=== PATIENT | male | born 1955 | race Caucasian/White ===

== ENCOUNTER → 2024-02-27 | Outpatient (CLI) | payer OTHER, SELFPAY ==
[2024-02-27 10:33] LABS: Basophils % (Auto) 1 % (0-2.5); Eosinophils # (Auto) 0.1 Thou/mm3 (0.0-0.5); Eosinophils % (Auto) 1 % (0-10); Hematocrit 43.2 % (41.0-53.0); Hemoglobin 13.9 g/dL (13.5-16.0); Immature Granulocytes % (Auto) 0 % (0-0); Immature Granulocytes Auto 0.02 Thou/mm3 (0.00-0.00); Lymphocytes # (Auto) 1.2 Thou/mm3 (1.0-4.8); Lymphocytes % (Auto) 22 % (10-50); Mean Corpuscular HGB Conc 32.2 g/dl (31.0-37.0); Mean Corpuscular Hemoglobin 28.5 pg (25.0-35.0); Mean Corpuscular Volume 89 fL (80-100); Monocytes # (Auto) 0.4 Thou/mm3 (0.0-0.8); Monocytes % (Auto) 7 % (0-12); Neutrophils # (Auto) 3.6 Thou/mm3 (1.8-7.7); Neutrophils % (Auto) 68 % (37-80); Nucleated Red Blood Cell % 0 /100 WBC (0); Platelet Count 332 Thou/mm3 (140-440); RDW Standard Deviation 45.8 fL (35.1-43.9); Red Blood Count 4.88 Miln/mm3 (4.50-5.90); White Blood Count 5.3 Thou/mm3 (3.8-10.6)
[2024-02-27 11:00] LABS: Parathyroid Hormone Intact 94.7 pg/ml (18.5-88.0)
[2024-02-27 11:13] LABS: Alanine Aminotransferase 10 U/L (10-49); Albumin, Serum 4.4 gm/dL (3.4-4.8); Alkaline Phosphatase 72 U/L (46-116); Anion Gap 9 (7-16); Aspartate Amino Transferase 14 U/L (0-34); BUN/Creatinine Ratio 15 Ratio (12-20); Bilirubin,Total 0.7 mg/dL (0.3-1.2); Blood Urea Nitrogen 23 mg/dL (9-23); Calcium 9.4 mg/dL (8.3-10.6); Calcium (Corrected) 9.4 mg/dL (8.5-10.1); Cardiac Risk Estimate 4.3 RATIO (4.0-6.7); Chloride 103 mMol/L (98-107); Cholesterol 182 mg/dL (132-200); Creatinine (Component) 1.5 mg/dL (0.6-1.3); Globulin 2.2 gm/dL (2.3-3.5); Glucose 109 mg/dL (74-106); HDL Cholesterol 42 mg/dL (40-60); LDL Cholesterol,Calculated 118 mg/dL (0-130); Osmolality,Calculated 274 (275-295); Sodium 135 mMol/L (136-145); Total Protein 6.6 gm/dL (5.7-8.2); Triglycerides 110 mg/dL (30-150); eGFR 50 See Note
[2024-02-27 11:33] LABS: Glucose Estimated Average 105 mg/dL (80-131); Hemoglobin A1C 5.3 % Hgb (4.8-6.0)
== END | disposition home or self-care (01) ==
LOC: COPL 09:04
PROVIDERS: PCP Internal Medicine; Referring Provider Urology; Visit Provider Internal Medicine
DX: I12.9 Hypertensive chronic kidney disease with stage 1 through stage 4 chronic kidney disease, or unspecified chronic kidney disease (principal); E11.22 Type 2 diabetes mellitus with diabetic chronic kidney disease; N18.30 Chronic kidney disease, stage 3 unspecified; N20.0 Calculus of kidney
CPT/HCPCS: 36415; 80053; 80061; 81001; 82043; 82570; 83036; 83970; 85025

== ENCOUNTER → 2024-05-02 | Outpatient (CLI) | payer OTHER, SELFPAY ==
[2024-05-02 11:30] LABS: Basophils % (Auto) 1 % (0-2.5); Eosinophils % (Auto) 1 % (0-10); Hematocrit 46.1 % (41.0-53.0); Hemoglobin 15.5 g/dL (13.5-16.0); Immature Granulocytes % (Auto) 0 % (0-0); Immature Granulocytes Auto 0.02 Thou/mm3 (0.00-0.00); Lymphocytes # (Auto) 1.3 Thou/mm3 (1.0-4.8); Lymphocytes % (Auto) 28 % (10-50); Mean Corpuscular HGB Conc 33.6 g/dl (31.0-37.0); Mean Corpuscular Hemoglobin 28.8 pg (25.0-35.0); Mean Corpuscular Volume 86 fL (80-100); Monocytes # (Auto) 0.4 Thou/mm3 (0.0-0.8); Monocytes % (Auto) 9 % (0-12); Neutrophils # (Auto) 2.8 Thou/mm3 (1.8-7.7); Neutrophils % (Auto) 61 % (37-80); Nucleated Red Blood Cell % 0 /100 WBC (0); Platelet Count 346 Thou/mm3 (140-440); RDW Standard Deviation 51.8 fL (35.1-43.9); Red Blood Count 5.39 Miln/mm3 (4.50-5.90); White Blood Count 4.5 Thou/mm3 (3.8-10.6)
[2024-05-02 11:41] LABS: Glucose Estimated Average 114 mg/dL (80-131); Hemoglobin A1C 5.6 % Hgb (4.8-6.0)
[2024-05-02 12:05] LABS: Alanine Aminotransferase 10 U/L (10-49); Albumin, Serum 4.5 gm/dL (3.4-4.8); Alkaline Phosphatase 65 U/L (46-116); Anion Gap 11 (7-16); Aspartate Amino Transferase 11 U/L (0-34); BUN/Creatinine Ratio 19 Ratio (12-20); Bilirubin,Total 0.8 mg/dL (0.3-1.2); Blood Urea Nitrogen 27 mg/dL (9-23); Calcium 9.6 mg/dL (8.3-10.6); Calcium (Corrected) 9.6 mg/dL (8.5-10.1); Carbon Dioxide 20.7 mMol/L (20.0-31.0); Cardiac Risk Estimate 3.4 RATIO (4.0-6.7); Chloride 104 mMol/L (98-107); Cholesterol 165 mg/dL (132-200); Creatinine (Component) 1.4 mg/dL (0.6-1.3); Globulin 2.2 gm/dL (2.3-3.5); Glucose 113 mg/dL (74-106); HDL Cholesterol 49 mg/dL (40-60); LDL Cholesterol,Calculated 103 mg/dL (0-130); Osmolality,Calculated 278 (275-295); Potassium 4.7 mMol/L (3.4-5.1); Sodium 136 mMol/L (136-145); Total Protein 6.7 gm/dL (5.7-8.2); Triglycerides 63 mg/dL (30-150); eGFR 55 See Note
== END | disposition home or self-care (01) ==
LOC: COPL 10:29
PROVIDERS: PCP Internal Medicine; Referring Provider Internal Medicine; Visit Provider Internal Medicine
DX: N17.9 Acute kidney failure, unspecified (principal); E11.9 Type 2 diabetes mellitus without complications; I10 Essential (primary) hypertension; E78.5 Hyperlipidemia, unspecified
CPT/HCPCS: 36415; 80053; 80061; 81001; 83036; 85025

== ENCOUNTER 2024-05-10 01:44 | Emergency (ER) | payer OTHER, SELFPAY ==
[2024-05-10 01:45] VITALS: BMI 35.2
--- NOTE | 2024-05-10 01:58 | XR_ITS ---
Examination: CT abdomen and pelvis without contrast. Coronal 3-D reconstructions. Sagittal 2-D reconstructions. Date and time of exam:May 10, 2024 0227 hrs. Comparison February 05, 2024 Indications: Abdominal pain and constipation beginning 4 days ago CTDI: vol (mGy): 17.9 DLP: (mGycm): 1038 Technique: Axial images of the abdomen have been obtained, 3 mm slice thickness Intravenous contrast material has not been administered. Low dose protocols were performed. One or more of the following dose reduction techniques were used; automated exposure control, adjustment of the mA and/or KV according to patient size, use of iterative reconstruction technique. Findings: Moderate enlargement left atrium left ventricle No focal liver lesions No gallstones Splenomegaly AP dimension 14.8 cm No pancreatic or adrenal mass Bilateral significant renal cortical thinning, significant perinephric stranding Right renal calculi, the largest in the lower pole 6 mm 23 mm upper pole right renal mass, consider solid mass complex cystic mass coronal image 79 No hydronephrosis Heavy abdominal aortic calcification Trace ascites No bowel obstruction Significant thickening urinary bladder wall up to 17 mm Prostatomegaly, AP dimension 5 cm Small fat-containing inguinal hernias Impression: Mild splenomegaly Significant bilateral renal cortical thinning Significant bilateral perinephric stranding, consider urinary tract infection, nephritis 23 mm complex mass upper pole right kidney, recommend MRI kidneys follow-up pre and postcontrast No bowel obstruction Significant irregular thickening of the urinary bladder wall, differential would include cystitis, early bladder cancer not excluded
--- NOTE | 2024-05-10 01:59 | PD.EDRME ---
Rapid Medical Screening Exam RME Arrival date/time: 05/10/24 01:44 68-year-old male with no known medical history presents to the emergency room with a chief complaint of abdominal distention and constipation x 4 days. I have greeted and performed a focused initial assessment of this patient. A comprehensive ED assessment and evaluation of the patient, analysis of all test results, and completion of the medical decision making process will be conducted by additional ED providers. Chief Complaint: Abdominal Pain Vital signs reviewed by provider: Yes
[2024-05-10 02:32] VITALS: BP 140/85; PULSE 83; RESP 18; TEMP 36.7; O2SAT 96
[2024-05-10 02:32] LABS: Basophils % (Auto) 1 % (0-2.5); Eosinophils # (Auto) 0.1 Thou/mm3 (0.0-0.5); Eosinophils % (Auto) 1 % (0-10); Hematocrit 47.1 % (41.0-53.0); Hemoglobin 15.5 g/dL (13.5-16.0); Immature Granulocytes % (Auto) 1 % (0-0); Immature Granulocytes Auto 0.03 Thou/mm3 (0.00-0.00); Lymphocytes # (Auto) 1.5 Thou/mm3 (1.0-4.8); Lymphocytes % (Auto) 32 % (10-50); Mean Corpuscular HGB Conc 32.9 g/dl (31.0-37.0); Mean Corpuscular Hemoglobin 28.5 pg (25.0-35.0); Mean Corpuscular Volume 87 fL (80-100); Monocytes # (Auto) 0.4 Thou/mm3 (0.0-0.8); Monocytes % (Auto) 9 % (0-12); Neutrophils # (Auto) 2.6 Thou/mm3 (1.8-7.7); Neutrophils % (Auto) 56 % (37-80); Nucleated Red Blood Cell % 0 /100 WBC (0); Platelet Count 347 Thou/mm3 (140-440); Red Blood Count 5.44 Miln/mm3 (4.50-5.90); White Blood Count 4.7 Thou/mm3 (3.8-10.6)
[2024-05-10] MEDS: MAGNESIUM CITRATE 300 ML BTL PO (02:35)
[2024-05-10 02:47] LABS: Albumin, Serum 4.8 gm/dL (3.4-4.8); Albumin/Globulin Ratio 1.9 (1.2-2.2); Alkaline Phosphatase 67 U/L (46-116); Anion Gap 10 (7-16); Aspartate Amino Transferase 15 U/L (0-34); BUN/Creatinine Ratio 14 Ratio (12-20); Bilirubin,Total 0.5 mg/dL (0.3-1.2); Blood Urea Nitrogen 24 mg/dL (9-23); Calcium 9.6 mg/dL (8.3-10.6); Calcium (Corrected) 9.6 mg/dL (8.5-10.1); Carbon Dioxide 20.4 mMol/L (20.0-31.0); Chloride 105 mMol/L (98-107); Creatinine (Component) 1.7 mg/dL (0.6-1.3); Estimated Creatinine Clearance 51.9 mL/min (>60); Globulin 2.5 gm/dL (2.3-3.5); Glucose 114 mg/dL (74-106); Lipase 93 U/L (12-53); Osmolality,Calculated 275 (275-295); Potassium 4.2 mMol/L (3.4-5.1); Sodium 135 mMol/L (136-145); Total Protein 7.3 gm/dL (5.7-8.2); eGFR 43 See Note
[2024-05-10 02:53] LABS: Alanine Aminotransferase 11 U/L (10-49)
[2024-05-10 02:54] LABS: Collection Type, Urine Clean Catch
--- NOTE | 2024-05-10 03:07 | PRELIM_ITS ---
CT scan of the abdomen and pelvis without intravenous contrast (axial sections with sagittal and merlyn nal reformats) May 10, 2024 at 0227 hours Clinical History: Abdominal pain, constipation 4 days.C omparison: None.Findings:Bibasilar streaky atelectasis is present. There is streaky atelectasis/scarr ing in the right middle lobe. A small hiatal hernia is present.Nonspecific perinephric fat stranding and fluid is noted bilaterally. There is bilateral renal artery atherosclerosis. There are nonobstruc ting right renal calculi, the largest measuring 8 mm in the lower pole calyx. No ureteric calculus or hydroureteronephrosis. There is a 2.4 cm exophytic complex cyst/neoplasm from the upper pole of the right kidney. There is mild splenomegaly measuring 15.7 cm. The liver, gallbladder, pancreas and adre nals are unremarkable on this noncontrast study.A moderate amount of fecal material is present in the colon. No evidence of bowel obstruction. The appendix is within normal limits (images [id number]/[id number]). Th ere is a hernia mesh in the ventral abdominal wall. There is no mesenteric or retroperitoneal adenopa thy. The aorta and its branches demonstrate atheromatous calcification without evidence of aneurysm.T he urinary bladder is partially distended and demonstrates mild wall thickening with perivesical fat stranding. The prostate is moderately enlarged. There is no free fluid or free air.Degenerative pierre es are identified in the spine. 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 There are chronic fractures of the bilateral ribs.Impression:1. No evidence of bowel obstruction, free air or a bscess.2. Findings suspicious for acute cystitis. Recommend clinical and laboratory correlation.3. Pe rinephric fat stranding bilaterally. While nonspecific, the possibility of urinary infection cannot b e excluded. Recommend clinical correlation.4. Small nonobstructing right renal calculi. No ureteric c alculus or ureteral obstruction.5. Exophytic complex right renal cyst/neoplasm. Recommend correlation with sonography/contrast CT abdomen.6. Small hiatal hernia present. Report Electronically Signed By: Todd Payton 05/10/2024 3:07:33 AM [EST]
[2024-05-10 03:46] LABS: Bilirubin,Urine Negative (Negative); Blood,Urine Negative (Negative); Clarity,Urine Clear (Clear/Hazy); Color,Urine Lt-Yellow (Lt Yel-Yel); Glucose, Urine Negative (Negative); Ketones,Urine Negative (Negative); Leukocyte Esterase,Urine Negative (Negative); Nitrite,Urine Negative (Negative); Protein,Urine Trace (Neg - Trace); RBC,Urine < 1 /hpf (0-3); Specific Gravity,Urine 1.016 (1.001-1.035); Squamous Epithelial Cell,Urine < 1 /hpf (0-5); Urobilinogen,Urine Negative mg/dL (0.0-1.0); WBC,Urine 1 /hpf (0-5)
--- NOTE | 2024-05-10 04:15 | EDNOTE_ITS ---
ED Abdominal Pain RME/HPI General Chief Complaint: Abdominal Pain Stated complaint: NO BM X 4 DAYS Time seen by provider: 05/10/24 04:11 Arrival date/time: 05/10/24 01:44 Limitations: no limitations RME / HPI RME / HPI narrative: 05/10/24 01:44 68-year-old male with no known medical history presents to the emergency room with a chief complaint of abdominal distention and constipation x 4 days. I have greeted and performed a focused initial assessment of this patient. A comprehensive ED assessment and evaluation of the patient, analysis of all test results, and completion of the medical decision making process will be conducted by additional ED providers. -------- Dr. Chowdhury's Main ED Evaluation: 68yo male with pmhx HTN presents to the ED for a chief complaint of constipation x 4 days. Patient reports associated abdominal distention. He states he's been taking Miralax without any relief. He denies any N/V, fever, chills or any other associated symptoms. He denies taking any enemas. No known allergies. Related Data Previous Rx's ?Medication ?Instructions ?Recorded dicyclomine 20 mg tablet 20 mg PO BID #20 tabs 02/05/24 docusate sodium 250 mg capsule 250 mg PO QDAY #20 caps 02/05/24 Allergies Allergy/AdvReac Type Severity Reaction Status Date / Time No Known Allergies Allergy Verified 05/10/24 01:46 Review of Systems Review of Systems Systems Reviewed: All systems reviewed, normal except as documented Past Medical History Past Medical History NEUROLOGIC: Negative Neurological Disorders or Seizures CARDIAC: Positive Cardiac Disorders and Hypertension; Negative Congestive Heart Failure RESPIRATORY: Negative Chronic Obstructive Pulmonary Disease (COPD) GASTROINTESTINAL: Negative Gastrointestinal Disorders GENITOURINARY: Negative Genitourinary Disorders or Renal Disease MUSCULOSKELETAL: Negative Musculoskeletal Disorders ENDOCRINE: Negative Endocrine Disorders, Diabetes Mellitus Type 1 or Diabetes Mellitus Type 2 HEMATOLOGIC: Negative Blood Disorders OTHER HISTORY: Positive Measles; Negative Hospitalization, Down Syndrome, Developmental Delay, Falls, Blood Transfusions, Anesthesia Reactions or Cancer Social History SMOKING STATUS: Never smoker ED Exam General Limitations: Present no limitations General appearance: Present alert and in no apparent distress Head Head exam: Present atraumatic Eye Eye exam: Present normal appearance, PERRL and EOMI ENT ENT exam: Present normal exam, normal oropharynx and mucous membranes moist Neck Neck exam: Present normal inspection, full ROM and trachea midline Chest Chest inspection: Present normal inspection and symmetric chest wall rise Respiratory Respiratory exam: Present normal lung sounds bilaterally Cardiovascular Cardiovascular exam: Present regular rate, normal rhythm and normal heart sounds Abdominal Exam Abdominal exam: Present soft, normal bowel sounds and other (large); Absent distention or rebound Extremities Exam Extremities exam: Present normal inspection and full ROM Back Exam Back exam: Present normal inspection and full ROM Neurological Exam Neurological exam: Present alert, oriented X3 and CN II-XII intact Psychiatric Psychiatric exam: Present normal affect and normal mood Skin Skin exam: Present warm, dry, intact and normal color Course Course Course Narrative: 0503: Patient had a large bowel movement and feels significantly better. Patient is stable to be discharged home. Quality Measures none Orders Category Date Time Status Fleet [Enema Administration] ONCE Care 05/10/24 04:[address] abdomen pelvis wo con Stat Exams 05/10/24 01:58 Taken CBC Stat Lab 05/10/24 02:18 Completed CMP [Comprehensive Metabolic Panel] Stat Lab 05/10/24 02:18 Completed Lipase Stat Lab 05/10/24 02:18 Completed UA [Urinalysis] Stat Lab 05/10/24 02:22 Completed Urine Culture Stat Lab 05/10/24 02:22 Received Dicyclomine [Bentyl] Med 05/10/24 04:29 Discontinued 20 mg PO X1 ONE Docusate Sod [Colace] Med 05/10/24 04:34 Discontinued 250 mg PO X1 ONE Docusate Sod [Colace] Med 05/10/24 04:34 Discontinued 250 mg PO X1 ONE Magnesium Citrate Liqd [Citrate of Magnesia Liqd] Med 05/10/24 01:58 Discontinued 300 ml PO X1 ONE Senna/Docusate Sod [Senokot S] Med 05/10/24 04:29 Discontinued 1 tab PO X1 ONE Senna/Docusate Sod [Senokot S] Med 05/10/24 04:29 Discontinued 1 tab PO X1 ONE Vital Signs Vital signs: Vital Signs Temperature 98.0 F 05/10/24 02:32 Pulse Rate 83 05/10/24 02:32 Respiratory Rate 18 05/10/24 02:32 Blood Pressure 140/85 H 05/10/24 02:32 Pulse Oximetry (%) 96 05/10/24 02:32 Oxygen Delivery Method Room Air 05/10/24 02:32 Pulse ox is 96% on room air, which is normal according to my interpretation. Abdominal Pain MDM Patient data External records reviewed:: [facility] previous records (Per chart review, patient was seen here on 02/05/24 for constipation.) Clinical information provided by:: patient Social determinants that could affect healthcare access:: none Patient has the following chronic illnesses:: HTN How is presenting disease/condition affected by chronic disease/condition?: uneffected by Evaluation data The following diagnostics were reviewed and interpreted by me:: lab results and radiology exam(s) Lab and/or radiology exams considered but not ordered:: none Interpretation Summary: CBC is normal, Creatinine is elevated at 1.7 (which is chronic), Lipase is slightly elevated, UA is unremarkable, according to my interpretation. ----- Telerad Preliminary Report Draft Patient: JUNIOR HUBBARD Record#: [id number] Birthdate: 1955 Age/Sex: 68 / M Location: [facility] Attending Dr: Ordering Physician: Date of Service: Procedure(s): Accession Number(s): cc: ~ CT scan of the abdomen and pelvis without intravenous contrast (axial sections with sagittal and coronal reformats) May 10, 2024 at 0227 hours Clinical History: Abdominal pain, constipation 4 days. Comparison: None. Findings: Bibasilar streaky atelectasis is present. There is streaky atelectasis/scarring in the right middle lobe. A small hiatal hernia is present. Nonspecific perinephric fat stranding and fluid is noted bilaterally. There is bilateral renal artery atherosclerosis. There are nonobstructing right renal calculi, the largest measuring 8 mm in the lower pole calyx. No ureteric calculus or hydroureteronephrosis. There is a 2.4 cm exophytic complex cyst/neoplasm from the upper pole of the right kidney. There is mild splenomegaly measuring 15.7 cm. The liver, gallbladder, pancreas and adrenals are unremarkable on this noncontrast study. A moderate amount of fecal material is present in the colon. No evidence of bowel obstruction. The appendix is within normal limits (images [id number]/[id number]). There is a hernia mesh in the ventral abdominal wall. There is no mesenteric or retroperitoneal adenopathy. The aorta and its branches demonstrate atheromatous calcification without evidence of aneurysm. The urinary bladder is partially distended and demonstrates mild wall thickening with perivesical fat stranding. The prostate is moderately enlarged. There is no free fluid or free air. Degenerative changes are identified in the spine. 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 There are chronic fractures of the bilateral ribs. Impression: 1. No evidence of bowel obstruction, free air or abscess. 2. Findings suspicious for acute cystitis. Recommend clinical and laboratory correlation. 3. Perinephric fat stranding bilaterally. While nonspecific, the possibility of urinary infection cannot be excluded. Recommend clinical correlation. 4. Small nonobstructing right renal calculi. No ureteric calculus or ureteral obstruction. 5. Exophytic complex right renal cyst/neoplasm. Recommend correlation with sonography/contrast CT abdomen. 6. Small hiatal hernia present. Report Electronically Signed By: Todd Payton 05/10/2024 3:07:33 AM [EST] Medications / Prescriptions Medications or Prescriptions considered but not ordered:: none Medication administrations:: Medication Administration History Discontinued Medications Dicyclomine HCl (Dicyclomine 10 Mg Capsule) 20 mg PO X1 ONE Stop: 05/10/24 04:30 Last Admin: 05/10/24 05:03 Dose: 20 mg Documented By: ABRIL Docusate Sodium (Docusate Sod 250 Mg Capsule) 250 mg PO X1 ONE; Protocol Stop: 05/10/24 04:35 Last Admin: 05/10/24 04:37 Dose: Not Given Documented By: ABRIL Non-Admin Reason: Discontinued Docusate Sodium (Docusate Sod 250 Mg Capsule) 250 mg PO X1 ONE; Protocol Stop: 05/10/24 04:35 Last Admin: 05/10/24 05:03 Dose: 250 mg Documented By: GB Magnesium Citrate (Magnesium Citrate 300 Ml Btl) 300 ml PO X1 ONE Stop: 05/10/24 01:59 Last Admin: 05/10/24 02:35 Dose: 300 ml Documented By: AWAIS Sennosides (Senna/Docusate Sod 1 Tab Tablet) 1 tab PO X1 ONE; Protocol Stop: 05/10/24 04:30 Last Admin: 05/10/24 04:31 Dose: Not Given Documented By: GB Non-Admin Reason: Discontinued Sennosides (Senna/Docusate Sod 1 Tab Tablet) 1 tab PO X1 ONE; Protocol Stop: 05/10/24 04:30 Last Admin: 05/10/24 04:38 Dose: Not Given Documented By: ABRIL Non-Admin Reason: Discontinued see above Consultations Consultation(s) initiated? (list below): No Diagnosis Differential diagnosis abdominal pain: constipation, small bowel obstruction and other (fecal impaction, dehydration) Most likely diagnosis given after review of the tests above:: see below Admission Indicated Admission indicated?: not indicated Admission Request Was there a request for admission?: No Disposition Plan Disposition Plan: Discharge Discharge Attestation Discharge Attestation: The patient and all family members were given an opportunity to ask questions and understood the discharge instructions. Discharge instructions specifically effects, indications for sooner follow up or return to the emergency department, and the expected course of current diagnosis. Patient condition: Stable Discharge Plan Plan Patient Disposition: HOME (Self Care) Patient condition on transfer: Stable Prescriptions/Referrals Prescriptions/Med Rec: No Action dicyclomine 20 mg tablet 20 mg PO BID Qty: 20 0RF docusate sodium 250 mg capsule 250 mg PO QDAY Qty: 20 0RF Referrals: Leslye Kraus)Clemente MD [Primary Care Provider] - In 1 week Problem List Clinical Impression: Constipation Patient/Caregiver Discharge Instructions Education Materials: ED Constipation (Adult) Additional Instructions: Continue your constipation meds as prescribed. Please return to emergency department for any worsening symptoms, or any other concerns. Print Language: Emirati Stand Alone Forms: Sherrie Award Info., Patient Portal Info Letter
--- NOTE | 2024-05-10 04:28 | PC.NURSE ---
Offered enema to pt. Pt asking for the same meds he got here last time he was here for constipation. Per chart review pt received docusate and dicyclomine. Spoke with MD Chowdhury who gave verbal orders for these meds.
[2024-05-10] MEDS: DOCUSATE SOD 250 MG CAPSULE PO (05:03)
[2024-05-10] MEDS: DICYCLOMINE 10 MG CAPSULE 20 MG PO (05:03)
--- NOTE | 2024-05-10 05:04 | PC.NURSE ---
Pt ambulated to restroom and stated he had one large BM. MD Chowdhury made aware.
[2024-05-10 05:44] VITALS: PULSE 79; RESP 15; O2SAT 98
== END 2024-05-10 05:44 | disposition home or self-care (01) ==
PROVIDERS: Nurse Practitioner Family; Emergency Provider Emergency Medicine; PCP Internal Medicine
DX: K59.00 Constipation, unspecified (principal); N20.0 Calculus of kidney; K44.9 Diaphragmatic hernia without obstruction or gangrene; N28.1 Cyst of kidney, acquired
CPT/HCPCS: 36415; 74176; 80053; 81001; 83690; 85025; 87086; 99284; A9270

== ENCOUNTER 2024-05-17 07:37 | Emergency (ER) | payer OTHER, SELFPAY ==
[2024-05-17 07:44] VITALS: BP 129/79; PULSE 73; RESP 19; TEMP 36.4; O2SAT 97; BMI 34.7
--- NOTE | 2024-05-17 09:28 | EDNOTE_ITS ---
ED General RME/HPI General Chief complaint: Abdominal Pain Stated complaint: NO BOWEL MOVEMENT X TUESDAY EVENING; ER ON TUESDAY Time Seen by Provider: 05/17/24 09:00 Arrival date/time: 05/17/24 07:37 RME / HPI RME / HPI narrative: Chief complaint: abdominal distention HPI: Patient is a 68 year old male with PMH of chronic constipation x 3 years after a traumatic pelvic injury, colonic polyps and obesity, who presented to the ER with severe abdominal distention for the last 4 days. Patient has been unable to have a bowel movement for 4 days, and unable to pass gas over the last 3 days. He was recently seen in the ER on Tuesday and was given MiraLAX with a successful bowel movement a couple hours later. He was discharged on MiraLAX which he took on Tuesday, about 48 hours ago, with minimal relief at home. He has a history of using multiple laxatives including enemas, with minimal relief. At this time he denies any abdominal pain, and endorses only discomfort due to distention. He does feel the urge to have a bowel movement, however when he sits on the commode there is no output. He denies any fevers, nausea / vomiting or other systemic symptoms at this time. Medication list: Linzess q daily Past surgical history: No abdominal surgeries Left foot bunion removal Allergies: NKFDA Social history: Marital?Status:? Tobacco?Use:?Denies ETOH?Use:?Denies Drug?Note:?Denies Social?History?Note:?Lives?alone at home, son visits frequently Family history: Denies any family history of colon cancer, stroke or other bowel issues. Father?, myocardial infarction at age 63. Related Data Previous Rx's ?Medication ?Instructions ?Recorded dicyclomine 20 mg tablet 20 mg PO BID #20 tabs 02/05/24 docusate sodium 250 mg capsule 250 mg PO QDAY #20 caps 02/05/24 glycerin (adult) 1 supp SD QDAY constipation 1 05/17/24 month #25 ea polyethylene glycol 3350 17 4 g PO QDAY 5 days #119 grams 05/17/24 gram/dose oral powder (Miralax) Allergies Allergy/AdvReac Type Severity Reaction Status Date / Time No Known Allergies Allergy Verified 05/17/24 07:39 Review of Systems Review of Systems Narrative Review of Systems: GENERAL: Denies fevers/chills or diaphoresis. HEENT: Denies headache or visual/hearing changes. Denies nasal discharge. NEURO: Denies unusual weakness or difficulty speaking. CARDIO: Denies chest pain or palpitations. PULM: Denies SOB, coughing, or wheezing. GI: Abdominal distention, denies abdominal pain, N/V/D. Reports no BM over the last 4 days, no flatus over the last 3 days URO: Denies burning/itching/pain/urinary changes. MSK/EXT/SKIN: Denies joint/skeletal/muscle pain, issues/changes in upper or lower extremities, itchiness, or superficial pain. PSYCH: Cooperative, pleasant mood & affect. The rest of the review of systems is otherwise negative. ED Exam Narrative Physical exam: Constitutional Alert, oriented x4 and in moderate discomfort HEENT Vision grossly intact. Patent nares. Trachea midline. Respiratory Chest normal on inspection and clear to auscultation bilaterally. Cardiovascular S1 and S2 audible, RRR. No murmurs or carotid bruit. No gross JVD. Abdominal Significantly distended, non tender to palpation in all quadrants. BS + Genitourinary No bladder tenderness, no flank pain. Normal to palpation. Musculoskeletal Extremities tone within normal limits. 2+ LE edema. Neurological CN II - XII grossly intact. Extremity motor and sensation grossly intact. Skin Warm, dry and intact. No apparent lesions. Psychiatric Patient has a good affect, is cooperative. Course Quality Measures none Orders Category Date Time Status Glycerin Supp Adult Med 05/17/24 09:39 Discontinued 1 each SD X1 ONE Polyeth Glycol/Propylene Glyco [Miralax Pkt] Med 05/17/24 09:39 Discontinued 17 gm PO X1 ONE Vital Signs Vital signs: Vital Signs Temperature 97.6 F 05/17/24 07:44 Pulse Rate 73 05/17/24 07:44 Respiratory Rate 19 05/17/24 07:44 Blood Pressure 129/79 05/17/24 07:44 Pulse Oximetry (%) 97 05/17/24 07:44 Oxygen Delivery Method Room Air 05/17/24 07:[address] [facility] Patient data External records reviewed:: [facility] previous records Clinical information provided by:: patient Social determinants that could affect healthcare access:: none Patient has the following chronic illnesses:: chronic constipation x 3 years after a traumatic pelvic injury, colonic polyps and obesity How is presenting disease/condition affected by chronic disease/condition?: exacerbated by Evaluation data The following diagnostics were reviewed and interpreted by me:: radiology exam(s) Lab and/or radiology exams considered but not ordered:: Repeat CT abdo Recent abdomen CT scans x2, last one from 05/10 Interpretation Summary: Abdominal distention secondary to constipation and obstipation Medications Medications considered but not ordered:: Lactulose Medication administrations:: Medication Administration History Discontinued Medications Glycerin (Glycerin, Adult 1 Ea Supp) 1 each SD X1 ONE Stop: 05/17/24 09:40 Last Admin: 05/17/24 10:48 Dose: 1 each Documented By: FOSTER Polyethylene Glycol (Polyethylene Glycol 17 Gm Packet) 17 gm PO X1 ONE Stop: 05/17/24 09:40 Last Admin: 05/17/24 10:48 Dose: 17 gm Documented By: FOSTER p.o. only Consultations Consultation(s) initiated? (list below): No Diagnosis Differential Diagnosis ED Complaint MDM: SBO Most likely diagnosis given after review of the tests above:: Severe constipation Admission Indicated Admission indicated?: not indicated Explain why admission is indicated or not indicated:: will do a 3-5 day trial of DAILY laxative. Admission Request Was there a request for admission?: No Disposition Plan Disposition Plan: Discharge Discharge Attestation Discharge Attestation: The patient and all family members were given an opportunity to ask questions and understood the discharge instructions. Discharge instructions specifically effects, indications for sooner follow up or return to the emergency department, and the expected course of current diagnosis. Patient condition: Stable Medical Decision Making MDM Narrative MDM Narrative: Patient is a 68 year old male in ER for constipation x 4 days. HE was last seen in ER 4 days ago when for similar presentation. at that time he was given miralax x 1 and had a large BM. He was advised daily laxatives however has not been compliant and only used laxatives x1 in this 4 day period. Discharge plan: - Follow up with PCP within 1 week - Take Miralax daily - Take Glycerrin suppository daily - As needed Mineral oil enema if no relief from the above two - Recommend high fiber diet - Return to ED if symptoms worsen or do not resolve in 5 days Differential Diagnosis Differential Diagnosis: SBO Discharge Plan Plan Patient Disposition: HOME (Self Care) Patient condition on transfer: Stable Prescriptions/Referrals Prescriptions/Med Rec: New glycerin (adult) Suppository 1 supp SD QDAY 30 Days Qty: 25 0RF polyethylene glycol 3350 [Miralax] 17 gram/dose powder 4 g PO QDAY 5 Days Qty: 119 0RF No Action dicyclomine 20 mg tablet 20 mg PO BID Qty: 20 0RF docusate sodium 250 mg capsule 250 mg PO QDAY Qty: 20 0RF Referrals: Clemente Gavin MD [Primary Care Provider] - In 1 week Problem List Clinical Impression: Constipation Patient/Caregiver Discharge Instructions Other Activity Instructions:: Discharge plan: - Follow up with PCP within 1 week - Take Miralax daily - Take Glycerrin suppository daily - As needed Mineral oil enema if no relief from the above two - Recommend high fiber diet - Return to ED if symptoms worsen or do not resolve in 5 days Education Materials: Eating a High-Fiber Diet Print Language: [place] Stand Alone Forms: Sherrie Award Info., Patient Portal Info Letter Attestation Attestation The patient was seen by the PGY-2. I, the supervising physician, also encountered and examined the patient and remained throughout present during the entire ER visit. Deliberation with the PGY 2, workup, management, treatment, medical decision making, and documentation was formulated. I agree with the plan and documentation.
[2024-05-17 09:43] VITALS: BP 126/67; PULSE 67; RESP 16; TEMP 36.6; O2SAT 97
[2024-05-17] MEDS: GLYCERIN, ADULT 1 EA SUPP 1 EACH PR (10:48)
[2024-05-17] MEDS: POLYETHYLENE GLYCOL 17 GM PACKET PO (10:48)
== END 2024-05-17 11:06 | disposition home or self-care (01) ==
PROVIDERS: Emergency Provider Emergency Medicine; PCP Internal Medicine
DX: K59.00 Constipation, unspecified (principal)
CPT/HCPCS: 99282; A9270

== ENCOUNTER → 2024-08-13 | Outpatient (BNVA) | payer OTHER, SELFPAY | END | disposition home or self-care (01) | PROVIDERS: PCP Internal Medicine; Referring Provider Internal Medicine; Visit Provider Urology | DX: N40.1 Benign prostatic hyperplasia with lower urinary tract symptoms (principal); N13.8 Other obstructive and reflux uropathy; N32.89 Other specified disorders of bladder; N28.89 Other specified disorders of kidney and ureter; I10 Essential (primary) hypertension | CPT/HCPCS: 76872; 81003 ==

== ENCOUNTER 2024-08-19 00:42 | Emergency (ER) | payer OTHER, SELFPAY ==
[2024-08-19 00:43] VITALS: BMI 33.5
[2024-08-19 00:49] VITALS: BP 135/81; PULSE 78; RESP 20; TEMP 36.4; O2SAT 97
--- NOTE | 2024-08-19 01:12 | PD.EDRME ---
Rapid Medical Screening Exam RME Arrival date/time: 08/19/24 00:42 Chief Complaint: Abdominal Pain Time Seen by Provider: 08/19/24 00:53 Vital signs: Vital Signs Temperature 97.5 F 08/19/24 00:49 Pulse Rate 78 08/19/24 00:49 Respiratory Rate 20 08/19/24 00:49 Blood Pressure 135/81 H 08/19/24 00:49 Pulse Oximetry (%) 97 08/19/24 00:49 Oxygen Delivery Method Room Air 08/19/24 00:49 RME Narrative: sudden onset of left flank pain since 1999 last night. No vomiting or hematuria
--- NOTE | 2024-08-19 01:13 | XR_ITS ---
Examination: CT abdomen and pelvis without contrast. Coronal 3-D reconstructions. Sagittal 2-D reconstructions. Date and time of exam:August 19, 2024 0209 hours INDICATION: Left flank pain beginning 2 days ago CTDI: vol (mGy): 12.5 DLP: (mGycm): 735 Technique: Axial images of the abdomen have been obtained, 3 mm slice thickness Intravenous contrast material has not been administered. Low dose protocols were performed. One or more of the following dose reduction techniques were used; automated exposure control, adjustment of the mA and/or KV according to patient size, use of iterative reconstruction technique. Findings: Moderate enlargement cardiac contour No focal liver lesions Significant splenomegaly, liver is irregular in contour No gallstones No pancreatic or adrenal mass Prominent perinephric stranding with renal cortical thinning Multiple right renal calculi including a 4 mm calculus in the right renal pelvis, no hydronephrosis or ureteral calculi Aortic calcification no aneurysmal dilatation Normal appendix AP prostate dimension 5 cm Minimal urinary bladder wall thickening up to 3 mm Grade 1 anterolisthesis L5 on S1 IMPRESSION: Prominent perinephric stranding, consider urinary tract infection Multiple right renal calculi including a 4 mm calculus in the right renal pelvis No hydronephrosis or ureteral calculi Significant prostatomegaly Cystitis pattern
[2024-08-19] MEDS: ACETAMINOPHEN 500 MG TABLET 1000 MG PO (01:23)
[2024-08-19] MEDS: KETOROLAC INJ 60 MG/2 ML VIAL 30 MG IM (01:24)
[2024-08-19 01:55] VITALS: BP 125/73; PULSE 87; RESP 18; O2SAT 98
--- NOTE | 2024-08-19 02:11 | XR_ITS ---
Examination: AP chest single view TECHNIQUE: AP portable upright chest single view Exam date and time: August 19, 2024 0232 hours Comparison February 05, 2024 INDICATIONS: Sudden onset chest pain beginning 8:00 PM last night FINDINGS: Mild prominence cardiac contour No pneumonia or pulmonary edema Accentuation basilar bronchovascular markings IMPRESSION: Basilar bronchitis pattern Old right-sided rib fractures
[2024-08-19 02:14] LABS: Collection Type, Urine Clean Catch
[2024-08-19 02:16] LABS: Basophils % (Auto) 1 % (0-2.5); Eosinophils # (Auto) 0.1 Thou/mm3 (0.0-0.5); Eosinophils % (Auto) 1 % (0-10); Hematocrit 51.1 % (41.0-53.0); Hemoglobin 17.1 g/dL (13.5-16.0); Immature Granulocytes % (Auto) 0 % (0-0); Immature Granulocytes Auto 0.01 Thou/mm3 (0.00-0.00); Lymphocytes # (Auto) 1.5 Thou/mm3 (1.0-4.8); Lymphocytes % (Auto) 32 % (10-50); Mean Corpuscular HGB Conc 33.5 g/dl (31.0-37.0); Mean Corpuscular Hemoglobin 29.7 pg (25.0-35.0); Mean Corpuscular Volume 89 fL (80-100); Monocytes # (Auto) 0.4 Thou/mm3 (0.0-0.8); Monocytes % (Auto) 10 % (0-12); Neutrophils # (Auto) 2.6 Thou/mm3 (1.8-7.7); Neutrophils % (Auto) 56 % (37-80); Nucleated Red Blood Cell % 0 /100 WBC (0); Platelet Count 295 Thou/mm3 (140-440); RDW Standard Deviation 44.8 fL (35.1-43.9); Red Blood Count 5.75 Miln/mm3 (4.50-5.90); White Blood Count 4.5 Thou/mm3 (3.8-10.6)
[2024-08-19 02:18] LABS: Bilirubin,Urine Negative (Negative); Blood,Urine Negative (Negative); Clarity,Urine Clear (Clear/Hazy); Color,Urine Colorless (Lt Yel-Yel); Glucose, Urine Negative (Negative); Ketones,Urine Negative (Negative); Leukocyte Esterase,Urine Negative (Negative); Nitrite,Urine Negative (Negative); PH,Urine 6.5 (5.0-7.0); Protein,Urine Negative (Neg - Trace); RBC,Urine 1 /hpf (0-3); Specific Gravity,Urine 1.008 (1.001-1.035); Squamous Epithelial Cell,Urine 1 /hpf (0-5); Urobilinogen,Urine Negative mg/dL (0.0-1.0); WBC,Urine 1 /hpf (0-5)
--- NOTE | 2024-08-19 02:20 | PD.EDABDPN ---
ED Abdominal Pain RME/HPI General Chief Complaint: Abdominal Pain Stated complaint: LEFT FLANK PAIN Time seen by provider: 08/19/24 00:53 Arrival date/time: 08/19/24 00:42 Source: patient and family Mode of arrival: ambulatory Limitations: no limitations RME / HPI RME / HPI narrative: Dr. Barclay HPi: complaint: flank pain Onset (ago): day(s) Consistency: intermittent Location: LUQ Severity: mild Severity scale (1-10): 3 Quality: stabbing Radiation: none Migration to: no migration Relieving factors: movement Exacerbating factors: rest Context: other (none) Associated symptoms: other (No nausea vomiting diarrhea fever chills. History of constipation. Show look to the acid just medicine that you are back about her gave you) Related Data Previous Rx's ?Medication ?Instructions ?Recorded dicyclomine 20 mg tablet 20 mg PO BID #20 tabs 02/05/24 docusate sodium 250 mg capsule 250 mg PO QDAY #20 caps 02/05/24 Allergies Allergy/AdvReac Type Severity Reaction Status Date / Time No Known Allergies Allergy Verified 08/13/24 13:12 ED Exam General Limitations: Present no limitations General appearance: Present alert and in no apparent distress Head Head exam: Present atraumatic Eye Eye exam: Present normal appearance, PERRL and EOMI ENT ENT exam: Present normal exam, normal oropharynx and mucous membranes moist Neck Neck exam: Present normal inspection, full ROM and trachea midline Chest Chest inspection: Present normal inspection and symmetric chest wall rise Respiratory Respiratory exam: Present normal lung sounds bilaterally Cardiovascular Cardiovascular exam: Present regular rate, normal rhythm and normal heart sounds Abdominal Exam Abdominal exam: Present soft and normal bowel sounds Extremities Exam Extremities exam: Present normal inspection and full ROM Back Exam Back exam: Present normal inspection and full ROM Neurological Exam Neurological exam: Present alert, oriented X3 and CN II-XII intact Psychiatric Psychiatric exam: Present normal affect and normal mood Skin Skin exam: Present warm, dry, intact and normal color Course Course Course Narrative: CT scan is obtained. The patient is given pain medicine and he resolved. Quality Measures none Orders Category Date Time Status Insert IV NOW Care 08/19/24 02:[address] abdomen pelvis wo con Stat Exams 08/19/24 01:13 Taken CXRP [XR chest 1V portable] Stat Exams 08/19/24 02:11 Taken CBC Stat Lab 08/19/24 01:59 Completed CMP [Comprehensive Metabolic Panel] Stat Lab 08/19/24 01:59 Completed Lipase Stat Lab 08/19/24 01:59 Completed UA [Urinalysis] Stat Lab 08/19/24 02:04 Completed Acetaminophen Tab [Tylenol ES Tab] Med 08/19/24 01:15 Discontinued 1,000 mg PO X1 ONE Ketorolac Inj [Toradol Inj] Med 08/19/24 01:15 Discontinued 30 mg IM X1 ONE Reevaluation(s) Reevaluation #1: Pain-free. Time: 05:41 Vital Signs Vital signs: Vital Signs Temperature 97.5 F 08/19/24 00:49 Pulse Rate 78 08/19/24 00:49 Respiratory Rate 20 08/19/24 00:49 Blood Pressure 135/81 H 08/19/24 00:49 Pulse Oximetry (%) 97 08/19/24 00:49 Oxygen Delivery Method Room Air 08/19/24 00:49 Abdominal Pain MDM MDM Narrative MDM Narrative:: 69-year-old male who gets followed by urology presenting to the emergency department with left flank pain. While emergency department the patient had a workup to include no fever. The white count was normal at 4.[address] scan shows a simple right renal cyst. The patient has acute on chronic renal failure and creatinine is 1.5. The patient is having left flank pain and not right upper quadrant pain. There is no association with food. At this time I do not feel the patient needs a ultrasound to rule out gallbladder disease. He does have a total bili of 1.7 but otherwise his alk phos is normal. At this time I do not suspect that the patient is having acute cholecystitis. CT scan is not showing obvious abdominal mass. There is no evidence of UTI and otherwise the patient feels better after given some pain medicine here in the emergency department. He will continue his MiraLAX as needed for constipation. We discussed the amount but the patient is not very happy and does not appear to want to continue MiraLAX. He is followed by Dr. Gavin, he is taking his medications as prescribed. Return precautions are given and understood. Patient data External records reviewed:: [facility] previous records (Seen by urology) Clinical information provided by:: patient and family Social determinants that could affect healthcare access:: none Patient has the following chronic illnesses:: BPH. How is presenting disease/condition affected by chronic disease/condition?: exacerbated by Evaluation data The following diagnostics were reviewed and interpreted by me:: lab results Lab and/or radiology exams considered but not ordered:: none Interpretation Summary: CBC 4.5 and normal. Hemoglobin is 17 which is slightly elevated. Platelets are 295 which are normal. Sodium is 134. Potassium is 4.4. CO2 is 28. Otherwise BUN/creatinine are slightly elevated at 1.5. Patient has a history of chronic renal sufficiency and his previous creatinine is 1.7. Total bili is 1.7 which is abnormal. His bilirubin was normal at 0.5. Urinalysis is negative for blood, white cells, and has no evidence of UTI. CT scan of the abdomen and pelvis without intravenous contrast (axial sections with sagittal and coronal reformats) August 19, 2024 at 0209 hours Findings: Clear lung bases. Moderate cardiomegaly. Coronary atherosclerosis is noted. Liver, gallbladder , spleen, adrenal glands, pancreas unremarkable. Nonspecific 2.5 cm right renal cyst or nodule measuring 33 Hounsfield units, image 103. No ureteral stone or obstruction. The appendix is normal, best seen on image 105. No urinary tract stone or obstruction is identified. Aortic atherosclerosis without aneurysm. Bowel caliber is normal. The abdominal wall is unremarkable. Chronic L5 spondylolysis. No acute osseous process. No urinary tract stone or obstruction is identified. Impression: A 2.5 cm right renal cyst or nodule. Recommend follow-up. Medications / Prescriptions Medications or Prescriptions considered but not ordered:: respectively noneokay Medication administrations:: Medication Administration History Discontinued Medications Acetaminophen (Acetaminophen 500 Mg Tablet) 1,000 mg PO X1 ONE Stop: 08/19/24 01:16 Last Admin: 08/19/24 01:23 Dose: 1,000 mg Documented By: TAMMY Ketorolac Tromethamine (Ketorolac Inj 60 Mg/2 Ml Vial) 30 mg IM X1 ONE Stop: 08/19/24 01:16 Last Admin: 08/19/24 01:24 Dose: 30 mg Documented By: TAMMY As above Consultations Consultation(s) initiated? (list below): No Diagnosis Differential diagnosis abdominal pain: abdominal pain, calculus of kidney, constipation, diverticulitis, gastroenteritis, pancreatitis and small bowel obstruction Most likely diagnosis given after review of the tests above:: History of constipation, left flank pain Admission Indicated Admission indicated?: not indicated Admission Request Was there a request for admission?: No Disposition Plan Disposition Plan: Discharge Discharge Attestation Discharge Attestation: The patient and all family members were given an opportunity to ask questions and understood the discharge instructions. Discharge instructions specifically effects, indications for sooner follow up or return to the emergency department, and the expected course of current diagnosis. Patient condition: Stable Discharge Plan Plan Patient Disposition: HOME (Self Care) Patient condition on transfer: Stable Prescriptions/Referrals Prescriptions/Med Rec: No Action dicyclomine 20 mg tablet 20 mg PO BID Qty: 20 0RF docusate sodium 250 mg capsule 250 mg PO QDAY Qty: 20 0RF Referrals: Clemente Gavin MD [Primary Care Provider] - In 1 week Problem List Clinical Impression: Low back pain Patient/Caregiver Discharge Instructions Education Materials: ED Back Pain (Acute or Chronic), ED Constipation (Adult) Additional Instructions: General Adult Discharge Instructions DISCHARGE INSTRUCTIONS Even though you have been discharged from the Emergency Department, there are several things that you should do to ensure that you receive proper care: 1. DO READ your discharge instructions as these contain important information concerning your medical care. 2. If medication has been prescribed for your condition, fill the prescription as soon as possible and follow the directions on the medication. 3. RETURN AT ONCE TO THE EMERGENCY DEPARTMENT if you have any problems or concerns. These include but are not limited to fever, worsening pain(belly, chest, head, etc?), worsening shortness of breath, uncontrollable bleeding, inability to tolerate food and water, or any condition that makes you question your well-being. Also, if your symptoms do not improve in the next 12-24 hours, return to the ER or seek medical care immediately. 4. Be sure to follow up with your regular physician or specialist as instructed at discharge as this is the best way to ensure that you receive the very best of care. If you do not have a primary care physician, please contact a physician group and make an appointment. 5. Please visit [email or web address] for coupons regarding your prescriptions. It is a free service for you to use and can help reduce the cost of your medication. We would like to thank you for coming today and our hope is that we served you and your family well during your stay Print Language: Sri Lankan Stand Alone Forms: Sherrie Award Info., Patient Portal Info Letter
--- NOTE | 2024-08-19 02:23 | PD.EDABDPN ---
ED Abdominal Pain RME/HPI General Chief Complaint: Abdominal Pain Stated complaint: LEFT FLANK PAIN Time seen by provider: 08/19/24 00:53 Arrival date/time: 08/19/24 00:42 Source: patient and family (Son reports flank pain and was called to pick patient up) Mode of arrival: ambulatory Limitations: no limitations RME / HPI RME / HPI narrative: sudden onset of left flank pain since 1999 last night. No vomiting or hematuria. DR. COLEMAN MAIN ED EVALUATION: 69 y/o male with Hx of Hypertension, presents to ED BIB son c/o left flank pain x 12:30 AM. Son reports patient called him this morning c/o left kidney pain . Son states patient could vomit, but is unsure if patient is experiencing any constipation. Patient lives alone, still drives, and is coherent during the day. Patient recently saw Dr. Gavin who believes patient may have early onset dementia. She has prescribed patient a water pill due to lower extremity swelling and is referring patient to Dr. Woodrow Carty for CHF evaluation. Patent sees Dr. Scott for benign prostatic hypertrophy with urinary obstruction and urinary infections. Pending Cystoscopy and MRI. Patient is taking LASIX and Tamsulosin. -P MHx: Hypertension, benign prostatic hypertrophy with urinary obstruction and urinary infections -P Social Hx: Patient reports left flank pain. Son unsure if experiencing constipation or any other associated symptoms or aggravating factors. No modifying factors, no radiation, no migration. PMHx: Hypertension, benign prostatic hypertrophy with urinary obstruction and urinary infections Medications: Tamsulosin, LASIX Social history: PCP: Dr. Miller Related Data Previous Rx's ?Medication ?Instructions ?Recorded dicyclomine 20 mg tablet 20 mg PO BID #20 tabs 02/05/24 docusate sodium 250 mg capsule 250 mg PO QDAY #20 caps 02/05/24 Allergies Allergy/AdvReac Type Severity Reaction Status Date / Time No Known Allergies Allergy Verified 08/13/24 13:12 Review of Systems Review of Systems Systems Reviewed: All systems reviewed, normal except as documented Narrative Review of Systems: Gen: No fever, no chills, no weight loss PULM: No shortness of breath, no cough, no congestion CV: No chest pain, no dyspnea on exertion, no palpitations GI: Nausea : No frequency, no urgency, no dysuria Neuro: No weakness, no headache Past Medical History Past Medical History CARDIAC: Positive Cardiac Disorders and Hypertension OTHER HISTORY: Positive Measles ED Exam Narrative Physical exam: GENERAL: In general the patient is awake, interactive, in an emergency department gurney. HEAD/EYES/EARS/NOSE/THROAT: normo-cephalic, atraumatic, mucus membranes are moist. No cervical tenderness palpation midline. Supple neck. CARDIOVASCULAR: regular rate and regular rhythm, no murmurs, heart sounds are not distant, strong pulses in all four extremities that are equal and symmetric bilateral upper and lower extremities, normal capillary refill. CHEST/PULMONARY: normal chest rise and fall, good air movement, clear to auscultation bilaterally, normal inspiratory to expiratory ratios without evidence of respiratory distress. ABDOMEN: soft, not tender, no masses appreciated BACK: normal range of motion without pain. NEUROLOGICAL: cranio-facial features are symmetric, moves all four extremities equally without obvious limitations or weakness. EXTREMITY: no tenderness to palpation over the long bones or large joints of the bilateral upper and lower extremities, no joint swelling, no joint erythema, no signs of trauma, no unilateral leg swelling and no peripheral edema. SKIN: warm, dry, well-perfused, no jaundice, no rash, no telangiectasias or petechia. PSYCH: calm, cooperative, no evidence of psychosis or agitation General Limitations: Present no limitations Course Quality Measures none Orders Category Date Time Status Insert IV NOW Care 08/19/24 02:[address] abdomen pelvis wo con Stat Exams 08/19/24 01:13 Taken CXRP [XR chest 1V portable] Stat Exams 08/19/24 02:11 Taken CBC Stat Lab 08/19/24 01:59 Completed CMP [Comprehensive Metabolic Panel] Stat Lab 08/19/24 01:59 Completed Lipase Stat Lab 08/19/24 01:59 Completed UA [Urinalysis] Stat Lab 08/19/24 02:04 Completed Acetaminophen Tab [Tylenol ES Tab] Med 08/19/24 01:15 Discontinued 1,000 mg PO X1 ONE Ibuprofen Tab [Motrin Tab] Med 08/19/24 06:00 Discontinued 600 mg PO X1 ONE Ketorolac Inj [Toradol Inj] Med 08/19/24 01:15 Discontinued 30 mg IM X1 ONE Vital Signs Vital signs: Vital Signs Temperature 97.5 F 08/19/24 00:49 Pulse Rate 78 08/19/24 00:49 Respiratory Rate 20 08/19/24 00:49 Blood Pressure 135/81 H 08/19/24 00:49 Pulse Oximetry (%) 97 08/19/24 00:49 Oxygen Delivery Method Room Air 08/19/24 00:49 Abdominal Pain MDM MDM Narrative MDM Narrative:: Scribe Attestation: Katherine Esparza, am scribing for and in the presence of Dr. Douglas. Provider Notation: Although this document has been carefully reviewed, there may still be some phonetic and other typographical errors. These errors are purely grammatical due to imperfections in the software program and should not be construed in any way to compromise the substance of the patient's medical care during this visit. 55 y/o male with Hx of Hypertension, benign prostatic hypertrophy with urinary obstruction and urinary infections presents to ED c/o sudden, intermittent tight chest pain s/p methamphetamine use. EDC: DDX: See below Patient data External records reviewed:: [facility] previous records (Prior ED records reviewed from 05/10/24. Patient was seen for Constipation.) Clinical information provided by:: patient and family (Son: patient called him this morning c/o left kidney pain . Son states patient could vomit, but is unsure if patient is experiencing any constipation.) Social determinants that could affect healthcare access:: none Patient has the following chronic illnesses:: Hypertension, benign prostatic hypertrophy with urinary obstruction and urinary infections How is presenting disease/condition affected by chronic disease/condition?: exacerbated by Evaluation data The following diagnostics were reviewed and interpreted by me:: lab results and radiology exam(s) Lab and/or radiology exams considered but not ordered:: None Interpretation Summary: Chest X-Ray: Abdomino/Pelvic CT: Medications / Prescriptions Medications or Prescriptions considered but not ordered:: None Medication administrations:: Medication Administration History Discontinued Medications Acetaminophen (Acetaminophen 500 Mg Tablet) 1,000 mg PO X1 ONE Stop: 08/19/24 01:16 Last Admin: 08/19/24 01:23 Dose: 1,000 mg Documented By: TAMMY Ibuprofen (Ibuprofen Tab 600 Mg Tablet) 600 mg PO X1 ONE Stop: 08/19/24 06:01 Ketorolac Tromethamine (Ketorolac Inj 60 Mg/2 Ml Vial) 30 mg IM X1 ONE Stop: 08/19/24 01:16 Last Admin: 08/19/24 01:24 Dose: 30 mg Documented By: TAMMY See above Consultations Consultation(s) initiated? (list below): No Diagnosis Differential diagnosis abdominal pain: abdominal pain, calculus of kidney, constipation and small bowel obstruction Most likely diagnosis given after review of the tests above:: Low back pain Admission Indicated Admission indicated?: not indicated Explain why admission is indicated or not indicated:: No significant findings indicative of admission at this time. Admission Request Was there a request for admission?: No Disposition Plan Disposition Plan: Discharge Discharge Attestation Discharge Attestation: The patient and all family members were given an opportunity to ask questions and understood the discharge instructions. Discharge instructions specifically effects, indications for sooner follow up or return to the emergency department, and the expected course of current diagnosis. Patient condition: Stable Discharge Plan Plan Patient Disposition: HOME (Self Care) Patient condition on transfer: Stable Prescriptions/Referrals Prescriptions/Med Rec: No Action dicyclomine 20 mg tablet 20 mg PO BID Qty: 20 0RF docusate sodium 250 mg capsule 250 mg PO QDAY Qty: 20 0RF Referrals: Clemente Gavin MD [Primary Care Provider] - In 1 week Problem List Clinical Impression: Low back pain Patient/Caregiver Discharge Instructions Education Materials: ED Back Pain (Acute or Chronic), ED Constipation (Adult) Additional Instructions: General Adult Discharge Instructions DISCHARGE INSTRUCTIONS Even though you have been discharged from the Emergency Department, there are several things that you should do to ensure that you receive proper care: 1. DO READ your discharge instructions as these contain important information concerning your medical care. 2. If medication has been prescribed for your condition, fill the prescription as soon as possible and follow the directions on the medication. 3. RETURN AT ONCE TO THE EMERGENCY DEPARTMENT if you have any problems or concerns. These include but are not limited to fever, worsening pain(belly, chest, head, etc?), worsening shortness of breath, uncontrollable bleeding, inability to tolerate food and water, or any condition that makes you question your well-being. Also, if your symptoms do not improve in the next 12-24 hours, return to the ER or seek medical care immediately. 4. Be sure to follow up with your regular physician or specialist as instructed at discharge as this is the best way to ensure that you receive the very best of care. If you do not have a primary care physician, please contact a physician group and make an appointment. 5. Please visit [employer] for coupons regarding your prescriptions. It is a free service for you to use and can help reduce the cost of your medication. We would like to thank you for coming today and our hope is that we served you and your family well during your stay Print Language: Azerbaijani Stand Alone Forms: Sherrie Award Info., Patient Portal Info Letter
[2024-08-19 02:33] LABS: Alanine Aminotransferase 13 U/L (10-49); Albumin, Serum 4.7 gm/dL (3.4-4.8); Albumin/Globulin Ratio 1.8 (1.2-2.2); Alkaline Phosphatase 60 U/L (46-116); Anion Gap 7 (7-16); Aspartate Amino Transferase 16 U/L (0-34); BUN/Creatinine Ratio 15 Ratio (12-20); Bilirubin,Total 1.7 mg/dL (0.3-1.2); Blood Urea Nitrogen 23 mg/dL (9-23); Calcium 9.5 mg/dL (8.3-10.6); Calcium (Corrected) 9.5 mg/dL (8.5-10.1); Carbon Dioxide 28.1 mMol/L (20.0-31.0); Chloride 99 mMol/L (98-107); Creatinine (Component) 1.5 mg/dL (0.6-1.3); Estimated Creatinine Clearance 53.3 mL/min (>60); Globulin 2.6 gm/dL (2.3-3.5); Glucose 101 mg/dL (74-106); Lipase 87 U/L (12-53); Osmolality,Calculated 271 (275-295); Potassium 4.4 mMol/L (3.4-5.1); Sodium 134 mMol/L (136-145); Total Protein 7.3 gm/dL (5.7-8.2); eGFR 50 See Note
--- NOTE | 2024-08-19 02:44 | PRELIM_ITS ---
CT scan of the abdomen and pelvis without intravenous contrast (axial sections with sagittal and coronal reformats) August 19, 2024 at 0209 hours Clinical History: Left flank pain. Technique: Axial images with coronal and sagittal reconstructions. Comparison: None. Findings: Clear lung bases. Moderate cardiomegaly. Coronary atherosclerosis is noted. Liver, gallbladder , spleen, adrenal glands, pancreas unremarkable. Nonspecific 2.5 cm right renal cyst or nodule measuring 33 Hounsfield units, image 103. No ureteral stone or obstruction. The appendix is normal, best seen on image 105. No urinary tract stone or obstruction is identified. Aortic atherosclerosis without aneurysm. Bowel caliber is normal. The abdominal wall is unremarkable. Chronic L5 spondylolysis. No acute osseous process. No urinary tract stone or obstruction is identified. Impression: A 2.5 cm right renal cyst or nodule. Recommend follow-up. Report Electronically Signed By: Raymundo Liang 08/19/2024 2:44:00 AM [EST]
[2024-08-19 04:20] VITALS: BP 118/76; PULSE 64; RESP 16; TEMP 36.9; O2SAT 97
== END 2024-08-19 06:13 | disposition home or self-care (01) ==
PROVIDERS: Physician Assistant; Emergency Provider Emergency Medicine; PCP Internal Medicine
DX: M54.50 Low back pain, unspecified (principal); R10.12 Left upper quadrant pain; I10 Essential (primary) hypertension; R07.9 Chest pain, unspecified
CPT/HCPCS: 36415; 71045; 74176; 80053; 81001; 83690; 85025; 96372; 99284; J1885; A9270

== ENCOUNTER → 2024-09-06 | Outpatient (BNVA) | payer OTHER, SELFPAY | END | disposition home or self-care (01) | PROVIDERS: PCP Internal Medicine; Referring Provider Internal Medicine; Visit Provider Urology | DX: N40.1 Benign prostatic hyperplasia with lower urinary tract symptoms (principal); R39.12 Poor urinary stream; I10 Essential (primary) hypertension | CPT/HCPCS: 51741; 51798 ==

== ENCOUNTER → 2024-09-21 | Outpatient (BNVA) | payer OTHER, SELFPAY | END | disposition home or self-care (01) | PROVIDERS: PCP Internal Medicine; Referring Provider Internal Medicine; Visit Provider Urology | DX: N32.89 Other specified disorders of bladder (principal); N28.89 Other specified disorders of kidney and ureter; N40.1 Benign prostatic hyperplasia with lower urinary tract symptoms; N13.8 Other obstructive and reflux uropathy; I12.9 Hypertensive chronic kidney disease with stage 1 through stage 4 chronic kidney disease, or unspecified chronic kidney disease; N18.9 Chronic kidney disease, unspecified | CPT/HCPCS: 52000; 81003; 96372; A4217; A4649; C1894; J1580; A9270 ==

== ENCOUNTER → 2024-09-28 | Outpatient (CLI) | payer OTHER, SELFPAY ==
[2024-09-28 08:13] LABS: Collection Type, Urine Clean Catch
[2024-09-28 08:40] LABS: Basophils % (Auto) 1 % (0-2.5); Eosinophils % (Auto) 1 % (0-10); Hematocrit 46.5 % (41.0-53.0); Hemoglobin 15.7 g/dL (13.5-16.0); Immature Granulocytes % (Auto) 1 % (0-0); Immature Granulocytes Auto 0.02 Thou/mm3 (0.00-0.00); Lymphocytes # (Auto) 1.1 Thou/mm3 (1.0-4.8); Lymphocytes % (Auto) 24 % (10-50); Mean Corpuscular HGB Conc 33.8 g/dl (31.0-37.0); Mean Corpuscular Hemoglobin 30.3 pg (25.0-35.0); Mean Corpuscular Volume 90 fL (80-100); Monocytes # (Auto) 0.4 Thou/mm3 (0.0-0.8); Monocytes % (Auto) 10 % (0-12); Neutrophils # (Auto) 2.8 Thou/mm3 (1.8-7.7); Neutrophils % (Auto) 64 % (37-80); Nucleated Red Blood Cell % 0 /100 WBC (0); Platelet Count 340 Thou/mm3 (140-440); RDW Standard Deviation 48.2 fL (35.1-43.9); Red Blood Count 5.18 Miln/mm3 (4.50-5.90); White Blood Count 4.4 Thou/mm3 (3.8-10.6)
[2024-09-28 08:40] LABS: Bilirubin,Urine Negative (Negative); Blood,Urine Negative (Negative); Clarity,Urine Clear (Clear/Hazy); Color,Urine Lt-Yellow (Lt Yel-Yel); Glucose, Urine Negative (Negative); Hyaline Casts,Urine < 1 /hpf (0-1); Ketones,Urine Negative (Negative); Leukocyte Esterase,Urine Negative (Negative); Nitrite,Urine Negative (Negative); PH,Urine 5.5 (5.0-7.0); Protein,Urine Negative (Neg - Trace); RBC,Urine 1 /hpf (0-3); Specific Gravity,Urine 1.019 (1.001-1.035); Squamous Epithelial Cell,Urine 1 /hpf (0-5); Urobilinogen,Urine Negative mg/dL (0.0-1.0); WBC,Urine 1 /hpf (0-5)
[2024-09-28 08:47] LABS: Glucose Estimated Average 114 mg/dL (80-131); Hemoglobin A1C 5.6 % Hgb (4.8-6.0); Parathyroid Hormone Intact 102.4 pg/ml (18.5-88.0)
[2024-09-28 08:48] LABS: Creatinine MALB Rnd Ur 103 mg/dL (30-125); Microalbumin Creat Ratio 35 mg/gCrea (<30); Microalbumin, Random Urine 36 mg/L (0-300)
[2024-09-28 08:49] LABS: Prostate Specific Antigen 0.76 ng/mL (0-4.00)
[2024-09-28 08:55] LABS: Alanine Aminotransferase 18 U/L (10-49); Albumin, Serum 4.2 gm/dL (3.4-4.8); Alkaline Phosphatase 49 U/L (46-116); Anion Gap 11 (7-16); Aspartate Amino Transferase 19 U/L (0-34); BUN/Creatinine Ratio 20 Ratio (12-20); Bilirubin,Total 0.8 mg/dL (0.3-1.2); Blood Urea Nitrogen 30 mg/dL (9-23); Calcium 8.9 mg/dL (8.3-10.6); Calcium (Corrected) 8.9 mg/dL (8.5-10.1); Carbon Dioxide 25.9 mMol/L (20.0-31.0); Cardiac Risk Estimate 3.4 RATIO (4.0-6.7); Chloride 101 mMol/L (98-107); Cholesterol 174 mg/dL (132-200); Creatinine (Component) 1.5 mg/dL (0.6-1.3); Globulin 2.1 gm/dL (2.3-3.5); Glucose 111 mg/dL (74-106); HDL Cholesterol 51 mg/dL (40-60); LDL Cholesterol,Calculated 91 mg/dL (0-130); Osmolality,Calculated 282 (275-295); Potassium 4.5 mMol/L (3.4-5.1); Sodium 138 mMol/L (136-145); Total Protein 6.3 gm/dL (5.7-8.2); Triglycerides 160 mg/dL (30-150); Uric Acid 8.6 mg/dL (3.7-9.2); eGFR 50 See Note
[2024-09-28 08:57] LABS: Vitamin B12 694 pg/mL (211-911); Vitamin D 25 Hydroxy Total 23.3 ng/mL (7.3-40.2)
== END | disposition home or self-care (01) ==
PROVIDERS: PCP Internal Medicine; Referring Provider Internal Medicine; Visit Provider Internal Medicine
DX: D51.9 Vitamin B12 deficiency anemia, unspecified (principal); E55.9 Vitamin D deficiency, unspecified; E78.5 Hyperlipidemia, unspecified; N18.31 Chronic kidney disease, stage 3a; Z00.00 Encounter for general adult medical examination without abnormal findings; E11.22 Type 2 diabetes mellitus with diabetic chronic kidney disease; I12.9 Hypertensive chronic kidney disease with stage 1 through stage 4 chronic kidney disease, or unspecified chronic kidney disease
CPT/HCPCS: 36415; 80053; 80061; 81001; 82043; 82306; 82570; 82607; 83036; 83970; 84153; 84550; 85025

== ENCOUNTER 2024-10-07 15:25 | Observation (INO) | payer OTHER, SELFPAY ==
--- NOTE | 2024-10-07 15:27 | EKG_ITS ---
[facility] Test Date: 2024-10-07 Pat Name: JUNIOR HUBBARD Department: Room: - Gender: Male Trauma Surgeon: : 1955 Requested By: ED Temporary Provider Order Number: [id number] Reading MD: ED Temporary Provider Measurements Intervals [place] Rate: 86 P: DE: QRS: -24 QRSD: 117 T: 140 QT: 380 QTc: 456 Interpretive Statements ATRIAL FIBRILLATION BORDERLINE LEFT AXIS DEVIATION [QRS AXIS < -20] MODERATE INTRAVENTRICULAR CONDUCTION DELAY [110+ ms QRS DURATION] ST DEVIATION AND MODERATE T-WAVE ABNORMALITY, CONSIDER LATERAL ISCHEMIA [-0.1+ mV T-WAVE IN I/aVL/V5/V6] No previous ECG available for comparison /store/S0/[id number]/ecg/[id number].pdf
[2024-10-07 15:30] VITALS: BP 138/81; PULSE 89; RESP 20; TEMP 36.4; O2SAT 96; BMI 32.0
--- NOTE | 2024-10-07 15:35 | XR_ITS ---
Examination: PA lateral chest 2 views TECHNIQUE: Upright PA and lateral chest 2 views Date and time: October 07, 2024 at 1542 hours Comparison August 19, 2024 INDICATIONS: Onset chest pain today. FINDINGS: Mild prominence left ventricle Moderate vascular congestion. No caren pulmonary edema. No lobar pneumonia Old right-sided rib fractures IMPRESSION: Moderate vascular congestion
--- NOTE | 2024-10-07 15:59 | PD.EDCHEST ---
ED Chest Pain RME/HPI General Chief Complaint: Chest Pain Stated Complaint: CHEST PAIN Time Seen by Provider: 10/07/24 15:29 Arrival date/time: 10/07/24 15:25 RME / HPI RME / HPI narrative: Patient brought in today by his son. He has had some left arm pain this morning. He developed left-sided anterior chest pain 50 minutes prior to his arrival. He describes it as a burning sensation. Denies any shortness of breath or cough. He has no new lower leg edema although he states he has a history of CHF and a remote history of DVT. He states he was recently seen by his assistant producer and duplex scans of his bilateral legs were performed within the last 1 or 2 weeks and there is no evidence of thrombus. Related Data Previous Rx's ?Medication ?Instructions ?Recorded dicyclomine 20 mg tablet 20 mg PO BID #20 tabs 02/05/24 docusate sodium 250 mg capsule 250 mg PO QDAY #20 caps 02/05/24 Allergies Allergy/AdvReac Type Severity Reaction Status Date / Time No Known Allergies Allergy Verified 09/21/24 10:18 Course Quality Measures none Orders Category Date Time Status Bedside COVID-19 Antigen Test NOW Care 10/07/24 18:06 Active COVID-19 Screening Questionnaire NOW Care 10/07/24 18:[address] Screening NOW Care 10/07/24 16:[address] Screening X1 Care 10/07/24 16:02 Completed Ammonia Nitrate Operator NOW Care 10/07/24 15:35 Active Decision to Admit X1 Care 10/07/24 18:02 Completed EKG (ED ONLY) *Do not use* NOW Care 10/07/24 15:27 Completed Consult to Cardiology Stat Cons 10/07/24 17:[address] angio chest Stat Exams 10/07/24 16:02 Completed EKG (ED Only) Stat Exams 10/07/24 15:27 Draft XR chest 2V Stat Exams 10/07/24 15:35 Completed B-Type Natriuretic Peptide Stat Lab 10/07/24 15:58 Completed CBC Stat Lab 10/07/24 15:58 Completed Comprehensive Metabolic Panel Stat Lab 10/07/24 15:58 Completed Drug Screen,Urine Stat Lab 10/07/24 16:17 Completed LDH (Lactate Dehydrogenase) Stat Lab 10/07/24 15:58 Completed Lipase Stat Lab 10/07/24 15:58 Completed Mag [Magnesium] Stat Lab 10/07/24 18:37 Ordered Magnesium Stat Lab 10/07/24 15:58 Completed Partial Thromboplastin Time Stat Lab 10/07/24 15:58 Completed Phosphorous Stat Lab 10/07/24 18:37 Ordered Prothrombin Time with INR Stat Lab 10/07/24 15:58 Completed TSH [Thyroid Stimulating Hormone] Stat Lab 10/07/24 18:37 Ordered Troponin I Routine Lab 10/07/24 18:04 Completed Troponin I Routine Lab 10/07/24 20:00 Ordered Troponin I Stat Lab 10/07/24 15:58 Completed Troponin I Stat Lab 10/07/24 17:07 Completed Urinalysis Stat Lab 10/07/24 16:17 Completed Aspirin Med 10/07/24 16:54 Discontinued 325 mg PO X1 ONE Vital Signs Vital signs: Vital Signs Temperature 97.5 F 10/07/24 15:30 Pulse Rate 89 10/07/24 15:30 Respiratory Rate 20 10/07/24 15:30 Blood Pressure 138/81 H 10/07/24 15:30 Pulse Oximetry (%) 96 10/07/24 15:30 Oxygen Delivery Method Room Air 10/07/24 15:30 Chest Pain MDM Narrative MDM Narrative:: Patient reassessed at 1650 4 PM. He has no active chest pain. His CTA is pending. At approximately 1730 5 PM, reviewed his CT report, there is no evidence of pulmonary emboli. There is a 4 cm, descending aneurysm. Cardiology was paged and case discussed with Dr. Troy. Dr. Troy has performed outpatient duplex studies of the lower legs which were negative for DVT. Dr. Troy also reports he performed an echo within the last 2 weeks the patient had mitral valve regurgitation with a EF of 45%. Patient was in sinus rhythm at that time. Patient has new onset A-fib, will admit to Dr. Miller.. Cardiology to follow. Dr. Hinkle is paged. Discussed with Dr. Vee. Took call from Dr. Miller at 18:30, case discussed and she will admit. Patient data External records reviewed:: [facility] previous records Clinical information provided by:: patient and family Social determinants that could affect healthcare access:: none Patient has the following chronic illnesses:: CHF How is presenting disease/condition affected by chronic disease/condition?: uneffected by Evaluation data The following diagnostics were reviewed and interpreted by me:: lab results, radiology exam(s) and EKG tracing(s) (EKG obtained today at 1530 4 PM reveals atrial fibrillation at 86 bpm. There are no dynamic T waves.) Lab and/or radiology exams considered but not ordered:: n/a Interpretation Summary: Patient has no leukocytosis, metabolic panel is essentially unremarkable. He has hyperglycemia at 142. He does have elevated creatinine at 1.7, however his baseline is 1.5. Lactic is marginally elevated to 86 troponin is negative. BNP is 764. CT reveals no pulmonary emboli. Radiologist mentions a 4 similar dilation of the descending aorta consistent with aneurysm. Medications / Prescriptions Medications or Prescriptions considered but not ordered:: Matias Arauz Medication administrations:: Medication Administration History Discontinued Medications Aspirin (Aspirin 325 Mg Tablet) 325 mg PO X1 ONE Stop: 10/07/24 16:55 Last Admin: 10/07/24 17:10 Dose: 325 mg Documented By: FC see above Consultations Consultation(s) initiated? (list below): Yes Diagnosis Chest Pain Differential Diagnosis: pneumothorax, unstable angina pectoris, atypical chest pain and st elevation myocardial infarction Most likely diagnosis given after review of the tests above:: new onset a-fib Admission Indicated Admission indicated?: indicated Admission Request Was there a request for admission?: Yes Admission Attestation Admission request attestation: Discussed case with [] from Hospitalist service regarding admission. Discussed patients ED course, exam findings, labs, and radiology results. The Hospitalist [agrees,declines] to accept the patient for admission. Disposition Plan Disposition Plan: Admit Discharge Plan Plan Patient Disposition: Admit Acute Care w/in Hospital Patient condition on transfer: Stable Prescriptions/Referrals Prescriptions/Med Rec: No Action dicyclomine 20 mg tablet 20 mg PO BID Qty: 20 0RF docusate sodium 250 mg capsule 250 mg PO QDAY Qty: 20 0RF Referrals: Clemente Gavin MD [Primary Care Provider] - In 1 week Problem List Clinical Impression: Chest pain, Atrial fibrillation, Aneurysm of thoracic aorta Patient/Caregiver Discharge Instructions Print Language: Salvadorean Stand Alone Forms: Sherrie Award Info., Patient Portal Info Letter
[2024-10-07 16:01] VITALS: PULSE 98
--- NOTE | 2024-10-07 16:02 | XR_ITS ---
Examination: CTA chest with intravenous contrast 2-D reconstructions 3-D reconstructions, vascular Date and time of exam: October 07, 2024 at 1646 hours INDICATIONS: New onset atrial fibrillation chest pain today, history DVT CTDI: vol (mGy) 38 DLP: (mGycm) 548 Technique: Multiple axial sections of the thorax have been obtained. 3 mm slice thickness, from below the hemidiaphragms to above the apices of the lungs. Mediastinal and lung density settings have been obtained. 2-D sagittal and coronal reconstructions. 3-D angiographic renderings, 3-D volume renderings, 3D post processing, vascular maximum intensity projections obtained. Contrast administered is 80 cc Isovue 300. Low dose protocols were performed. One or more of the following dose reduction techniques were used; automated exposure control, adjustment of the mA and/or KV according to patient size, use of iterative reconstruction technique. Findings: Mild aneurysmal dilatation ascending thoracic aorta AP dimension 4.0 cm No pulmonary artery filling defects Moderate vascular congestion No caren pulmonary edema No lobar pneumonia Multiple posterior old right-sided rib fractures The liver is irregular in contour and no focal liver lesions Splenomegaly AP dimension 15 cm Suspicious for splenic lesion, axial image 132, measuring 4.9 cm Contracted gallbladder Perinephric stranding Prominent thoracic spondylosis IMPRESSION: Mild aneurysmal dilatation ascending thoracic aorta Negative for pulmonary artery emboli Moderate vascular congestion Primary hepatocellular disease Moderate splenomegaly, suspicious for portal 0.9 cm solid splenic lesion, recommend hepatobiliary sonography follow-up
[2024-10-07 16:10] LABS: Basophils % (Auto) 1 % (0-2.5); Eosinophils # (Auto) 0.1 Thou/mm3 (0.0-0.5); Eosinophils % (Auto) 1 % (0-10); Hematocrit 44.5 % (41.0-53.0); Hemoglobin 15.1 g/dL (13.5-16.0); Immature Granulocytes % (Auto) 1 % (0-0); Immature Granulocytes Auto 0.03 Thou/mm3 (0.00-0.00); Lymphocytes # (Auto) 1.3 Thou/mm3 (1.0-4.8); Lymphocytes % (Auto) 20 % (10-50); Mean Corpuscular HGB Conc 33.9 g/dl (31.0-37.0); Mean Corpuscular Hemoglobin 29.6 pg (25.0-35.0); Mean Corpuscular Volume 87 fL (80-100); Monocytes # (Auto) 0.6 Thou/mm3 (0.0-0.8); Monocytes % (Auto) 10 % (0-12); Neutrophils # (Auto) 4.3 Thou/mm3 (1.8-7.7); Neutrophils % (Auto) 68 % (37-80); Nucleated Red Blood Cell % 0 /100 WBC (0); Platelet Count 337 Thou/mm3 (140-440); RDW Standard Deviation 45.1 fL (35.1-43.9); White Blood Count 6.4 Thou/mm3 (3.8-10.6)
[2024-10-07 16:23] LABS: Collection Type, Urine Clean Catch; Squamous Epithelial Cell,Urine 0 /hpf (0-5); WBC,Urine 0 /hpf (0-5)
[2024-10-07 16:25] LABS: INR 1.1 (0.9-1.3); Partial Thromboplastin Time 33.3 Seconds (22.0-36.0)
[2024-10-07 16:30] LABS: Alanine Aminotransferase 16 U/L (10-49); Albumin, Serum 4.3 gm/dL (3.4-4.8); Albumin/Globulin Ratio 1.7 (1.2-2.2); Alkaline Phosphatase 65 U/L (46-116); Anion Gap 10 (7-16); Aspartate Amino Transferase 18 U/L (0-34); BUN/Creatinine Ratio 17 Ratio (12-20); Bilirubin,Total 0.8 mg/dL (0.3-1.2); Blood Urea Nitrogen 29 mg/dL (9-23); Calcium 9.2 mg/dL (8.3-10.6); Calcium (Corrected) 9.2 mg/dL (8.5-10.1); Carbon Dioxide 28.1 mMol/L (20.0-31.0); Chloride 100 mMol/L (98-107); Creatinine (Component) 1.7 mg/dL (0.6-1.3); Estimated Creatinine Clearance 48.9 mL/min (>60); Globulin 2.5 gm/dL (2.3-3.5); Glucose 142 mg/dL (74-106); LDH (Lactate Dehydrogenase) 286 U/L (120-246); Lipase 63 U/L (12-53); Magnesium 2.4 mg/dL (1.6-2.6); Osmolality,Calculated 283 (275-295); Potassium 4.1 mMol/L (3.4-5.1); Sodium 138 mMol/L (136-145); Total Protein 6.8 gm/dL (5.7-8.2); Troponin I 0.031 ng/mL (0.0-0.045); eGFR 43 See Note
[2024-10-07 17:10] LABS: Amorphous Crystals,Urine Present (Absent); Bilirubin,Urine Negative (Negative); Blood,Urine Negative (Negative); Clarity,Urine Turbid (Clear/Hazy); Color,Urine Yellow (Lt Yel-Yel); Glucose, Urine Trace (Negative); Ketones,Urine Negative (Negative); Leukocyte Esterase,Urine Negative (Negative); Nitrite,Urine Negative (Negative); PH,Urine 7.5 (5.0-7.0); Protein,Urine 1+ (Neg - Trace); RBC,Urine 2 /hpf (0-3); Specific Gravity,Urine 1.022 (1.001-1.035); Urobilinogen,Urine Negative mg/dL (0.0-1.0)
[2024-10-07] MEDS: Aspirin 325 MG TABLET PO (17:10)
[2024-10-07 17:13] LABS: B-Type Natriuretic Peptide 764 pg/mL (0-100)
[2024-10-07 17:33] LABS: Troponin I 0.028 ng/mL (0.0-0.045)
[2024-10-07 18:11] VITALS: BP 145/91; PULSE 99; RESP 18; O2SAT 96
[2024-10-07 18:15] LABS: Amphetamine/Methamp Scrn,U Negative (Negative); Barbiturate Screen,Urine Negative (Negative); Benzodiazepines Screen,Urine Negative (Negative); Benzoylecgonine Screen, Ur Negative (Negative); Fentanyl Screen,Urine Negative (Negative); Opiate Screen,Urine Negative (Negative); THC Screen,Urine Negative (Negative)
[2024-10-07 18:21] VITALS: BP 107/77; PULSE 83; RESP 17; TEMP 36.6; O2SAT 95
[2024-10-07 18:26] LABS: Troponin I 0.029 ng/mL (0.0-0.045)
[2024-10-07] MEDS: SODIUM CHLORIDE 0.9% 1000 ML 1,000 ML 80 ML IV (18:55)
[2024-10-07 19:01] LABS: Magnesium 2.5 mg/dL (1.6-2.6); Phosphorous 3.3 mg/dL (2.4-5.1); Thyroid Stimulating Hormone 2.06 uIU/mL (0.55-4.78)
[2024-10-07 19:59] VITALS: BP 113/77; PULSE 85; RESP 17; TEMP 36.6; O2SAT 94
--- NOTE | 2024-10-07 20:14 | PD.NEPHHP ---
Documentation for date of: 10/07/24 History of Present Illness History of Present Illness Chief complaint: chest pain History of present illness: patient is a 69-year-old male past medical history of hypertension, chronic DVT right lower extremity, on Eliquis, ascending thoracic aortic aneurysm, CKD stage III, diabetes (off medications), constipation who was admitted due to chest discomfort and left arm pain. Found to have A-fib with a rapid ventricular rate on EKG, new onset. Patient was established with injection molding technician Dr. Perez who evaluated him for shortness of breath on exertion at a previous appointment, also followed him during this hospitalization, cardiac echo showed EF 45%, moderate to severe mitral regurgitation 3+. In the emergency department-CT angiogram of the chest was negative for pulmonary embolism. Patient admitted to telemetry overnight for observation and fluids as he did receive contrast in the setting of elevated creatinine. Dr. Perez saw patient-recommended to discharge tomorrow on Eliquis. No need for amiodarone. Labs, medications reviewed. Review of Systems Review of Systems Narrative Review of Systems: CONSTITUTIONAL: Patient denies any fever, chills. HEENT: Denies any visual disturbances or hearing problems. CARDIOVASCULAR: Patient denies any chest pain, shortness of breath, swelling in the lower extremities- now PULMONARY: Patient denies any shortness of breath, cough. GASTROINTESTINAL: Patient denies any abdominal pain, nausea, vomiting, diarrhea. Complaining of constipation GENITOURINARY: Patient denies any urinary symptoms of burning or frequency or hematuria, denies any form in the urine. SKIN: Denies any rash. MUSCULOSKELETAL: Denies any muscular skeletal problems of joint pains. NEUROLOGICAL: Denies any neurological problems of strokes, seizures or confusion. Denies any memory problems. PSYCHIATRIC: Denies any depression or anxiety. LYMPHATICS : No lymphadenopathy Past Medical History Past Medical History NEUROLOGIC: Negative Neurological Disorders or Seizures CARDIAC: Positive Congestive Heart Failure, Deep Vein Thrombosis and Hypertension; Negative Cardiac Disorders RESPIRATORY: Negative Chronic Obstructive Pulmonary Disease (COPD) or Asthma GASTROINTESTINAL: Positive Gastrointestinal Disorders and Obesity GENITOURINARY: Positive Renal Disease and Benign Prostatic Hyperplasia; Negative Genitourinary Disorders MUSCULOSKELETAL: Negative Musculoskeletal Disorders ENDOCRINE: Positive Diabetes Mellitus Type 2; Negative Endocrine Disorders or Diabetes Mellitus Type 1 HEMATOLOGIC: Negative Blood Disorders or Sickle Cell Disease OTHER HISTORY: Positive Measles; Negative Hospitalization, Down Syndrome, Developmental Delay, Falls, Blood Transfusions, Anesthesia Reactions or Cancer Social History SMOKING STATUS: Never smoker Meds Home Medications and Allergies Home Medications ?Medication ?Instructions ?Recorded ?Confirmed ?Type furosemide 40 mg tablet 40 mg PO DAILY 10/07/24 10/07/24 History linaclotide 290 mcg capsule 290 mcg PO DAILY 10/07/24 10/07/24 History (Linzess) tamsulosin 0.4 mg capsule 0.8 mg PO DAILY 10/07/24 10/07/24 History Allergies Allergy/AdvReac Type Severity Reaction Status Date / Time No Known Allergies Allergy Verified 09/21/24 10:18 Exam Vital Signs Temp Pulse Resp BP Pulse Ox O2 Del Method 36.6 C 85 17 113/77 94 L Room Air 10/07/24 19:59 10/07/24 19:59 10/07/24 19:59 10/07/24 19:59 10/07/24 19:59 10/07/24 19:59 Narrative Exam GENERAL APPEARANCE: Patient seems to be comfortable, adequately hydrated and nourished. HEENT: EOMI, PERRLA NECK: Neck supple, no JVD or bruit CARDIOVASCULAR: Heart regular, no murmurs LUNGS/CHEST: Chest clear to auscultation. No rales, rhonchi, wheezing ABDOMEN: Soft, nontender, nondistended. No masses. Normal bowel sounds. EXTREMITIES: No edema, clubbing or cyanosis. SKIN: Skin exam normal without any rashes MUSCULOSKELETAL: Musculoskeletal exam normal PSYCHIATRIC: Normal mood, affect LYMPHATICS: No lymphadenopathy noted NEUROLOGICAL : No neurological deficits Results: Labs 10/08/24 04:55 10/08/24 04:55 Labs: Short CBC 10/07/24 Range/Units 15:58 WBC 6.4 (3.8-10.6) Thou/mm3 Hgb 15.1 (13.5-16.0) g/dL Hct 44.5 (41.0-53.0) % Plt Count 337 (140-440) Thou/mm3 BMP 10/07/24 15:58 Sodium 138 Potassium 4.1 Chloride 100 Carbon Dioxide 28.1 BUN 29 H Creatinine 1.7 H Glucose 142 H Calcium 9.2 Cardiac Enzymes 10/07/24 10/07/24 10/07/24 Range/Units 15:58 17:07 18:04 Troponin I 0.031 0.028 0.029 (0.0-0.045) ng/mL Liver Function 10/07/24 Range/Units 15:58 Total Bilirubin 0.8 (0.3-1.2) mg/dL AST 18 (0-34) U/L ALT 16 (10-49) U/L Alkaline Phosphatase 65 (46-116) U/L Albumin 4.3 (3.4-4.8) gm/dL Urine 10/07/24 Range/Units 16:17 Urine Color Yellow (Lt Yel-Yel) Urine Clarity Turbid A (Clear/Hazy) Urine pH 7.5 H (5.0-7.0) Ur Specific [place] 1.022 (1.001-1.035) Urine Protein 1+ A (Neg - Trace) Urine Glucose (UA) Trace (Negative) Assessment & Plan Additional Assessment & Plan Additional Plan: #Atrial fibrillation with rate control-will be discharging him tomorrow on Eliquis. No need for amiodarone per Dr. Perez. 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 Will give fluids as patient received a CTA with contrast #Ascending thoracic aortic aneurysm Asymptomatic #History of chronic DVT On Eliquis #History of hypertension Patient on Lasix as needed #History of mitral regurgitation Per Dr. Perez-no need for any intervention at this point. # Diet-controlled diabetes. Patient admitted for observation. DVT prophylaxis-ambulatory GI prophylaxis-not needed Disposition Home Quality Measures Quality Measures none Advance care planning discussed with:: patient
[2024-10-07 21:00] VITALS: BP 129/85; PULSE 100; RESP 17; TEMP 36.6; O2SAT 100
[2024-10-08] VITALS: BP 122/84; PULSE 72; PULSE 74; RESP 17; TEMP 36.4; O2SAT 96
[2024-10-08 04:00] VITALS: BP 139/86; PULSE 78; PULSE 91; RESP 18; TEMP 36.4; O2SAT 97
[2024-10-08 05:50] LABS: Basophils % (Auto) 1 % (0-2.5); Eosinophils # (Auto) 0.1 Thou/mm3 (0.0-0.5); Eosinophils % (Auto) 1 % (0-10); Hematocrit 42.4 % (41.0-53.0); Hemoglobin 14.4 g/dL (13.5-16.0); Immature Granulocytes % (Auto) 1 % (0-0); Immature Granulocytes Auto 0.04 Thou/mm3 (0.00-0.00); Lymphocytes # (Auto) 1.2 Thou/mm3 (1.0-4.8); Lymphocytes % (Auto) 21 % (10-50); Mean Corpuscular Hemoglobin 29.8 pg (25.0-35.0); Mean Corpuscular Volume 88 fL (80-100); Monocytes # (Auto) 0.5 Thou/mm3 (0.0-0.8); Monocytes % (Auto) 9 % (0-12); Neutrophils % (Auto) 68 % (37-80); Nucleated Red Blood Cell % 0 /100 WBC (0); Platelet Count 316 Thou/mm3 (140-440); RDW Standard Deviation 45.6 fL (35.1-43.9); Red Blood Count 4.83 Miln/mm3 (4.50-5.90); White Blood Count 5.8 Thou/mm3 (3.8-10.6)
[2024-10-08 06:00] VITALS: BMI 32.0
[2024-10-08 06:30] LABS: Alanine Aminotransferase 14 U/L (10-49); Albumin, Serum 3.9 gm/dL (3.4-4.8); Albumin/Globulin Ratio 1.7 (1.2-2.2); Alkaline Phosphatase 57 U/L (46-116); Anion Gap 12 (7-16); Aspartate Amino Transferase 17 U/L (0-34); BUN/Creatinine Ratio 19 Ratio (12-20); Bilirubin,Total 0.8 mg/dL (0.3-1.2); Blood Urea Nitrogen 30 mg/dL (9-23); Calcium 8.7 mg/dL (8.3-10.6); Calcium (Corrected) 8.8 mg/dL (8.5-10.1); Carbon Dioxide 22.4 mMol/L (20.0-31.0); Chloride 103 mMol/L (98-107); Creatinine (Component) 1.6 mg/dL (0.6-1.3); Estimated Creatinine Clearance 51.9 mL/min (>60); Globulin 2.3 gm/dL (2.3-3.5); Glucose 170 mg/dL (74-106); Osmolality,Calculated 284 (275-295); Sodium 137 mMol/L (136-145); Total Protein 6.2 gm/dL (5.7-8.2); Troponin I 0.026 ng/mL (0.0-0.045); eGFR 46 See Note
[2024-10-08 08:00] VITALS: BP 119/86; PULSE 79; PULSE 90; RESP 17; TEMP 36.1; O2SAT 94
--- NOTE | 2024-10-08 08:47 | ESDS_ITS ---
Planned Discharge Date 10/08/24 DS: Providers Provider Date of admission: 10/07/24 18:42 Primary care physician: Clemente Gavin MD Admitting Provider: Clemente Gavin MD Attending Provider on Admission: Clemente Gavin MD Consults: 10/07/24 17:30 Consult to Cardiology Stat Comment: New onset A-fib, chest pain, Consulting Provider: Machelle Troy 10/07/24 18:43 Consult to Cardiology Stat Comment: new onset afib Consulting Provider: Machelle Troy Attending Provider on DC: Shreyas Moody MD Discharging Provider: Shreyas Moody MD DS: Diagnosis Problem List Completed Was Problem List Reviewed/Reconciled?: Yes Hospital Course Hospital Course Hospital course: The patient is a 69-year-old male past medical history of hypertension, chronic DVT right lower extremity, on Eliquis, ascending thoracic aortic aneurysm, CKD stage III, who was admitted due to chest discomfort and left arm pain. Found to have A-fib with a rapid ventricular rate on EKG, new onset. Patient was established with rehabilitation consultant Dr. Bill Troy who evaluated him for shortness of breath on exertion at a previous appointment, also followed him during this hospitalization, cardiac echo showed EF 45%, moderate to severe mitral regurgitation 3+. CT angiogram of the chest was negative for pulmonary embolism. During hospital stay, patient rate remained controlled with u nderlying rhythm atrial fibrillation/flutter. Currently rate controlled without any rate limiting medications, per cardiology recommendations continue Eliquis only, follow-up with cardiology outpatient within 1 week. Patient reported symptomatic improvement in dyspnea and chest pain. The patient is stable, ambulatory, afebrile and tolerating Per oral medications at the time of discharge. The patient understood and agreed to the treatment plan. Follow up with Primary care physician with labs within 3-5 days of discharge. Follow-up with rehabilitation consultant Dr. Bill Troy within 1 week. If symptoms persist or worsen, return to the Emergency Department. #Problems #Chest pain #Atrial fibrillation with RVR #History of CKD stage III #Ascending thoracic aortic aneurysm #History of chronic DVT #History of hypertension #History of mitral regurgitation Plan of care discussed with attending Dr. Leslye Moody PGY2 Status at Discharge Overall status at discharge: patient is progressing back to baseline Time Spent with Patient Time attestation: Total time spent providing and/or coordinating discharge services: Time spent: Greater than 30 minutes Exam Vital Signs Temp Pulse Resp BP Pulse Ox O2 Del Method 97.0 F 79 17 119/86 H 94 L Room Air 10/08/24 08:00 10/08/24 08:00 10/08/24 08:00 10/08/24 08:00 10/08/24 08:00 10/08/24 08:00 Narrative Exam General: AOx3, cooperative Skin: Intact, no cyanosis noted. 2+ pedal edema more on right lower extremity HEENT: Atraumatic/normocephalic, TOMASZ, neck supple Heart: RRR, S1 and S2 without clicks or murmurs Lungs: Clear on auscultation bilaterally, no difficulty breathing Abdomen: Soft, nontender. Bowel sounds present . Vascular: Peripheral pulses palpable Neuro: No focal neurological deficits noted. Discharge Plan Plan Patient Disposition: HOME (Self Care) Patient condition on transfer: Stable Care Plan Goals: Added new medication Eliquis 5mg twice daily, continue rest of home medications. Follow up with Primary care physician with labs within 3-5 days of discharge. Follow up with rehabilitation consultant Dr Wu within 1 week of discharge from hospital, If symptoms persist or worsen, return to the Emergency Department. Prescriptions/Referrals Prescriptions/Med Rec: New Eliquis 5 mg tablet 5 mg PO BID Qty: 60 0RF Continued tamsulosin 0.4 mg capsule 0.8 mg PO DAILY Patient Comments: TAKE 2 CAPSULES BY MOUTH EVERY DAY furosemide 40 mg tablet 40 mg PO DAILY Patient Comments: TAKE 1 TABLET BY MOUTH EVERY DAY Linzess 290 mcg capsule 290 mcg PO DAILY Referrals: Machelle Troy MD [Physician] - Clemente Gavin MD [Primary Care Provider] - Patient/Caregiver Discharge Instructions Discharge Activity: activity as tolerated Education Materials: AFL/Afib, ED Atrial Fibrillation, ED About Arrhythmias Print Language: Telugu Activity Restrictions/Additional Instructions: follow up with Dr. Troy, in 1-2 weeks Stand Alone Forms: Sherrie Award Info., Patient Portal Info Letter Discharge Order Discharge Orders: Discharge (Routine); Ordered 10/08/24 Ordered By: Clemente Gavin Quality Discharge Quality Measures VTE prophylaxis MD Attestestation MD Attestation Patient seen and examined with resident physician Dr. Moody. Note reviewed, agree with findings and recommendations. Patient will be [id number] with Dr. Perez in 1 to 2 weeks
[2024-10-08] MEDS: SODIUM CHLORIDE 0.9% 1000 ML 1,000 ML 80 ML IV (09:01)
[2024-10-08] MEDS: ENOXAPARIN SOD INJ 40 MG/0.4 ML SYRINGE SC (09:01)
[2024-10-08] MEDS: TAMSULOSIN HCL 0.4 MG CAPSULE 0.8 MG PO (09:01)
[2024-10-08 09:52] LABS: Magnesium 2.4 mg/dL (1.6-2.6)
--- NOTE | 2024-10-08 11:16 | ESCONSULT_ITS ---
RE: JUNIOR HUBBARD : 1955 DATE OF CONSULTATION: 10/07/2024 CONSULTING PHYSICIANS: Clemente Gavin MD REASON FOR CONSULTATION: Evaluation of atrial fibrillation and sharp atypical chest pain. HISTORY OF PRESENT ILLNESS: The patient is a 69-year-old pleasant male who has history of hypertension, otherwise in good health. He is doing fairly well recently. I did see him for workup in my office for a history of mild shortness of breath on exertion. Cardiac echo showed ejection fraction of 45%, and there is [id number]-ixkuua 3+ mitral regurgitation and was scheduled for a stress test this week. He was doing fairly well until today. The patient had an episode of sharp chest pain that lasted only several seconds, maybe 10 seconds, and left arm forearm discomfort that also lasted 10 seconds, went away. He was scared and came to the emergency room. The patient had a CT scan of the chest, possibly inappropriately. For now, clinical indication showed negative anyway. He does have chronic kidney disease stage III with baseline creatinine #2 and creatinine clearance of 45 to 50. The patient is hydrated now following the procedure, doing fairly well. Does not have any further chest pain or shortness of breath. The patient is found to have atrial fibrillation with rate control with 70 and 80 surprisingly with no tachycardia despite not having beta blockers. The patient is asymptomatic. No palpitations from atrial fibrillation. No chest pain anymore. ALLERGIES: NONE. MEDICATIONS: At home, please see the list, 1. Tamsulosin. 2. Linzess. 3. Furosemide 40 mg daily. PAST MEDICAL HISTORY: Hypertension, shortness of breath, was getting workup for CAD. SOCIAL HISTORY: The patient is a nonsmoker, does not drink any alcoholic beverages. FAMILY HISTORY: Noncontributory. PHYSICAL EXAMINATION: GENERAL: A well-nourished pleasant male, alert, awake, and in no acute distress. VITAL SIGNS: Stable. Blood pressure 130/80, pulse 89, respirations 20, temperature 97.5, saturation is 96% on room air. HEENT: Head is atraumatic and normocephalic. Eyes normal. ENT: Normal. NECK: Supple. No JVD. Carotid pulse felt with no bruits. CHEST: Symmetric. LUNGS: Clear. HEART: S1 and S2 regular, 2/6 systolic murmur heard at the apex. ABDOMEN: Slight distended and soft. No organomegaly. EXTREMITIES: No edema. /RECTAL: Not performed. NEUROLOGIC: Normal. DIAGNOSTIC DATA: Electrocardiogram showed atrial fibrillation, nonspecific ST changes. Cardiac enzymes, three enzymes are negative. LABORATORY DATA: Lab data shows elevated BUN and creatinine, 29 and 1.7. The rest of the labs normal. BNP was slightly elevated as well around 764. Thyroid panel, TSH is normal. IMPRESSION/ASSESSMENT: 1. New-onset atrial fibrillation. 2. Atypical chest pain, possibly noncardiac. 3. Mitral regurgitation by cardiac echo, possibly causing BNP elevation. 4. Chronic kidney disease, stage III. RECOMMENDATIONS: The patient should be observed overnight and IV fluids to begin. The patient can be discharged to home in the morning. He is scheduled for a nuclear stress test as an outpatient on Tuesday. No need for a coronary angiogram. I would like to thank for referring this patient for cardiovascular evaluation. We will be glad to follow the patient and do outpatient workup. DT: 10:00:20 TT: 11:12:00 Ref: [id number] - TID: [id number]
[2024-10-08 12:00] VITALS: BP 125/82; PULSE 80; PULSE 87; RESP 18; TEMP 36.1; O2SAT 93
[2024-10-08 12:51] LABS: Troponin I 0.026 ng/mL (0.0-0.045)
[2024-10-08 15:00] VITALS: BP 127/75; PULSE 88; RESP 19; TEMP 36.1; O2SAT 100
== END 2024-10-08 15:12 | disposition home or self-care (01) ==
LOC: SERX 17:39 → SERHOLD 19:19 → S2NX 10-08 06:33 → SERHOLD 10-08 09:17 → S2NX 10-08 09:18
PROVIDERS: Nurse Practitioner Primary Care; Physician Assistant Medical; Admitting Provider Internal Medicine; Emergency Provider Family Medicine; PCP Internal Medicine; Visit Provider Internal Medicine
DX: I48.91 Unspecified atrial fibrillation (principal); E11.22 Type 2 diabetes mellitus with diabetic chronic kidney disease; E11.65 Type 2 diabetes mellitus with hyperglycemia; Z79.01 Long term (current) use of anticoagulants; N18.30 Chronic kidney disease, stage 3 unspecified; I82.501 Chronic embolism and thrombosis of unspecified deep veins of right lower extremity; I71.21 Aneurysm of the ascending aorta, without rupture; I50.9 Heart failure, unspecified; I34.0 Nonrheumatic mitral (valve) insufficiency; I13.0 Hypertensive heart and chronic kidney disease with heart failure and stage 1 through stage 4 chronic kidney disease, or unspecified chronic kidney disease; Z01.810 Encounter for preprocedural cardiovascular examination
CPT/HCPCS: 36415; 71046; 71275; 80053; 80307; 81001; 83615; 83690; 83735; 83880; 84100; 84443; 84484; 85025; 85379; 85610; 85730; 87811; 93005; 96360; 96361; 96372; 99285; A4649; G0378; J1650; J7030; Q9967; A9270

== ENCOUNTER 2024-10-15 04:09 | Emergency (ER) | payer OTHER, SELFPAY ==
[2024-10-15 04:10] VITALS: BMI 32.3
[2024-10-15 04:19] VITALS: BP 115/76; PULSE 96; RESP 20; TEMP 36.3; O2SAT 98
--- NOTE | 2024-10-15 04:21 | EKG_ITS ---
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
[2024-10-15 05:19] LABS: Base Excess 2 (-3-3); HCO3 25 mEq/L (20-26); Inspired Oxygen, FIO2 21 %; O2 Saturation 99 % (91-98); PCO2 31 mmHg (32.0-48.0); PO2 103 mmHg (83-108); pH, Arterial 7.51 (7.35-7.45)
[2024-10-15 05:20] LABS: Allen Test Performed/OK; Puncture Site Right Radial
--- NOTE | 2024-10-15 05:46 | PD.EDRME ---
Rapid Medical Screening Exam RME Arrival date/time: 10/15/24 04:09 Chief Complaint: Shortness of Breath/Dyspnea Time Seen by Provider: 10/15/24 04:28 Vital signs: Vital Signs Temperature 97.4 F 10/15/24 04:19 Pulse Rate 96 10/15/24 04:19 Respiratory Rate 20 10/15/24 04:19 Blood Pressure 115/76 10/15/24 04:19 Pulse Oximetry (%) 98 10/15/24 04:19 Oxygen Delivery Method Room Air 10/15/24 04:19 Vital signs reviewed by provider: Yes RME Narrative: 69-year-old male presents to the ED with a complaint of dyspnea on exertion, shortness of breath and orthopnea. Discharge instructions include a prescription for Eliquis 5 mg twice daily however he was seen by the exterior designer last and told to disregard the prescription for Eliquis. He denies any palpitations or chest pain. He denies any nausea or vomiting. He is complaining of bilateral lower extremity edema. Patient is currently in atrial fibrillation at a rate of 96. Lungs are diminished at the bases. No respiratory distress is noted. 3+ pitting edema noted to bilateral lower extremities. EKG, labs, ABG, chest CT ordered and pending. I have greeted and performed a focused initial assessment of this patient. A comprehensive ED assessment and evaluation of the patient, analysis of all test results, and completion of the medical decision making process will be conducted by additional ED providers.
[2024-10-15 05:49] LABS: Collection Type, Urine Clean Catch
[2024-10-15 05:51] LABS: Lactate (Lactic Acid) 1.2 mMol/L (0.4-2.0)
[2024-10-15 05:57] LABS: COVID-19 Antigen (In-House) Negative (Negative)
[2024-10-15 06:01] LABS: Bilirubin,Urine Negative (Negative); Blood,Urine Negative (Negative); Clarity,Urine Clear (Clear/Hazy); Color,Urine Lt-Yellow (Lt Yel-Yel); Glucose, Urine Trace (Negative); Ketones,Urine Negative (Negative); Leukocyte Esterase,Urine Negative (Negative); Nitrite,Urine Negative (Negative); Protein,Urine Trace (Neg - Trace); RBC,Urine 1 /hpf (0-3); Specific Gravity,Urine 1.022 (1.001-1.035); Squamous Epithelial Cell,Urine < 1 /hpf (0-5); Urobilinogen,Urine Negative mg/dL (0.0-1.0); WBC,Urine 2 /hpf (0-5)
[2024-10-15 06:11] VITALS: BP 114/73; PULSE 78; RESP 18; O2SAT 95
[2024-10-15 06:13] LABS: INR 1.1 (0.9-1.3); Partial Thromboplastin Time 25.3 Seconds (22.0-36.0); Prothrombin Time 12.4 Seconds (9.0-12.2)
--- NOTE | 2024-10-15 06:25 | EDNOTE_ITS ---
ED General RME/HPI General Chief complaint: Shortness of Breath/Dyspnea Stated complaint: SOB Time Seen by Provider: 10/15/24 04:28 Arrival date/time: 10/15/24 04:09 Limitations: no limitations RME / HPI RME / HPI narrative: 69-year-old male presents to the ED with a complaint of dyspnea on exertion, shortness of breath and orthopnea. Discharge instructions include a prescription for Eliquis 5 mg twice daily however he was seen by the sausage machine operator last and told to disregard the prescription for Eliquis. He denies any palpitations or chest pain. He denies any nausea or vomiting. He is complaining of bilateral lower extremity edema. Patient is currently in atrial fibrillation at a rate of 96. Lungs are diminished at the bases. No respiratory distress is noted. 3+ pitting edema noted to bilateral lower extremities. EKG, labs, ABG, chest CT ordered and pending. I have greeted and performed a focused initial assessment of this patient. A comprehensive ED assessment and evaluation of the patient, analysis of all test results, and completion of the medical decision making process will be conducted by additional ED providers. DR. MENDIETA MAIN ED EVALUATION: 69 year old male with past medical history significant for hypertension, chronic DVT right lower extremity but not on blood thinners, ascending thoracic aortic aneurysm, CKD stage III, diabetes (off medications), and dementia? presents to the Emergency Department with complaints of shortness of breath and anxiety . Per son, patient was seen here for the same on Father's Day, and they told him he had atrial fibrillation. No fever or chills. No vomiting, diarrhea, constipation, or abdominal pain. No other symptoms reported at this time. Per son, his sausage machine operator knows about his atrial fibrillation; patient had a stress test last week and has an angiogram scheduled next month. Per son, he was a heavy alcohol drinker but quit 2 months ago. 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 Family history is significant for IN, heart disease (father at age 50). PCP: Dr. Gavin Manufacturing Test Technician: Dr. Troy Related Data Home Medications ?Medication ?Instructions ?Recorded ?Confirmed furosemide 40 mg tablet 40 mg PO DAILY 10/07/2409/23 linaclotide 290 mcg capsule 290 mcg PO DAILY 10/07/24 10/07/24 (Linzess) tamsulosin 0.4 mg capsule 0.8 mg PO DAILY 10/07/24 Previous Rx's ?Medication ?Instructions ?Recorded apixaban 5 mg tablet (Eliquis) 5 mg PO BID #60 tabs lorazepam 0.5 mg tablet (Ativan) 0.5 mg PO BID PRN anx iety #14 tabs 10/15/24 Allergies Allergy/AdvReac Type Severity Reaction Status Date / Time No Known Allergies Allergy Verified 10/15/24 04:18 Review of Systems Review of Systems Systems Reviewed: All systems reviewed, normal except as documented Past Medical History Past Medical History CARDIAC: Positive Atrial Fibrillation, Deep Vein Thrombosis and Hypertension GASTROINTESTINAL: Positive Gastrointestinal Disorders and Obesity GENITOURINARY: Positive Renal Disease and Benign Prostatic Hyperplasia Social History SMOKING STATUS: Never smoker SUBSTANCE USE: does not use ALCOHOL: Never ED Exam General Limitations: Present no limitations General appearance: Present alert and in no apparent distress Head Head exam: Present atraumatic, normocephalic and normal inspection Eye Eye exam: Present normal appearance, PERRL and EOMI ENT ENT exam: Present normal exam, normal oropharynx and mucous membranes moist Neck Neck exam: Present normal inspection, full ROM and trachea midline Chest Chest inspection: Present normal inspection and symmetric chest wall rise Respiratory Respiratory exam: Present normal lung sounds bilaterally Cardiovascular Cardiovascular exam: Present irregular rhythm (irregularly irregular), normal heart sounds and other (RUSB) Abdominal Exam Abdominal exam: Present soft and normal bowel sounds Extremities Exam Extremities exam: Present full ROM and pedal edema (2-3+ bilateral) Back Exam Back exam: Present normal inspection and full ROM Neurological Exam Neurological exam: Present alert, oriented X3 and CN II-XII intact Psychiatric Psychiatric exam: Present normal affect and normal mood Skin Skin exam: Present warm, dry, intact and normal color Course Quality Measures none Orders Category Date Time Status Bedside Influenza A&B Antigen Test NOW Care 10/15/24 04:[address] Screening NOW Care 10/15/24 04:47 Completed Client Resource Specialist Q4H START 00 Care 10/15/24 04:50 Active EKG (ED ONLY) *Do not use* NOW Care 10/15/24 04:21 Completed Insert IV NOW Care 10/15/24 04:48 Active EKG (ED Only) Stat Exams 10/15/24 04:21 Draft ABG [Arterial Blood Gas] Stat Lab 10/15/24 05:13 Completed B-Type Natriuretic Peptide Stat Lab 10/15/24 07:15 Completed Blood Culture (Lab) Stat Lab 10/15/24 05:44 Stop Req CBC Stat Lab 10/15/24 07:15 Completed CMP [Comprehensive Metabolic Panel] Stat Lab 10/15/24 05:44 Completed COVID-19 Antigen (In-House) Stat Lab 10/15/24 05:01 Completed Free T4 (Free Thyroxine) Stat Lab 10/15/24 05:44 Completed LDH (Lactate Dehydrogenase) Stat Lab 10/15/24 05:44 Completed Lactic Acid [Lactate (Lactic Acid)] Stat Lab 10/15/24 05:44 Completed Magnesium Stat Lab 10/15/24 05:44 Completed Partial Thromboplastin Time Stat Lab 10/15/24 05:44 Completed Procalcitonin Stat Lab 10/15/24 05:44 Completed Prothrombin Time with INR Stat Lab 10/15/24 05:44 Completed TSH [Thyroid Stimulating Hormone] Stat Lab 10/15/24 05:44 Completed Troponin I Stat Lab 10/15/24 05:44 Completed Urinalysis Stat Lab 10/15/24 05:24 Completed Enoxaparin [Lovenox] Med 10/15/24 06:31 Discontinued 100 mg SC X1 ONE Metoprolol Tartrate Inj [Lopressor Inj] Med 10/15/24 06:32 Discontinued 5 mg IVP X1 ONE Oseltamivir [Tamiflu] Med 10/15/24 06:31 Discontinued 75 mg PO X1 ONE Vital Signs Vital signs: Vital Signs Temperature 97.4 F 10/15/24 04:19 Pulse Rate 96 10/15/24 04:19 Respiratory Rate 20 10/15/24 04:19 Blood Pressure 115/76 10/15/24 04:19 Pulse Oximetry (%) 98 10/15/24 04:19 Oxygen Delivery Method Room Air 10/15/24 04:19 Discharge Plan Plan Patient Disposition: HOME (Self Care) Patient condition on transfer: Stable Prescriptions/Referrals Prescriptions/Med Rec: New lorazepam [Ativan] 0.5 mg tablet 0.5 mg PO BID MDD 2 PRN (Reason: anxiety) Qty: 14 0RF No Action Eliquis 5 mg tablet 5 mg PO BID Qty: 60 0RF tamsulosin 0.4 mg capsule 0.8 mg PO DAILY Patient Comments: TAKE 2 CAPSULES BY MOUTH EVERY DAY furosemide 40 mg tablet 40 mg PO DAILY Patient Comments: TAKE 1 TABLET BY MOUTH EVERY DAY Linzess 290 mcg capsule 290 mcg PO DAILY Referrals: Clemente Gavin MD [Primary Care Provider] - In 1 week Problem List Clinical Impression: Atrial fibrillation, rapid, Anxiety, Dyspnea Patient/Caregiver Discharge Instructions Education Materials: ED Atrial Fibrillation, ED Anxiety Reaction, ED Shortness of Breath (Dyspnea) Additional Instructions: Please follow-up with your primary care physician within 2-3 days. Restart your brilinta and follow up with your sausage machine operator Dr. Troy. Return to the Emergency Department as needed. Print Language: Dutch Stand Alone Forms: Sherrie Award Info., Patient Portal Info Letter MDM Narrative [facility] hospital course: I, Paula Whitney, am scribing for and in the presence of Dr. Mendieta. Clinical Information Provided by patient and family (son) Medical Records Reviewed [facility] Meds/Rx Considered, not Ordered None Labs/Rad/Tests considered, not Ordered None Chronic Illness/Social Conditions Add or document further as needed: hypertension, chronic DVT right lower extremity but not on blood thinners, ascending thoracic aortic aneurysm, CKD stage III, diabetes (off medications), and dementia? EKG EKG Interpretation narrative: My interpretation: EKG performed at 0425 hours, atrial fibrillation, rate 84, left bundle branch block, MS interval * ms, QRS duration 121 ms, QT/QTc 405/446, P-R-T axis *, -24, 97 Medication Administration(s) Medication Administration History Discontinued Medications Enoxaparin Sodium (Enoxaparin Sod Inj 100 Mg/Ml Syringe) 100 mg SC X1 ONE Stop: 10/15/24 06:32 Last Admin: 10/15/24 07:31 Dose: 100 mg Documented By: BRISA Metoprolol Tartrate (Metoprolol Tartrate Inj 1 Mg/Ml Amp 5 Ml) 5 mg IVP X1 ONE Stop: 10/15/24 06:33 Last Admin: 10/15/24 07:31 Dose: 5 mg Documented By: BRISA Oseltamivir Phosphate (Oseltamivir 75 Mg Capsule) 75 mg PO X1 ONE Stop: 10/15/24 06:32 Last Admin: 10/15/24 06:39 Dose: Not Given Documented By: GINETTE Non-Admin Reason: Cancelled by Provider Diagnosis Differential diagnosis: IN, PE, pneumonia, COVID, Influenza Most likely dx, and/or detailed dx discussion: Atrial fibrillation, rapid Anxiety Dyspnea Dispositon Disposition: Discharge Home
[2024-10-15 06:27] LABS: Alanine Aminotransferase 16 U/L (10-49); Albumin, Serum 4.1 gm/dL (3.4-4.8); Albumin/Globulin Ratio 1.8 (1.2-2.2); Alkaline Phosphatase 63 U/L (46-116); Anion Gap 11 (7-16); Aspartate Amino Transferase 15 U/L (0-34); BUN/Creatinine Ratio 19 Ratio (12-20); Blood Urea Nitrogen 33 mg/dL (9-23); Calcium 9.3 mg/dL (8.3-10.6); Calcium (Corrected) 9.3 mg/dL (8.5-10.1); Carbon Dioxide 26.4 mMol/L (20.0-31.0); Chloride 101 mMol/L (98-107); Creatinine (Component) 1.7 mg/dL (0.6-1.3); Estimated Creatinine Clearance 49.1 mL/min (>60); Free T4 (Free Thyroxine) 1.21 ng/dL (0.89-1.76); Globulin 2.3 gm/dL (2.3-3.5); Glucose 133 mg/dL (74-106); LDH (Lactate Dehydrogenase) 295 U/L (120-246); Magnesium 2.4 mg/dL (1.6-2.6); Osmolality,Calculated 284 (275-295); Potassium 4.1 mMol/L (3.4-5.1); Procalcitonin 0.11 ng/ml (0.0-0.49); Sodium 138 mMol/L (136-145); Thyroid Stimulating Hormone 2.46 uIU/mL (0.55-4.78); Total Protein 6.4 gm/dL (5.7-8.2); Troponin I 0.038 ng/mL (0.0-0.045); eGFR 43 See Note
[2024-10-15 07:26] LABS: Basophils # (Auto) 0.1 Thou/mm3 (0.0-0.2); Basophils % (Auto) 1 % (0-2.5); Eosinophils # (Auto) 0.1 Thou/mm3 (0.0-0.5); Eosinophils % (Auto) 1 % (0-10); Hematocrit 43.6 % (41.0-53.0); Hemoglobin 14.7 g/dL (13.5-16.0); Immature Granulocytes % (Auto) 1 % (0-0); Immature Granulocytes Auto 0.05 Thou/mm3 (0.00-0.00); Lymphocytes # (Auto) 1.2 Thou/mm3 (1.0-4.8); Lymphocytes % (Auto) 18 % (10-50); Mean Corpuscular HGB Conc 33.7 g/dl (31.0-37.0); Mean Corpuscular Hemoglobin 29.4 pg (25.0-35.0); Mean Corpuscular Volume 87 fL (80-100); Monocytes # (Auto) 0.5 Thou/mm3 (0.0-0.8); Monocytes % (Auto) 7 % (0-12); Neutrophils # (Auto) 4.7 Thou/mm3 (1.8-7.7); Neutrophils % (Auto) 72 % (37-80); Nucleated Red Blood Cell % 0 /100 WBC (0); Platelet Count 452 Thou/mm3 (140-440); RDW Standard Deviation 46.1 fL (35.1-43.9); White Blood Count 6.6 Thou/mm3 (3.8-10.6)
[2024-10-15 07:31] VITALS: BP 100/73; PULSE 88
[2024-10-15] MEDS: METOPROLOL TARTRATE INJ 1 MG/ML AMP 5 ML 5 MG IVP (07:31)
[2024-10-15] MEDS: ENOXAPARIN SOD INJ 100 MG/ML SYRINGE SC (07:31)
[2024-10-15 07:52] LABS: B-Type Natriuretic Peptide 698 pg/mL (0-100)
[2024-10-15 08:10] VITALS: BP 100/63; PULSE 85; RESP 23; TEMP 36.4; O2SAT 95
[2024-10-15 10:08] VITALS: BP 107/72; PULSE 78; RESP 18; TEMP 36.6; O2SAT 96
== END 2024-10-15 11:09 | disposition home or self-care (01) ==
PROVIDERS: Physician Assistant; Emergency Provider Family Medicine; PCP Internal Medicine
DX: I48.91 Unspecified atrial fibrillation (principal); F41.9 Anxiety disorder, unspecified; I44.7 Left bundle-branch block, unspecified; R06.00 Dyspnea, unspecified
CPT/HCPCS: 36415; 36600; 80053; 81001; 82803; 83605; 83615; 83735; 83880; 84145; 84439; 84443; 84484; 85025; 85610; 85730; 87040; 87400; 87811; 93005; 96372; 96374; 99285; J1650; J3490

== ENCOUNTER → 2024-10-22 | Outpatient (CLI) | payer OTHER, SELFPAY ==
[2024-10-22 09:08] LABS: Anion Gap 9 (7-16); BUN/Creatinine Ratio 21 Ratio (12-20); Blood Urea Nitrogen 48 mg/dL (9-23); Calcium 10.1 mg/dL (8.3-10.6); Carbon Dioxide 25.3 mMol/L (20.0-31.0); Chloride 100 mMol/L (98-107); Creatinine (Component) 2.3 mg/dL (0.6-1.3); Glucose 130 mg/dL (74-106); Osmolality,Calculated 282 (275-295); Potassium 4.2 mMol/L (3.4-5.1); Sodium 134 mMol/L (136-145); eGFR 30 See Note
== END | disposition home or self-care (01) ==
LOC: COPL 07:40
PROVIDERS: PCP Internal Medicine; Referring Provider Internal Medicine Cardiovascular Disease; Visit Provider Internal Medicine Cardiovascular Disease
DX: I48.0 Paroxysmal atrial fibrillation (principal)
CPT/HCPCS: 36415; 80048; 83735

== ENCOUNTER 2024-10-31 06:40 | Day surgery (SDC) | payer OTHER, SELFPAY ==
[2024-10-29 15:48] VITALS: BMI 33.7
--- NOTE | 2024-10-30 07:00 | EKG_ITS ---
[facility] Test Date: 2024-10-30 Pat Name: JUNIOR HUBBARD Department: Room: - Gender: Male Field Laboratory Operator: BILLY : 1955 Requested By: Machelle Jacobo Order Number: [id number] Reading MD: Machelle Jacobo Measurements Intervals [place] Rate: 88 P: [place]: QRS: 43 QRSD: 121 T: 198 QT: 374 QTc: 453 Interpretive Statements ATRIAL FLUTTER/TACHYCARDIA MODERATE INTRAVENTRICULAR CONDUCTION DELAY [105+ ms QRS DURATION, 80+ ms Q/S IN V1/V2, NO Q AND 60+ ms R IN I/aVL/V5/V6] ST ELEVATION, PROBABLY EARLY REPOLARIZATION [ST ELEVATION WITH NORMALLY INFLECTED T WAVE] MODERATE T-WAVE ABNORMALITY, CONSIDER INFERIOR ISCHEMIA [-0.1+ mV T WAVE IN II/aVF] Compared to ECG 10/15/2024 04:25:37 Intraventricular conduction delay now present ST (T wave) deviation now present Early repolarization now present T-wave abnormality now present Possible ischemia now present Atrial fibrillation no longer present Left bundle-branch block no longer present /store/S0/[id number].pdf
[2024-10-30 10:27] LABS: Basophils # (Auto) 0.0 Thou/mm3 (0.0-0.2); Basophils % (Auto) 1 % (0-2.5); Eosinophils # (Auto) 0.0 Thou/mm3 (0.0-0.5); Eosinophils % (Auto) 1 % (0-10); Hematocrit 45.1 % (41.0-53.0); Hemoglobin 15.2 g/dL (13.5-16.0); Immature Granulocytes Auto 0.02 Thou/mm3 (0.00-0.00); Lymphocytes # (Auto) 1.1 Thou/mm3 (1.0-4.8); Lymphocytes % (Auto) 18 % (10-50); Mean Corpuscular HGB Conc 33.7 g/dl (31.0-37.0); Mean Corpuscular Hemoglobin 29.0 pg (25.0-35.0); Mean Corpuscular Volume 86 fL (80-100); Monocytes # (Auto) 0.6 Thou/mm3 (0.0-0.8); Monocytes % (Auto) 11 % (0-12); Neutrophils # (Auto) 4.2 Thou/mm3 (1.8-7.7); Neutrophils % (Auto) 70 % (37-80); Nucleated Red Blood Cell # 0.00 Thou/mm3 (0.00-0.00); Nucleated Red Blood Cell % 0 /100 WBC (0); Platelet Count 397 Thou/mm3 (140-440); RDW Standard Deviation 46.7 fL (35.1-43.9); Red Blood Count 5.25 Miln/mm3 (4.50-5.90); White Blood Count 6.0 Thou/mm3 (3.8-10.6)
[2024-10-30 10:43] LABS: Anion Gap 9 (7-16); BUN/Creatinine Ratio 17 Ratio (12-20); Blood Urea Nitrogen 34 mg/dL (9-23); Calcium 9.4 mg/dL (8.3-10.6); Carbon Dioxide 27.7 mMol/L (20.0-31.0); Chloride 102 mMol/L (98-107); Creatinine (Component) 2.0 mg/dL (0.6-1.3); Estimated Creatinine Clearance 42.6 mL/min (>60); Glucose 131 mg/dL (74-106); Osmolality,Calculated 287 (275-295); Potassium 4.2 mMol/L (3.4-5.1); Sodium 139 mMol/L (136-145); eGFR 35 See Note
[2024-10-30 10:55] LABS: INR 1.2 (0.9-1.3); Partial Thromboplastin Time 35.9 Seconds (22.0-36.0); Prothrombin Time 12.8 Seconds (9.0-12.2)
[2024-10-31] VITALS (11 sets, daily range): BP systolic 89–118; BP diastolic 57–78; PULSE 58–96; RESP 12–20; TEMP 36.2; O2SAT 96–100
[2024-10-31] MEDS: DIAZEPAM 5 MG TABLET PO (07:31)
--- NOTE | 2024-10-31 09:37 | ESOP_ITS ---
RE: JUNIOR HUBBARD : 1955 DATE OF OPERATION: 10/31/2024 PROCEDURES PERFORMED: 1. Diagnostic right and left heart cardiac catheterization, selective coronary angiogram, and left ventricular angiogram, CPT 48778. 2. Conscious sedation, 30-minute duration. 3. Ultrasound-guided access of the right radial artery and right femoral vein. DIAGNOSES: Congestive heart failure, ischemic cardiomyopathy, abnormal nuclear stress test, and mitral regurgitation. HISTORY AND INDICATIONS: The patient is a 69-year-old male with a past medical history of diabetes mellitus, hypertension, and family history of CAD. His son already had a myocardial infarction and stent placed. He has been having severe shortness of breath, progressive shortness of breath, weakness, orthopnea, and paroxysmal nocturnal dyspnea. He has congestive heart failure symptoms, well-treated with medical management. Also, echocardiogram showed evidence of severe 3+ mitral regurgitation and an ejection fraction of 40%. Nuclear scan showed multiple perfusion defects in the septal, lateral, and anterolateral segments. Hence right and left cardiac catheterization and coronary angiogram was recommended to assess the patient is a candidate for revascularization. DESCRIPTION OF PROCEDURE: The patient was brought to cardiac catheterization laboratory where he was given 2 mg of Versed and 50 mcg of fentanyl for sedation. The right radial artery was cannulated by micropuncture technique after 1% Xylocaine for local anesthesia, 6-Afghan Glidesheath was introduced. Right femoral vein was cannulated by ultrasound guidance, and a 7-Afghan sheath was introduced. Right heart catheterization was performed by a Philo-Diane catheter. Right heart pressures were measured. Left heart catheterization was performed by 5-Afghan pigtail catheter. Left ventricular angiogram was performed with 20 mL of contrast. Subsequently, selective right coronary angiogram was performed by 5-Afghan TIG-4 diagnostic catheter. Left coronary angiogram was performed by a 5-Afghan TIG-4 diagnostic catheter. The patient tolerated the procedure well with no complications. Radial cocktail was given and Juan Carlos-Synephrine 100 mcg was given because of low blood pressure. The patient remained in atrial flutter/fibrillation during the procedure. The patient tolerated the procedure well with no complications. Cardiac catheterization showed following findings. The patient has well treated heart failure. Right atrial pressure was found to be 10 mmHg. Right ventricular pressure was 41/8 mmHg. Pulmonary artery pressure was 38/23 mmHg with mean PA pressure of 29 mmHg. Pulmonary wedge pressure was found to be a mean of 12 mmHg. Left ventricular pressure was measured to be 86/13 mmHg with an EDP of 19 mmHg, and aortic pressure was 94/58 mmHg. There was no gradient across the aortic valve. Left ventricular angiogram showed evidence of dilated left ventricle with evidence of severe global hypokinesis with an ejection fraction of 25%. Coronary angiogram showed following findings: Right coronary artery was large and dominant. After giving off a right ventricular branch and one PL branch, totally occluded, distal RCA was completely occulted filling via excellent collaterals from left coronary system. Left main coronary artery was normal. The left anterior descending artery was totally occluded in the proximal and mid segment, reconstituted excellently via [id number] collaterals from the diagonal branches. Large diagonal branch and LAD were visualized with free of disease distally. Circumflex artery was totally occluded after the AV groove branch, which supplied collaterals. The distal circumflex artery was occluded and PL branches were visualized via collaterals. SUMMARY OF FINDINGS: Severe multivessel coronary artery disease with evidence of distal RCA total occlusion, mid and distal circumflex artery total occlusion, and proximal-mid LAD total occlusion, good distal targets with severe LV dysfunction. RECOMMENDATIONS: The patient is recommended to have medical management and coronary artery bypass surgery x4. ____Ector_ will be consulted to perform surgery as an outpatient. DT: 08:52:31 TT: 09:36:00 Ref: [id number] - TID: [id number] [facility] SERVICES[facility]
== END 2024-10-31 12:00 | disposition home or self-care (01) ==
PROVIDERS: PCP Internal Medicine; Referring Provider Internal Medicine Cardiovascular Disease; Visit Provider Internal Medicine Cardiovascular Disease
PROC: (CPT 93460; principal; 2024-10-31 07:30)
DX: I25.118 Atherosclerotic heart disease of native coronary artery with other forms of angina pectoris (principal); I50.32 Chronic diastolic (congestive) heart failure; I34.0 Nonrheumatic mitral (valve) insufficiency; I25.5 Ischemic cardiomyopathy; N40.0 Benign prostatic hyperplasia without lower urinary tract symptoms; E11.22 Type 2 diabetes mellitus with diabetic chronic kidney disease; N18.9 Chronic kidney disease, unspecified; Z01.810 Encounter for preprocedural cardiovascular examination; Z82.49 Family history of ischemic heart disease and other diseases of the circulatory system; Z79.899 Other long term (current) drug therapy
CPT/HCPCS: 93460; 36415; 80048; 85025; 85610; 85730; 93005; 99152; A4649; C1769; C1887; C1894; J0153; J0171; J0282; J0461; J1643; J2250; J2310; J2371; J3010; J3490; Q9967; A9270; J2305

== ENCOUNTER → 2024-11-02 | Outpatient (BNVA) | payer OTHER, SELFPAY | END | disposition home or self-care (01) | PROVIDERS: PCP Internal Medicine; Referring Provider Internal Medicine; Visit Provider Urology | DX: N40.0 Benign prostatic hyperplasia without lower urinary tract symptoms (principal); N18.30 Chronic kidney disease, stage 3 unspecified; I48.91 Unspecified atrial fibrillation; Z86.718 Personal history of other venous thrombosis and embolism | CPT/HCPCS: 99212; G0463 ==

== ENCOUNTER 2024-11-09 09:00 | Emergency (ER) | payer OTHER, MEDICAID, SELFPAY ==
[2024-11-09 09:13] VITALS: BP 97/61; PULSE 82; RESP 18; TEMP 36.1; O2SAT 96; BMI 32.6
--- NOTE | 2024-11-09 09:24 | EKG_ITS ---
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: : 1955 Requested By: Vinh Davis Order Number: [id number] Reading MD: Vinh Davis Measurements Intervals [place] Rate: 73 P: SD: QRS: -28 QRSD: 128 T: 67 QT: 414 QTc: 458 Interpretive Statements ATRIAL FIBRILLATION MODERATE INTRAVENTRICULAR CONDUCTION DELAY [105+ ms QRS DURATION, 80+ ms Q/S IN V1/V2, NO Q AND 60+ ms R IN I/aVL/V5/V6] NONSPECIFIC T-WAVE ABNORMALITY Compared to ECG 10/30/2024 10:35:14 Atrial flutter no longer present ST (T wave) deviation no longer present Early repolarization no longer present Possible ischemia no longer present T-wave abnormality still present /store/S0/[id number]/[id number].pdf
--- NOTE | 2024-11-09 09:24 | XR_ITS ---
Examination: PA lateral chest 2 views TECHNIQUE: Upright PA lateral chest 2 views Date and time: November 09, 2024 0948 hours Comparison October 07, 2024 INDICATIONS: Chest pain one week. FINDINGS: Early pneumonia right base. Mild enlargement cardiac contour No pulmonary edema. Mild osteopenia, old right-sided rib fractures IMPRESSION: Early pneumonia right base
--- NOTE | 2024-11-09 09:35 | PD.EDRME ---
Rapid Medical Screening Exam RME Arrival date/time: 11/09/24 09:00 69-year-old male with a history of BPH, atrial fibrillation presents to the emergency room with a chief complaint of numbness to the bilateral upper extremities x 1 day I have greeted and performed a focused initial assessment of this patient. A comprehensive ED assessment and evaluation of the patient, analysis of all test results, and completion of the medical decision making process will be conducted by additional ED providers. Chief Complaint: Hand/Wrist Problems Time Seen by Provider: 11/09/24 09:28 Vital signs: Vital Signs Temperature 96.9 F 11/09/24 09:13 Pulse Rate 82 11/09/24 09:13 Respiratory Rate 18 11/09/24 09:13 Blood Pressure 97/61 11/09/24 09:13 Pulse Oximetry (%) 96 11/09/24 09:13 Oxygen Delivery Method Room Air 11/09/24 09:13 Vital signs reviewed by provider: Yes
[2024-11-09 10:25] LABS: Basophils # (Auto) 0.0 Thou/mm3 (0.0-0.2); Basophils % (Auto) 1 % (0-2.5); Eosinophils # (Auto) 0.1 Thou/mm3 (0.0-0.5); Eosinophils % (Auto) 1 % (0-10); Hematocrit 46.3 % (41.0-53.0); Hemoglobin 15.6 g/dL (13.5-16.0); Immature Granulocytes Auto 0.02 Thou/mm3 (0.00-0.00); Lymphocytes # (Auto) 1.3 Thou/mm3 (1.0-4.8); Lymphocytes % (Auto) 24 % (10-50); Mean Corpuscular HGB Conc 33.7 g/dl (31.0-37.0); Mean Corpuscular Hemoglobin 28.7 pg (25.0-35.0); Mean Corpuscular Volume 85 fL (80-100); Monocytes # (Auto) 0.4 Thou/mm3 (0.0-0.8); Monocytes % (Auto) 8 % (0-12); Neutrophils # (Auto) 3.7 Thou/mm3 (1.8-7.7); Neutrophils % (Auto) 66 % (37-80); Nucleated Red Blood Cell # 0.00 Thou/mm3 (0.00-0.00); Nucleated Red Blood Cell % 0 /100 WBC (0); Platelet Count 240 Thou/mm3 (140-440); RDW Standard Deviation 45.5 fL (35.1-43.9); Red Blood Count 5.43 Miln/mm3 (4.50-5.90); White Blood Count 5.5 Thou/mm3 (3.8-10.6)
[2024-11-09 10:44] LABS: INR 1.1 (0.9-1.3); Partial Thromboplastin Time 31.3 Seconds (22.0-36.0); Prothrombin Time 12.0 Seconds (9.0-12.2)
[2024-11-09 10:47] LABS: Alanine Aminotransferase 30 U/L (10-49); Albumin, Serum 4.5 gm/dL (3.4-4.8); Albumin/Globulin Ratio 2.1 (1.2-2.2); Alkaline Phosphatase 54 U/L (46-116); Anion Gap 10 (7-16); Aspartate Amino Transferase 22 U/L (0-34); BUN/Creatinine Ratio 17 Ratio (12-20); Bilirubin,Total 1.1 mg/dL (0.3-1.2); Blood Urea Nitrogen 27 mg/dL (9-23); Calcium 10.3 mg/dL (8.3-10.6); Calcium (Corrected) 10.3 mg/dL (8.5-10.1); Carbon Dioxide 22.9 mMol/L (20.0-31.0); Chloride 104 mMol/L (98-107); Creatinine (Component) 1.6 mg/dL (0.6-1.3); Estimated Creatinine Clearance 50.9 mL/min (>60); Globulin 2.1 gm/dL (2.3-3.5); Glucose 124 mg/dL (74-106); Magnesium 1.9 mg/dL (1.6-2.6); Osmolality,Calculated 279 (275-295); Potassium 4.2 mMol/L (3.4-5.1); Sodium 137 mMol/L (136-145); Total Protein 6.6 gm/dL (5.7-8.2); Troponin I 0.028 ng/mL (0.0-0.045); eGFR 46 See Note
[2024-11-09 10:54] LABS: Collection Type, Urine Clean Catch
[2024-11-09 10:59] LABS: B-Type Natriuretic Peptide 615 pg/mL (0-100)
[2024-11-09 11:00] LABS: Bilirubin,Urine Negative (Negative); Blood,Urine Negative (Negative); Clarity,Urine Clear (Clear/Hazy); Color,Urine Lt-Yellow (Lt Yel-Yel); Glucose, Urine Negative (Negative); Hyaline Casts,Urine < 1 /hpf (0-1); Ketones,Urine Negative (Negative); Leukocyte Esterase,Urine Negative (Negative); Nitrite,Urine Negative (Negative); PH,Urine 6.0 (5.0-7.0); Protein,Urine Negative (Neg - Trace); RBC,Urine 4 /hpf (0-3); Specific Gravity,Urine 1.015 (1.001-1.035); Squamous Epithelial Cell,Urine < 1 /hpf (0-5); Urobilinogen,Urine Negative mg/dL (0.0-1.0); WBC,Urine 1 /hpf (0-5)
[2024-11-09 11:29] VITALS: BP 104/73; PULSE 87; RESP 20; TEMP 36.4; O2SAT 98
--- NOTE | 2024-11-09 11:51 | EDNOTE_ITS ---
Upper Extremity Injury RME/HPI General Chief Complaint: Hand/Wrist Problems Stated Complaint: Triple bypass on 11/14/24, fingers are numb Time Seen by Provider: 11/09/24 09:28 Arrival date/time: 11/09/24 09:00 RME / HPI RME / HPI narrative: 69-year-old male patient with significant history of BPH, A-fib, CAD, came in for evaluation regarding tingling sensation to the tip of the finger bilateral since early this morning. Lasted for several minutes. Patient denies any neck pain denies any shortness of breath denies any cough denies any fever denies any other complaints. Patient seen by fiberline supervisor and had an angiogram done few d ays ago and was referred to cardiothoracic surgeon for possible open heart surgery in [place] next week. Denies any other complaints. Related Data Home Medications ?Medication ?Instructions ?Recorded ?Confirmed furosemide 40 mg tablet 40 mg PO DAILY 10/07/2410/23 linaclotide 290 mcg capsule 290 mcg PO DAILY 10/07/24 11/02/24 (Linzess) magnesium 250 mg tablet 250 mg PO QDAY 10/31/2410/23 mecobalamin (vitamin B12) 1,000 1,000 mcg PO QDAY 01/1711/02/24 mcg chewable tablet (B12 Active) spironolactone 25 mg tablet 25 mg PO QDAY 10/31/2403/19 tamsulosin 0.4 mg capsule 0.4 mg PO DAILY 11/02/2403/19 Previous Rx's ?Medication ?Instructions ?Recorded apixaban 5 mg tablet (Eliquis) 5 mg PO BID #60 tabs Held on 10/31/24. Instructions: until seen by Dr Troy Allergies Allergy/AdvReac Type Severity Reaction Status Date / Time No Known Allergies Allergy Verified 11/09/24 09:05 Review of Systems Review of Systems Narrative Review of Systems: Review of system reviewed and within normal limits except mentioned in HPI ED Exam Narrative Physical exam: VITAL SIGNS: Reviewed. GENERAL APPEARANCE: Alert and interactive, follows commands, no acute distress, HEAD AND FACE: Non-traumatic. ENT: PERRL, pink conjunctivitis, eyelid no trauma, Mucous membrane moist. NECK: Supple, nontender, no nuchal rigidity. CHEST: No tenderness, no crepitus, no paradoxical movement, no retractions. LUNGS: Clear, well ventilated, symmetric, no rales, no wheezing, no ronchi, no stridor, good breath sounds bilaterally. HEART: Regular rate, regular rhythm, no murmur, no gallops. ABDOMEN: Soft, positive bowel sounds, nondistended, no guarding, nontender, no rebound, no masses, RECTAL: Deferred. GENITAL: Deferred. NEUROLOGICAL: Gross motor function intact sensory function intact, Appropriate for age. MUSCULOSKELETAL: low back nontender, full range of motion. EXTREMITIES: Nontender, full range of motion. SKIN: Color pink, dry, no rash, no lacerations, no abrasions, no contusions. LYMPHATICS: Deferred. Course Quality Measures none Orders Category Date Time Status EKG (ED ONLY) *Do not use* NOW Care 11/09/24 09:24 Completed EKG (ED Only) Stat Exams 11/09/24 09:24 Draft XR chest 2V Stat Exams 11/09/24 09:24 Completed B-Type Natriuretic Peptide Stat Lab 11/09/24 10:00 Completed CBC Stat Lab 11/09/24 10:00 Completed Comprehensive Metabolic Panel Stat Lab 11/09/24 10:00 Completed Magnesium Stat Lab 11/09/24 10:00 Completed Partial Thromboplastin Time Stat Lab 11/09/24 10:00 Completed Prothrombin Time with INR Stat Lab 11/09/24 10:00 Completed Troponin I Stat Lab 11/09/24 10:00 Completed Urinalysis Stat Lab 11/09/24 10:28 Completed Vital Signs Vital signs: Vital Signs Temperature 96.9 F 11/09/24 09:13 Pulse Rate 82 11/09/24 09:13 Respiratory Rate 18 11/09/24 09:13 Blood Pressure 97/61 11/09/24 09:13 Pulse Oximetry (%) 96 11/09/24 09:13 Oxygen Delivery Method Room Air 11/09/24 09:13 Extremity Injury MDM Narrative MDM Narrative:: 69-year-old male patient with significant history of BPH, A-fib, CAD, came in for evaluation regarding tingling sensation to the tip of the finger bilateral since early this morning. Lasted for several minutes. Patient denies any neck pain denies any shortness of breath denies any cough denies any fever denies any other complaints. Patient seen by fiberline supervisor and had an angiogram done few days ago and was referred to cardiothoracic surgeon for possible open heart surg reji in [place] next week. Denies any other complaints. EKG as interpreted by me showed A-fib, ventricular rate of 73 bpm, no ST segment elevation or depression noted. CBC showed no abnormality noted, CMP came back unremarkable except for creatinine 1.6 BUN of 27, last creatinine was noted to be 2.0 it is better than previous creatinine. Troponin was noted to be normal. BNP is slightly bit over 615. Chest x-ray showed possible early pneumonia however patient is not having any cough no fever no shortness of breath. Prior to discharge patient is not having any recurrence of tingling sensation to the fingers. Patient stable for discharge home Patient data External records reviewed:: None Clinical information provided by:: patient and family Social determinants that could affect healthcare access:: none (CAD, BPH, A-fib) Patient has the following chronic illnesses:: CAD BPH A-fib How is presenting disease/condition affected by chronic disease/condition?: exacerbated by Evaluation data The following diagnostics were reviewed and interpreted by me:: lab results, radiology exam(s) and EKG tracing(s) Lab and/or radiology exams considered but not ordered:: None Interpretation Summary: See results MDM Medications / Prescriptions Medications or Prescriptions considered but not ordered:: None Medication administrations:: None Consultations Consultation(s) initiated? (list below): No Diagnosis Upper Extremity Injury Differential Diagnosis: other (Neuropathy, paresthesia, PAD) Most likely diagnosis given after review of the tests above:: Finger paresthesia Admission Indicated Admission indicated?: not indicated Admission Request Was there a request for admission?: No Disposition Plan Disposition Plan: Discharge Discharge Attestation Discharge Attestation: The patient and all family members were given an opportunity to ask questions and understood the discharge instructions. Discharge instructions specifically effects, indications for sooner follow up or return to the emergency department, and the expected course of current diagnosis. Patient condition: Stable Discharge Plan Plan Patient Disposition: HOME (Self Care) Discharge Disposition comment: Stable Prescriptions/Referrals Prescriptions/Med Rec: No Action Eliquis 5 mg tablet 5 mg PO BID Qty: 60 0RF furosemide 40 mg tablet 40 mg PO DAILY Patient Comments: TAKE 1 TABLET BY MOUTH EVERY DAY Linzess 290 mcg capsule 290 mcg PO DAILY tamsulosin 0.4 mg capsule 0.4 mg PO DAILY Patient Comments: TAKE 2 CAPSULES BY MOUTH EVERY DAY magnesium 250 mg tablet 250 mg PO QDAY spironolactone 25 mg tablet 25 mg PO QDAY mecobalamin (vitamin B12) [B12 Active] 1,000 mcg tablet,chewable 1,000 mcg PO QDAY Referrals: Clemente Gavin MD [Primary Care Provider] - In 1 week Problem List Clinical Impression: Paresthesia of finger Patient/Caregiver Discharge Instructions Discharge Activity: activity as tolerated Education Materials: ED Paraesthesias Additional Instructions: Thank you for the opportunity for serving you today. You are stable for discharged . You are advised to: Follow-up with your PCP in 1 to 2 days Return to ED for worsening of symptoms Print Language: Algerian Stand Alone Forms: Sherrie Award Info., Patient Portal Info Letter PA/AMBULATORY NURSE Supervising Physician EMMA/AMBULATORY NURSE Supervising Physician: MD Mariusz
[2024-11-09 12:01] VITALS: BP 114/73; PULSE 80; RESP 16; TEMP 36.7; O2SAT 99
== END 2024-11-09 12:02 | disposition home or self-care (01) ==
PROVIDERS: Nurse Practitioner Family; Emergency Provider Family Medicine; PCP Internal Medicine
DX: R20.2 Paresthesia of skin (principal); I48.91 Unspecified atrial fibrillation; R94.31 Abnormal electrocardiogram [ECG] [EKG]; J18.9 Pneumonia, unspecified organism
CPT/HCPCS: 36415; 71046; 80053; 81001; 83735; 83880; 84484; 85025; 85610; 85730; 93005; 99284

== ENCOUNTER 2024-12-19 05:14 | Inpatient (IN) | payer OTHER, MEDICAID, MEDICARE, SELFPAY ==
[2024-12-19] VITALS (12 sets, daily range): BP systolic 103–118; BP diastolic 48–86; PULSE 62–113; RESP 16–95; TEMP 36.2–36.9; O2SAT 95–99; BMI 29.4
--- NOTE | 2024-12-19 | XR_ITS ---
Examinations: MRI Brain without intravenous contrast. MRA brain without intravenous contrast. MRA carotids without intravenous contrast 3-D vascular reconstructions Date and time of exam: December 19, 2024 1556 hrs. Indications: Stroke alert today, onset facial droop and confusion right-sided sensory loss Technique: Multiple axial and sagittal images of the brain have been obtained MRA brain carotid images without contrast obtained, including 3-D postprocessing, vascular maximum intensity projection images Findings: Sellaturc[place] is not enlarged. The optic chiasm and infundibular stalk are not remarkable. Prepontine and interpeduncular cisterns are not enlarged. No localized enlargement of the medulla or eitan. Fourth ventricle and cerebellar tonsils normal in position. Subacute hemorrhage is not seen. Fourth ventricle is midline. Mass in the cerebellopontine angle region is not evident. 7th and 8th nerve complexes exhibits symmetry. Globes are symmetrical with no retro-orbital mass. Increased white matter signal prominent Diffusion-weighted images demonstrate 18 mm focus restricted diffusion in the right parietal lobe with matching signal deficit on the ADC map Mass-effect upon the ventricular system is not identified. MRA brain images no large vessel occlusions. Impression: 18 mm acute infarct right parietal lobe
--- NOTE | 2024-12-19 05:18 | EKG_ITS ---
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
--- NOTE | 2024-12-19 05:18 | XR_ITS ---
Examination: AP chest single view Technique one AP portable upright chest single view Date and time: December 19, 2024, 0555 hours INDICATIONS: Stroke alert FINDINGS: Mild enlargement cardiac contour. No aspiration pneumonia. 8mm pulmonary nodule right upper lobe No pulmonary edema Moderate osteopenia IMPRESSION: Recommend AP lordotic chest follow-up to confirm pulmonary nodule right upper lobe
--- NOTE | 2024-12-19 05:18 | XR_ITS ---
Examination: CTA carotids with intravenous contrast CTA brain, head with intravenous contrast. 2-D sagittal, coronal reconstructions. 3-D reconstructions. Exam date and time: December 19, 2024, 0532 hours INDICATIONS: Stroke alert, onset focal neurologic deficit this morning CTDI: vol (mGy) 11.7 DLP: (mGycm) 462 Technique: Multiple CTA axial brain, head carotid images post intravenous contrast injection 75 cc, [id number]. 2-D sagittal, coronal reconstructions. 3-D reconstructions, 3-D post processing including vascular maximum intensity projection images. Low dose protocols were performed. One or more of the following dose reduction techniques were used; automated exposure control, adjustment of the mA and/or KV according to patient size, use of iterative reconstruction technique. Findings: Heavy calcification right carotid bifurcation, 40-60% stenosis right carotid bifurcation and origin right internal carotid artery No significant left common carotid carotid bifurcation or internal carotid artery stenoses No significant vertebral artery stenoses, moderate calcification at the origin of the right vertebral artery 30% stenosis Significant calcification juxtasellar portions internal carotid arteries No cerebral large vessel arterial occlusions or thrombus IMPRESSION: 40-60% stenosis right carotid bifurcation origin right internal carotid artery No cerebral large vessel arterial occlusions or thrombus
--- NOTE | 2024-12-19 05:18 | XR_ITS ---
Examination: CT brain head without contrast. 2-D sagittal coronal reconstructions Date and time of exam:December 19, 2024, 0531 hours INDICATIONS: Onset focal neurologic deficit today, stroke alert CTDI: vol (mGy):55.9 DLP: (mGycm):1156 Technique: Multiple CT axial sections of the brain have been obtained, 5 mm slice thickness. Contrast has not been administered. 2-D sagittal, coronal reconstructions have been obtained Low dose protocols were performed. One or more of the following dose reduction techniques were used; automated exposure control, adjustment of the mA and/or KV according to patient size, use of iterative reconstruction technique. Findings: No significant ventricular enlargement. Encephalomalacia in the right occipital lobe Intra-axial or extra-axial hemorrhage density is not seen. No mass effect or midline shift Basal cisterns are not remarkable. Fourth ventricle is midline. Cranial vault intact. Impression: Negative for acute hemorrhage, mass effect or midline shift As clinically warranted, brain MRI follow-up would best assess for acute ischemic change
--- NOTE | 2024-12-19 05:19 | PD.EDRME ---
Rapid Medical Screening Exam RME Arrival date/time: 12/19/24 05:14 69M with history of afib, CAD, BPH, and thoracic aortic anuerysm presents to ED with son for 1 hour of slurred speech and R facial droop. Son said patient was last seen around 2029 yesterday before patient went to bed and was acting normally. Chief Complaint: General Adult/Misc Complain
--- NOTE | 2024-12-19 05:24 | PD.EDADULT ---
ED General RME/HPI General Chief complaint: General Adult/Misc Complain Stated complaint: STROKE R/O Time Seen by Provider: 12/19/24 06:00 Arrival date/time: 12/19/24 05:14 RME / HPI RME / HPI narrative: 12/19/24 05:14 69M with history of afib, CAD, BPH, and thoracic aortic anuerysm presents to ED with son for 1 hour of slurred speech and R facial droop. Son said patient was last seen around 2029 yesterday before patient went to bed and was acting normally. -------- Dr. Burnette?s Main ED Evaluation: 69yo male who is pending cardiac surgery, recently off Eliquis presents after LKWT 2029, found this morning at 0430 with noted left-sided facial weakness and dysarthria. Patient presents to the ED with suspected CVA. No reported fever, vomiting, or headache. PMH includes CAD, HTN, aFib. PSH noncontributory. Social history unknown. Related Data Home Medications ?Medication ?Instructions ?Recorded ?Confirmed furosemide 40 mg tablet 40 mg PO DAILY 10/07/24 11/02/24 linaclotide 290 mcg capsule 290 mcg PO DAILY 10/07/24 11/02/24 (Linzess) magnesium 250 mg tablet 250 mg PO QDAY 10/31/24 11/02/24 mecobalamin (vitamin B12) 1,000 1,000 mcg PO QDAY 10/31/24 11/02/24 mcg chewable tablet (B12 Active) spironolactone 25 mg tablet 25 mg PO QDAY 10/31/24 11/02/24 tamsulosin 0.4 mg capsule 0.4 mg PO DAILY 11/02/24 11/02/24 Previous Rx's ?Medication ?Instructions ?Recorded apixaban 5 mg tablet (Eliquis) 5 mg PO BID #60 tabs 10/07/24 Held on 10/31/24. Instructions: until seen by Dr Troy Allergies Allergy/AdvReac Type Severity Reaction Status Date / Time No Known Allergies Allergy Verified 11/09/24 09:05 Review of Systems Review of Systems Systems Reviewed: All systems reviewed, normal except as documented Past Medical History Past Medical History NEUROLOGIC: Negative Neurological Disorders, Cerebrovascular Accident or Seizures CARDIAC: Positive Atrial Fibrillation, Deep Vein Thrombosis and Hypertension; Negative Cardiac Disorders, Hypercholesterolemia or Congestive Heart Failure RESPIRATORY: Negative Chronic Obstructive Pulmonary Disease (COPD), Asthma or Sleep Apnea GASTROINTESTINAL: Positive Gastrointestinal Disorders and Obesity GENITOURINARY: Positive Renal Disease and Benign Prostatic Hyperplasia; Negative Genitourinary Disorders or Kidney Stones MUSCULOSKELETAL: Positive Fractures (pelvis, tail bone); Negative Musculoskeletal Disorders or Arthritis ENDOCRINE: Negative Endocrine Disorders, Diabetes Mellitus Type 1, Diabetes Mellitus Type 2 or Hyperthyroidism HEMATOLOGIC: Negative Blood Disorders, Anemia or Sickle Cell Disease PSYCHO/SOCIAL: Positive Anxiety OTHER HISTORY: Positive Measles; Negative Hospitalization, Down Syndrome, Developmental Delay, Falls, Blood Transfusions, Anesthesia Reactions or Cancer Surgical History SURGICAL: Positive Angiogram (10/31/2024); Negative Ear Surgery Social History SMOKING STATUS: Never smoker SUBSTANCE USE: does not use ED Exam Narrative Physical exam: GENERAL APPEARANCE: alert and oriented x 4, well-developed, well-nourished, no acute distress VITALS: All vitals were reviewed and the pulse ox is 95% on room air, which is normal according to my interpretation. HEENT: Normocephalic, atraumatic; pupils equal, round, reactive to light; EOMI; mucous membranes pink, moist; oropharynx clear NECK: Supple LUNGS: CTABL; no wheezes, no rales, no rhonchi HEART: Regular rate, regular rhythm; normal S1, S2; no murmurs ABDOMEN: non distended; normal BS; soft, no tenderness, no guarding, no rebound; no masses, no organomegaly, no hernia BACK: no CVA tenderness EXTREMITIES: atraumatic; no edema NEUROLOGIC: awake; alert and oriented x4; cranial nerves II-XII grossly intact excluding central left 7th nerve palsy; no focal sensory or motor deficits; senations grossly intact; NIHSS 3 PSYCHIATRIC: appropriate mood and affect SKIN: warm, dry, normal color; no rashes Course Course Course Narrative: 0518: Stroke alert initiated. Quality Measures Suspected type of Stroke: Unknown at this time Tenecteplase given: Reason(s) TPA not given: Outside the time window not given stroke Orders Category Date Time Status Bedside Blood Glucose NOW Care 12/19/24 05:17 Active Varnisher Apprentice NOW Care 12/19/24 05:18 Active Continuous Pulse Oximetry NOW Care 12/19/24 05:18 Completed EKG (ED ONLY) *Do not use* NOW Care 12/19/24 05:18 Completed In and Out Catheter NEEDED Care 12/19/24 05:18 Active Insert IV NOW Care 12/19/24 05:18 Active NIH Stroke Scale now Care 12/19/24 05:18 Active NPO NOW Care 12/19/24 05:18 Active Nurse Swallow Screen x1 Care 12/19/24 05:18 Active Consult to Neurology / Tele-Neurology Routine Cons 12/19/24 05:[address] angio stroke protocol Stat Exams 12/19/24 05:[address] stroke protocol Stat Exams 12/19/24 05:18 Completed EKG (ED Only) Stat Exams 12/19/24 05:18 Draft XR chest 1V portable Stat Exams 12/19/24 05:18 Taken CBC Stat Lab 12/19/24 05:35 Completed Comprehensive Metabolic Panel Stat Lab 12/19/24 06:15 Received Drug Screen,Urine Stat Lab 12/19/24 05:18 Ordered Magnesium Stat Lab 12/19/24 06:15 Received Partial Thromboplastin Time Stat Lab 12/19/24 06:15 Received Prothrombin Time with INR Stat Lab 12/19/24 06:15 Received Troponin I Stat Lab 12/19/24 06:15 Received Urinalysis, C/S if Indicated Stat Lab 12/19/24 05:18 Ordered Aspirin Med 12/19/24 06:23 Discontinued 325 mg PO X1 ONE Labetalol IV [Trandate IV] Med 12/19/24 05:18 Active 10 mg IVP Q15M PRN Ondansetron Inj [Zofran Inj] Med 12/19/24 05:18 Active 4 mg IVP Q4HR PRN Oxygen Delivery NOW RT 12/19/24 05:18 Active Vital Signs Vital signs: Vital Signs Temperature 97.7 F 12/19/24 05:19 Pulse Rate 99 12/19/24 05:19 Respiratory Rate 18 12/19/24 05:19 Blood Pressure 118/79 12/19/24 05:19 Pulse Oximetry (%) 95 12/19/24 05:19 Oxygen Delivery Method Room Air 12/19/24 05:19 Critical Care Time Critical Care Time Critical Care Time: Yes Total Critical Care Time (min.): 45 Attestation: The high probability of sudden, clinically significant deterioration in the patient?s condition required the highest level of my preparedness to intervene urgently. The services I provided to this patient were to treat and/or prevent clinically significant deterioration. Services included the following: chart data review, reviewing nursing notes and/or old charts, documentation time, dairy consultant collaboration regarding findings and treatment options, medication orders and management, direct patient care, vital sign assessments and ordering, interpreting and reviewing diagnostic studies and lab tests. Aggregate critical care time includes only time during which I was engaged in work directly related to the patient?s care, as described above, whether at bedside or elsewhere in the Emergency Department. It did not include time spent performing other reported procedures or the services of residents, students, nurses or physician assistants. Discharge Plan Plan Patient Disposition: Admit Acute Care w/in Hospital Prescriptions/Referrals Prescriptions/Med Rec: No Action Eliquis 5 mg tablet 5 mg PO BID Qty: 60 0RF furosemide 40 mg tablet 40 mg PO DAILY Patient Comments: TAKE 1 TABLET BY MOUTH EVERY DAY Linzess 290 mcg capsule 290 mcg PO DAILY tamsulosin 0.4 mg capsule 0.4 mg PO DAILY Patient Comments: TAKE 2 CAPSULES BY MOUTH EVERY DAY magnesium 250 mg tablet 250 mg PO QDAY spironolactone 25 mg tablet 25 mg PO QDAY mecobalamin (vitamin B12) [B12 Active] 1,000 mcg tablet,chewable 1,000 mcg PO QDAY Referrals: Temporary Provider,ED [Primary Care Provider] - In 1 week Problem List Clinical Impression: Acute CVA (cerebrovascular accident) Impression comment: Ac CVA Patient/Caregiver Discharge Instructions Additional Instructions: Patient will require admission to telemetry [facility] for further evaluation monitoring treatment. Print Language: [place] Stand Alone Forms: Sherrie Award Info., Patient Portal Info Letter MDM Narrative [facility] hospital course: Scribe Attestation: 12/19/24 Klaudia Sanchez am scribing for and in the presence of Dr. Burnette. 69yo male who is pending cardiac surgery, recently off Eliquis presents after LKWT 2029, found this morning at 0430 with noted left-sided facial weakness and dysarthria. Patient presents to the ED with suspected CVA. Patient enrolled in stroke protocol upon arrival to ED. Currently pending routine CT head and CTA head/neck scans. Will formulate disposition based upon radiographic findings and clinical status. Case discussed with the teleneurologist, who does not recommend tPA due to being outside of the time window nor restarting Eliquis until MRI is performed. Patient with NIH score of 3 in controlled aFib. Will institute aspirin therapy by providing full dose at this time and baby dose thereafter. Hospitalist consulted and will admit the patient. Clinical Information Provided by patient Medical Records Reviewed [facility] (Per chart review, patient was seen here on 11/09/24 for paresthesia of finger.) Meds/Rx Considered, not Ordered None Labs/Rad/Tests considered, not Ordered None Chronic Illness/Social Conditions Add or document further as needed: Hx aFib, HTN EKG EKG Interpretation narrative: EKG done at 0602, aFib, rate of 86, no acute pathological ST segment changes, no ectopy, normal intervals, left axis deviation, according to my interpretation. Lab Interpretation Labs: interpreted by me Imaging Imaging interpretation: interpreted by me Radiology reports / interpretation(s): Telerad Preliminary Report Draft Patient: JUNIOR HUBBARD. Record#: [id number] Birthdate: 1955 Age/Sex: 69 / M Location: [facility] Attending Dr: Ordering Physician: Date of Service: Procedure(s): Accession Number(s): cc: ~ CT scan of the head without intravenous contrast (axial sections with sagittal and coronal reformats) December 19, 2024 05:31 hours Clinical history: Focal neuro deficit, stroke suspected. Comparison: No prior study is available for comparison. Findings: There is no evidence of intracranial hemorrhage, mass effect, or midline shift. There is focal encephalomalacia in the right occipital lobe, consistent with chronic infarct. There are patchy periventricular white matter hypodensities, compatible with chronic small vessel ischemia. There is mild to moderate volume loss. There is atheromatous calcification of the intracranial arteries. The calvarium is unremarkable. The mastoid air cells and the visualized paranasal sinuses are clear. Impression: 1. No evidence of intracranial hemorrhage, mass effect, or midline shift. 2. Periventricular chronic small vessel ischemia and volume loss. 3. Other findings as described above. Discussion Details: Results verbally communicated to : Dr. Manley at 05:43 AM 12/19/2024 Report Electronically Signed By: Todd Payton 12/19/2024 5:57:04 AM [EST] Medication Administration(s) Medication Administration History Labetalol HCl (Labetalol Inj 5 Mg/Ml Vial 20 Ml) 10 mg IVP Q15M PRN PRN Reason: HYPER Ondansetron HCl (Ondansetron Inj 2 Mg/Ml Inj 2 Ml) 4 mg IVP Q4HR PRN PRN Reason: NAUSEA OR VOMITING Stop: 01/18/25 05:17 Discontinued Medications Aspirin (Aspirin 325 Mg Tablet) 325 mg PO X1 ONE Stop: 12/19/24 06:24 Last Admin: 12/19/24 06:28 Dose: 325 mg Documented By: GINETTE see above Consultations/Discussions re: Management Consult #1: Date/time: 12/19/24 6:15 am Physician, specialty, service, details: Discussed case with Dr. harrison from [] regarding []. Discussed patients ED course, exam findings, labs, and radiology results. Does not recommend restarting Eliquis until MRI is performed. Recommends admitting the patient for stroke work-up, administering full dose aspirin, and then baby dose thereafter. Consult #2: Date/time: 12/19/24 6:20 am Physician, specialty, service, details: Discussed case with Dr. Mckeon, the resident physician, attending Dr. Huang from Hospitalist service regarding admission. Discussed patients ED course, exam findings, labs, and radiology results. The Hospitalist agrees to accept the patient for admission. Diagnosis Differential diagnosis: CVA, TIA, ICH Most likely dx, and/or detailed dx discussion: see clinical impression above Dispositon Disposition: Admit
[2024-12-19 05:48] LABS: Basophils # (Auto) 0.0 Thou/mm3 (0.0-0.2); Basophils % (Auto) 1 % (0-2.5); Eosinophils # (Auto) 0.1 Thou/mm3 (0.0-0.5); Eosinophils % (Auto) 1 % (0-10); Hematocrit 45.5 % (41.0-53.0); Hemoglobin 15.0 g/dL (13.5-16.0); Immature Granulocytes Auto 0.06 Thou/mm3 (0.00-0.00); Lymphocytes # (Auto) 1.2 Thou/mm3 (1.0-4.8); Lymphocytes % (Auto) 14 % (10-50); Mean Corpuscular HGB Conc 33.0 g/dl (31.0-37.0); Mean Corpuscular Hemoglobin 28.2 pg (25.0-35.0); Mean Corpuscular Volume 86 fL (80-100); Monocytes # (Auto) 0.8 Thou/mm3 (0.0-0.8); Monocytes % (Auto) 9 % (0-12); Neutrophils # (Auto) 6.3 Thou/mm3 (1.8-7.7); Neutrophils % (Auto) 75 % (37-80); Nucleated Red Blood Cell # 0.00 Thou/mm3 (0.00-0.00); Nucleated Red Blood Cell % 0 /100 WBC (0); Platelet Count 417 Thou/mm3 (140-440); RDW Standard Deviation 45.4 fL (35.1-43.9); Red Blood Count 5.32 Miln/mm3 (4.50-5.90); White Blood Count 8.4 Thou/mm3 (3.8-10.6)
--- NOTE | 2024-12-19 05:57 | PRELIM_ITS ---
CT scan of the head without intravenous contrast (axial sections with sagittal and coronal reformats) December 19, 2024 05:31 hours Clinical history: Focal neuro deficit, stroke suspected. Comparison: No prior study is available for comparison. Findings: There is no evidence of intracranial hemorrhage, mass effect, or midline shift. There is focal encephalomalacia in the right occipital lobe, consistent with chronic infarct. There are patchy periventricular white matter hypodensities, compatible with chronic small vessel ischemia. There is mild to moderate volume loss. There is atheromatous calcification of the intracranial arteries. The calvarium is unremarkable. The mastoid air cells and the visualized paranasal sinuses are clear. Impression: 1. No evidence of intracranial hemorrhage, mass effect, or midline shift. 2. Periventricular chronic small vessel ischemia and volume loss. 3. Other findings as described above. Discussion Details: Results verbally communicated to : Dr. Manley at 05:43 AM 12/19/2024 Report Electronically Signed By: Todd Payton 12/19/2024 5:57:04 AM [EST]
--- NOTE | 2024-12-19 06:03 | PC.NURSE ---
tele neuro dr. laura whitlock assessed pt. pt was brought in by son for left side drop, weakness, and slur speech. LKWT was 2030 12/18/2024. pts blood sugar 138. pts son states that pt was fine when he went to bed. pt woke up around 0400 12/19/2024 and woke up son about taking pills. son noticed slur speech and went to ed. dr. whitlock tele neuro and this rn performed an nihss. this rn got an 8 on stroke scale. pts son states the pt had a previous stroke in the past. pt had a minor left side drop. pt had some right and left side deficits including sensation and drift. pt has a history of a fib and is supposed to have a 3x bypass on the 27 of december. per pts son pt had stop taking blood thinners around 1weak ago
--- NOTE | 2024-12-19 06:21 | ESCONSULT_ITS ---
Tele Neuro Consultation Consultation Date 12/19/24 Most Recent Vital Signs Last Vital Signs Temp 97.7 F 12/19/24 05:19 Pulse 98 12/19/24 05:54 Resp 18 12/19/24 05:54 BP 118/79 12/19/24 05:19 Pulse Ox 95 12/19/24 05:19 O2 Del Method Room Air 12/19/24 05:19 Consultation Narrative [facility] Tele[facility]urology Consult Services Patient Name:???Tawanda Mireles Date of :???1955 Identification Number:??? Date of Service:???12/19/2024 05:19:44 Diagnosis:?I63.89 - Cerebrovascular accident (CVA) due to other mechanism (HCCC) Impression: ?69 yo RH M with PMH of afib (not on anticoagulation with eliquis for scheduled CABG), DVT, HTN, CKD, presents to ED with slurred speech and left sided facial droop. ?NIHSS of 5 due to confusion, left sided facial droop, right sided sensation deficit, RUE drift, and mild aphasia. ?CTH without hemorrhage, notable for left occipital encephalomalacia. ?CTA head and neck pending. ?Outside thrombolytic window. ?Syndrome is most concerning for acute ischemic stroke. ?Recommend holding anti coagulation, initiating aspirin 325mg now/MD, and admission for stroke workup. Our recommendations are outlined below. Recommendations: ? Stroke/Telemetry Floor ? Neuro Checks (Q4) ? Bedside Swallow Eval ? DVT Prophylaxis ? IV Fluids, Normal Saline ? Euglycemia and Avoid Hyperthermia (PRN Acetaminophen) ? Hold Anticoagulation for Now ? Initiate or continue Aspirin 325 MG daily ? Antihypertensives PRN if Blood pressure is greater than 220/120 or there is a concern for End organ damage/contraindications for permissive HTN. If blood pressure is greater than 220/120 give labetalol PO or IV or Vasotec IV with a goal of 15% reduction in BP during the first 24 hours. Sign Out: ? Discussed with Emergency Department Provider Advanced Imaging:CTA Head and Neck Completed. LVO:No Patient is not a candidate for ANN Metrics: Last Known Well: 12/18/2024 20:30:15 Dispatch Time: 12/19/2024 05:19:44 Arrival Time: 12/19/2024 05:14:15 Initial Response Time: 12/19/2024 05:23:32Symptoms: left side droop. Initial patient interaction: 12/19/2024 05:41:48 NIHSS Assessment Completed: 12/19/2024 06:02:09Patient is not a candidate for Thrombolytic. Thrombolytic Medical Decision: 12/19/2024 06:02:09Patient was not deemed candidate for Thrombolytic because of following reasons: LKW outside 4.[address] Head: I personally reviewed all the CT images that were available to me and it showed: no hemorrhage Primary Provider Notified of Diagnostic Impression and Management Plan on: 12/19/2024 06:20:33 History of Present Illness:Patient is a 69 year old Male. Patient was brought by private transportation with symptoms of left side droop. 69 yo RH M with PMH of afib (not on anticoagulation for scheduled CABG), DVT, HTN, CKD, presents to ED with slurred speech and left sided facial droop. Patient denies recent illness, fever, MCDEROMTT, trauma. He ambulates independently at baseline. He has been holding his blood thinner due to a CABG next week. Son noticed patient was up this morning acting confused, and he noticed a left side facial droop. He has been told he had a stroke before based on a CT scan in preparation for the CABG, but has never had stroke symptoms before. ? Past Medical History: ?Hypertension ?Atrial Fibrillation ?Coronary Artery Disease ?Stroke Medications: No Anticoagulant use? No Antiplatelet use Reviewed EMR for current medications Allergies:? NKDA Social History: Smoking: No Alcohol Use: No Family History: There is no family history of premature cerebrovascular disease pertinent to this consultation ROS : 14 Points Review of Systems was performed and was negative except mentioned in HPI. Past Surgical History: There Is No Surgical History Contributory To Today?s Visit ? Examination: BP(105/82),?Pulse(99),?Blood Glucose(108) 1A: Level of Consciousness - Alert; keenly responsive?+ 0 1B: Ask Month and Age - 1 Question Right?+ 1 1C: Blink Eyes & Squeeze Hands - Performs Both Tasks?+ 0 2: Test Horizontal Extraocular Movements - Normal?+ 0 3: Test Visual Tang - No Visual Loss?+ 0 4: Test Facial Palsy (Use Grimace if Obtunded) - Partial paralysis (lower face)? + 2 5A: Test Left Arm Motor Drift - No Drift for 10 Seconds?+ 0 5B: Test Right Arm Motor Drift - Drift, but doesn't hit bed?+ 1 6A: Test Left Leg Motor Drift - No Drift for 5 Seconds?+ 0 6B: Test Right Leg Motor Drift - Drift, but doesn't hit bed?+ 1 7: Test Limb Ataxia (FNF/Heel-Scott) - No Ataxia?+ 0 8: Test Sensation - Mild-Moderate Loss: Less Sharp/More Dull?+ 1 9: Test Language/Aphasia - Normal; No aphasia?+ 0 10: Test Dysarthria - Normal?+ 0 11: Test Extinction/Inattention - No abnormality?+ 0 NIHSS Score:?6 NIHSS Free Text :?right side of the face sensation deficit Pre-Morbid Modified Renville Scale:1 Points = No significant disability despite symptoms; able to carry out all usual duties and activities Spoke with :?Dr. Valadez This consult was conducted in real time using interactive audio and video technology. Patient was informed of the technology being used for this visit and agreed to proceed. Patient located in hospital and provider located at home/office setting. Patient is being evaluated for possible acute neurologic impairment and high probability of imminent or life-threatening deterioration. I spent total of 51 minutes providing care to this patient, including time for face to face visit via telemedicine, review of medical records, imaging studies and discussion of findings with providers, the patient and/or family. Dr Maile Ling [facility] For Inpatient follow-up with [facility] physician please call [facility] at . As we are not an outpatient service for any post hospital discharge needs please contact the hospital for assistance. If you have any questions for the [facility] physicians or need to reconsult for clinical or diagnostic changes please contact us via [facility] at . Signature :Federico Ling
--- NOTE | 2024-12-19 06:29 | PRELIM_ITS ---
CT angiogram of the head and neck with intravenous contrast (axial sections with sagittal and coronal reformats) December 19, 2024 at 0532 hours Clinical History: Focal neuro deficit, stroke suspected. Comparison: No prior study is available for comparison. Findings: Head: The intracranial segments of the internal carotid arteries are patent with diffuse atheromatous calcification. The middle and anterior cerebral arteries are patent bilaterally. The intracranial vertebral arteries are patent. The vertebrobasilar junction, basilar and posterior cerebral arteries are patent. No evidence of large vessel occlusion, critical stenosis or aneurysm. Neck: The aortic arch to the extent visualized as well as the origins of the right brachiocephalic, left common carotid, and left subclavian arteries are patent. The common carotid arteries are patent bilaterally. The carotid bulbs, and proximal internal and external carotid arteries are patent with atheromatous calcification causing no significant stenosis. The origins of the vertebral arteries are patent. There is atheromatous calcification at the origin of the right vertebral artery causing mild to moderate stenosis. The vertebral arteries are co-dominant. No evidence of vascular occlusion, critical stenosis, dissection or aneurysm. The visualized lungs are clear. The soft tissues of the neck are unremarkable. Degenerative changes are identified in the spine. Old fractures of the left 3rd and 4th ribs. Impression: Head: No evidence of large vessel occlusion, critical stenosis or aneurysm. Neck: No evidence of vascular occlusion, critical stenosis, dissection or aneurysm. Other findings as described above. Discussion Details: Results verbally communicated to : Dr. Perez at 06:13 AM 12/19/2024 Report Electronically Signed By: Todd Payton 12/19/2024 6:28:24 AM [EST]
[2024-12-19 06:47] LABS: INR 1.1 (0.9-1.3); Partial Thromboplastin Time 34.4 Seconds (22.0-36.0); Prothrombin Time 12.4 Seconds (9.0-12.2)
[2024-12-19 06:52] LABS: Alanine Aminotransferase 13 U/L (10-49); Albumin, Serum 3.9 gm/dL (3.4-4.8); Albumin/Globulin Ratio 1.5 (1.2-2.2); Alkaline Phosphatase 72 U/L (46-116); Anion Gap 7 (7-16); Aspartate Amino Transferase 19 U/L (0-34); BUN/Creatinine Ratio 18 Ratio (12-20); Bilirubin,Total 0.9 mg/dL (0.3-1.2); Blood Urea Nitrogen 28 mg/dL (9-23); Calcium 9.9 mg/dL (8.3-10.6); Calcium (Corrected) 10.0 mg/dL (8.5-10.1); Carbon Dioxide 26.6 mMol/L (20.0-31.0); Chloride 99 mMol/L (98-107); Creatinine (Component) 1.6 mg/dL (0.6-1.3); Estimated Creatinine Clearance 49.9 mL/min (>60); Globulin 2.6 gm/dL (2.3-3.5); Glucose 135 mg/dL (74-106); Magnesium 2.0 mg/dL (1.6-2.6); Osmolality,Calculated 273 (275-295); Potassium 4.0 mMol/L (3.4-5.1); Sodium 133 mMol/L (136-145); Total Protein 6.5 gm/dL (5.7-8.2); Troponin I 0.040 ng/mL (0.0-0.045); eGFR 46 See Note
--- NOTE | 2024-12-19 12:08 | PD.RESHP ---
Documentation for date of: 12/19/24 [facility] History of Present Illness Chief complaint: Stroke History of present illness: Tawanda Mireles is a 69-year-old male with past medical history significant for A-fib (not on anticoagulation medication of Eliquis for scheduled CABG December 27), DVT, hypertension, CKD, BPH, thoracic aortic aneurysm 4.0 cm (September 2024) presented with slurred speech and left-sided facial droop, confusion, right-sided sensory loss, right upper extremity drift with NIHSS score of 5, admitted for management of stroke. Patient was accompanied by his son who helped tell the history. They stated that when he woke up this morning he started to talk to his son and the son immediately recognized that he was slurring his speech and had left sided facial droop along with being confused and having difficulty with his equilibrium. The son states that this is never happened before to him, though he said he remembered a previous CT showing a previous stroke in preparation for the CABG before this. Patient's primary care doctor is Dr. Gavin. On review of systems, patient endorsed constipation and ~20 pound weight loss in the last month or so due to water pill. Patient denied having fever, chest pain, shortness of breath, abdominal pain, nausea, vomiting, diarrhea. Past Medical History: above Family History: Hypertension, diabetes Surgical History: Surgeries on his knee and shoulder Social History: Patient endorses history of many years of alcohol use, stopped months ago; patient denies any tobacco or recreational drug use. Current Medications: Tamsulosin 0.42 times per day, B12 1000 mcg daily daily, Lasix 40 mg Tuesday 2 times per day, Ativan at night, magnesium 200 150 mg/day, spironolactone 25 mg once per day, Eliquis 5 mg currently being held, Linzess 290 mcg once per day Allergies: No known drug allergies ED Course: -Vitals on admission showed temperature of 97.7 pulse of 98, respiratory rate 18, blood pressure 118/79, oxygen saturation of 95% on room air -Labs significant for Sodium 133, BUN 28, creatinine 1.6, glucose 135, BNP 615 -Imaging included CT head showed no hemorrhage, showed left occipital encephalomalacia. Chest x-ray showed 8 mm right upper lobe pulmonary nodule. Head neck CTA showed 40 to 60% stenosis of right carotid bifurcation, no large vessel occlusions. -In the ED, patient was given Aspirin 325 mg x 1 -Patient was admitted for stroke Review of Systems Review of systems otherwise negative except what is mentioned above. Exam Vital Signs Temp Pulse Resp BP Pulse Ox O2 Del Method 97.2 F 76 18 107/74 98 Room Air 12/19/24 08:02 12/19/24 08:02 12/19/24 08:02 12/19/24 08:02 12/19/24 08:02 12/19/24 08:02 Narrative Exam General: No acute distress; A&Ox3 Skin: Warm, dry, intact, no obvious rash. HENT: NCAT, EOMI, not icteric. External ears normal. No rhinorrhea. Moist mucous membranes Cardiovascular: Regular rate and rhythm, no murmur, +S1/S2. Respiratory: Lungs CTAB GI: Soft, nontender, non-distended. No guarding or rebound tenderness. Extremities: trace bilateral lower extremity edema, no cyanosis, no clubbing. Extremity pulses present Neuro: 4/5 R sided strength lower extremities, sensation intact/equal, L sided facial droop, RUE pronator drift Psychiatric: Cooperative, appropriate affect. Results: Labs 12/20/24 05:25 12/20/24 05:25 Labs: Short CBC 12/19/24 Range/Units 05:35 WBC 8.4 (3.8-10.6) Thou/mm3 Hgb 15.0 (13.5-16.0) g/dL Hct 45.5 (41.0-53.0) % Plt Count 417 D (140-440) Thou/mm3 BMP 12/19/24 06:15 Sodium 133 L Potassium 4.0 Chloride 99 Carbon Dioxide 26.6 BUN 28 H Creatinine 1.6 H Glucose 135 H Calcium 9.9 Cardiac Enzymes 12/19/24 Range/Units 06:15 Troponin I 0.040 (0.0-0.045) ng/mL Liver Function 12/19/24 Range/Units 06:15 Total Bilirubin 0.9 (0.3-1.2) mg/dL AST 19 (0-34) U/L ALT 13 (10-49) U/L Alkaline Phosphatase 72 (46-116) U/L Albumin 3.9 (3.4-4.8) gm/dL Quality Measures Quality Measures stroke Suspected type of Stroke: Unknown at this time Tenecteplase given: Reason(s) Tenecteplase not given: Outside the time window not given Rehab services: PT evaluation ordered and Speech Language Pathology eval ordered VTE Prophylaxis: mechanical Antithrombotic by day 2:: not indicated (describe) (post stroke) Statin ordered: <75 y/o high intensity dose Anticoagulation ordered for A-fib or flutter (current or hx): contraindicated (holding post stroke) Advance care planning discussed with:: patient and other Medications Home Medications and Allergies Home Medications ?Medication ?Instructions ?Recorded ?Confirmed ?Type furosemide 40 mg tablet 40 mg PO DAILY 10/07/24 12/19/24 History linaclotide 290 mcg capsule 290 mcg PO DAILY 10/07/24 12/19/24 History (Linzess) magnesium 250 mg tablet 250 mg PO QDAY 10/31/24 12/19/24 History mecobalamin (vitamin B12) 1,000 1,000 mcg PO QDAY 10/31/24 12/19/24 History mcg chewable tablet (B12 Active) spironolactone 25 mg tablet 25 mg PO QDAY 10/31/24 12/19/24 History tamsulosin 0.4 mg capsule 0.4 mg PO DAILY 11/02/24 12/19/24 History Allergies Allergy/AdvReac Type Severity Reaction Status Date / Time No Known Allergies Allergy Verified 11/09/24 09:05 Visit Medications Labetalol HCl (Labetalol Inj 5 Mg/Ml Vial 20 Ml) 10 mg IVP Q15M PRN PRN Reason: SBP >220 Ondansetron HCl (Ondansetron Inj 2 Mg/Ml Inj 2 Ml) 4 mg IVP Q4HR PRN PRN Reason: NAUSEA OR VOMITING Stop: 01/18/25 05:17 Discontinued Medications Aspirin (Aspirin 325 Mg Tablet) 325 mg PO X1 ONE Stop: 12/19/24 06:24 Last Admin: 12/19/24 06:28 Dose: 325 mg Labetalol HCl (Labetalol Inj 5 Mg/Ml Vial 20 Ml) 10 mg IVP Q15M PRN PRN Reason: HYPER Assessment & Plan Plan Tawanda Mireles is a 69-year-old male with past medical history significant for A-fib (not on anticoagulation medication of Eliquis for scheduled CABG December 27), DVT, hypertension, CKD, BPH, thoracic aortic aneurysm 4.0 cm (September 2024) presented with slurred speech and left-sided facial droop, confusion, right-sided sensory loss, right upper extremity drift with NIHSS score of 5, admitted for management of stroke. #Acute Stroke Likely acute ischemic stroke given time frame, risk factors, imaging negative for hemorrhage, negative for embolic source (will need bubble study) Presented with NIHSS of 5 due to confusion, left sided facial droop, right sided sensation deficit, RUE drift, and mild aphasia. Son noted previous CT showing a previous stroke in preparation for the CABG CTH without hemorrhage, notable for left occipital encephalomalacia; CTA head and neck pending; Outside thrombolytic window. -MRI, echo bubble study ordered -speech & pt referred -gave aspirin 325 mg po qd, started atorvastatin 40 mg po hs -labetalol 10 mg iv prn Neurology Consulted, recs below ? Stroke/Telemetry Floor ? Neuro Checks (Q4) ? Bedside Swallow Eval ? DVT Prophylaxis ? Euglycemia and Avoid Hyperthermia (PRN Acetaminophen) ? Hold Anticoagulation for Now ? Initiate or continue Aspirin 325 MG daily ? Antihypertensives PRN if Blood pressure is greater than 220/120 or there is a concern for End organ damage/contraindications for permissive HTN. If blood pressure is greater than 220/120 give labetalol PO or IV or Vasotec IV with a goal of 15% reduction in BP during the first 24 hours #Atrial fibrillation Home medication of Eliquis, being held since last week for CABG scheduled for December 27. Comfort need for amiodarone per Dr. Perez. 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 Cr on admission 1.6, baseline appears to be ~1.5. -will continue to monitor cmp #Ascending thoracic aortic aneurysm #History of mitral regurgitation Chest CTA from 10/07/2024 showed Mild aneurysmal dilatation ascending thoracic aorta AP dimension 4.[address] Perez - no need for any intervention at this point for mitral regurgitation as of September 2024 BNP elevated at 615, possibly due to mitral regurgitation, suspected as possible cause for previous bnp elevation earlier this year. -Will monitor for chest/back pain, hemodynamics. #History of hypertension Patient on home med of Lasix 40 mg x2/day MWF and spironolactone 25 mg qd -will monitor blood pressure, specific relevant management above -considering starting home meds after meds reconciled. # Diet-controlled diabetes. No home medication, lifestyle controlled A1c 5.6 as of 09/28/2024 #BPH Patient's home medication of Tamsulosin 0.4 mg 2x/day -will monitor urine output Hospital Management: Disposition: Tele Diet: dysphagia 2 GI Prophylaxis: protonix 40 mg qd Bowel Prophylaxis: Senna, Dulcolax prn's DVT Prophylaxis: SCD's CODE STATUS: FULL CODE Patient plan of care was discussed with the attending physician, Dr. Ness De Souza MD PGY-1 Attending Provider Attestation/Addendum I reviewed labs, imaging, EKG, home medications and prior available records. Face to face evaluation was performed by me. I have personally examined the patient and discussed assessment and plan with the IM team. I reviewed the resident note and agree with the plan with exceptions as below. Non-STEMI, likely type I Chest pain at rest Uncontrolled hypertension Type 2 diabetes mellitus Started aspirin and atorvastatin Started heparin drip Trend troponin Ordered echocardiogram Consults cardiology: Will plan for cardiac catheterization
[2024-12-19 13:27] LABS: Collection Type, Urine Clean Catch
[2024-12-19 13:31] LABS: Bilirubin,Urine Negative (Negative); Blood,Urine Negative (Negative); Clarity,Urine Clear (Clear/Hazy); Color,Urine Lt-Yellow (Lt Yel-Yel); Culture Indicated,Urine Not Indicated; Glucose, Urine 1+ (Negative); Ketones,Urine Negative (Negative); Leukocyte Esterase,Urine Negative (Negative); Nitrite,Urine Negative (Negative); PH,Urine 6.0 (5.0-7.0); Protein,Urine Negative (Neg - Trace); RBC,Urine 1 /hpf (0-3); Specific Gravity,Urine 1.035 (1.001-1.035); Squamous Epithelial Cell,Urine < 1 /hpf (0-5); Urobilinogen,Urine Negative mg/dL (0.0-1.0); WBC,Urine 1 /hpf (0-5)
[2024-12-19 13:38] LABS: Amphetamine/Methamp Scrn,U Negative (Negative); Barbiturate Screen,Urine Negative (Negative); Benzodiazepines Screen,Urine Negative (Negative); Benzoylecgonine Screen, Ur Negative (Negative); Fentanyl Screen,Urine Negative (Negative); Opiate Screen,Urine Negative (Negative); THC Screen,Urine Negative (Negative)
--- NOTE | 2024-12-19 13:43 | ECHO_ITS ---
Transthoracic Echo Report Ht (in): 70 Wt (lb): 205 Exam Location: Echo Lab Status: Inpatient Vessel Welder: Crystal Walker Indications: Procedure Performed: BP: 101 / 64 HR: 86 Technical Quality: Technically difficult study MEASUREMENTS (Male / Female) Normal Values 2D ECHO LV Diastolic Diameter PLAX 6.6 cm 4.2 - 5.9 / 3.9 - 5.3 cm LV Systolic Diameter PLAX 5.6 cm IVS Diastolic Thickness 1.0 cm 0.6 - 1.0 / 0.6 - 0.9 cm LVPW Diastolic Thickness 1.1 cm 0.6 - 1.0 / 0.6 - 0.9 cm LV Relative Wall Thickness 0.3 LVOT Diameter 2.3 cm Aortic Root Diameter 3.6 cm LA Systolic Diameter LX 4.6 cm 3.0 - 4.0 / 2.7 - 3.8 cm LV Ejection Fraction MOD BP 25.6 % >= 55 % LV Cardiac Index MOD BP 1986.1 cm?/min?m? LV Ejection Fraction MOD 4C 40.4 % LV Cardiac Index MOD 4C 3336.7 cm?/min?m? LV Ejection Fraction 4C AL 41.8 % LV Cardiac Index 4C AL 3621.7 cm?/min?m? LV Ejection Fraction MOD 2C 17.4 % LV Cardiac Index MOD 2C 1271.1 cm?/min?m? LV Ejection Fraction 2C AL 17.1 % LV Cardiac Index 2C AL 1276.5 cm?/min?m? LA Volume Index 30.6 cm?/m? 16 - 28 cm?/m? DOPPLER AV Peak Velocity 99.7 cm/s AV Peak Gradient 4.0 mmHg AV Mean Gradient 1.0 mmHg AV Velocity Time Integral 13.6 cm AI Peak Velocity 404.0 cm/s AI Peak Gradient 65.3 mmHg AI Pressure Half Time 1087.0 ms LVOT Peak Velocity 88.7 cm/s LVOT Peak Gradient 3.1 mmHg LVOT Velocity Time Integral 16.6 cm LVOT Cardiac Index 2739.6 cm?/min?m? AV Area Cont Eq vti 5.1 cm? AV Area Cont Eq pk 3.7 cm? MR Peak Velocity 413.7 cm/s MR Peak Gradient 68.4 mmHg LV E' Lateral Velocity 7.3 cm/s LV E' Septal Velocity 5.4 cm/s FINDINGS Left Ventricle Normal left ventricular size, wall thickness. Normal left ventricular diastolic filling pattern for age. The ejection fraction is visually estimated at 35-40%. Global left ventricular systolic function is moderately decreased. Right Ventricle The right ventricle is normal in size and systolic function. Left Atrium The left atrium is normal by two-dimensional, color flow and Doppler imaging with no structural abnormalities, no thrombus formation present. Right Atrium The right atrium is normal by two-dimensional imaging, color flow and Doppler imaging with no structural abnormalities, no thrombus formation present. Atrial Septum The interatrial septum appears normal with no evidence of a shunt. Aorta The aorta is normal by two-dimensional, color flow and Doppler interrogation. Mitral Valve The mitral valve is normal by two-dimensional, color flow and Doppler interrogation. [id number] mitral regurgitation. Aortic Valve The aortic valve is trileaflet and normal by two-dimensional, color flow and Doppler interrogation. Moderate aortic valve regurgitation. Tricuspid Valve The tricuspid valve is normal by two-dimensional, color flow and Doppler interrogation. There is trace tricuspid valve regurgitation. Pulmonic Valve The pulmonic valve is not well visualized. There is no significant pulmonic valve regurgitation. Vessels The pulmonary artery appears normal. The inferior vena cava pulmonary and hepatic veins appear normal. Pericardium The pericardium is normal by two-dimensional imaging. There is no significant pericardial effusion. CONCLUSIONS Indication: Stroke Negative bubble study Normal LV size and wall thickness. Estimated EF at 35-40%. Global LV systolic function is moderately decreased. The RV is normal in size and systolic function. [id number] MR. mild aortic regurgitation Natalia Perez (Electronically Signed) Final Date: 25 December 2024 12:16
--- NOTE | 2024-12-19 15:10 | PC.NURSE ---
PT AMBULATED TO RESTROOM AT THIS TIME.
--- NOTE | 2024-12-19 15:23 | PC.SS ---
Patient is a 69 year old male presenting to the ED for stroke r/o. 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 Patient confirmed demographic information and stated that he lives at [address] [place] [address]. Patient?s son stated that if patient is not able to make medical decisions he would make them, patient was agreeable. Patient does not use DME, is retired, PCP is Dr. Gavin had appointment last week, pharmacy of choice is [facility]. Patients stated that once medically clear he would like to return home and his son will provide transportation. PCP: Dr. Gavin Decision maker: Tamia Mireles PH: [phone] D/C: home
--- NOTE | 2024-12-19 15:50 | PC.NURSE ---
PT TO MRI
--- NOTE | 2024-12-19 17:26 | PC.NURSE ---
report given to mila on tele floor. pt to go to room [id number]
[2024-12-19] MEDS: HEPARIN SOD INJ 5000 UNIT/ML VIAL SC (21:05)
[2024-12-19] MEDS: ATORVASTATIN CALCIUM 20 MG TABLET 40 MG PO (21:05)
--- NOTE | 2024-12-19 23:39 | PD.NEUROCONS ---
History of Present Illness Data of Consult Requesting Physician: Maulik Arzola MD Primary Care Provider: Clemente Gavin MD Consult Narrative cc:: cc: Maulik Arzola MD Meds Home Medications and Allergies Home Medications ?Medication ?Instructions ?Recorded ?Confirmed ?Type furosemide 40 mg tablet 40 mg PO DAILY 10/07/24 12/19/24 History linaclotide 290 mcg capsule 290 mcg PO DAILY 10/07/24 12/19/24 History (Linzess) magnesium 250 mg tablet 250 mg PO QDAY 10/31/24 12/19/24 History mecobalamin (vitamin B12) 1,000 1,000 mcg PO QDAY 10/31/24 12/19/24 History mcg chewable tablet (B12 Active) spironolactone 25 mg tablet 25 mg PO QDAY 10/31/24 12/19/24 History tamsulosin 0.4 mg capsule 0.4 mg PO DAILY 11/02/24 12/19/24 History Allergies Allergy/AdvReac Type Severity Reaction Status Date / Time No Known Allergies Allergy Verified 11/09/24 09:05 Exam - Neurology Vital Signs Temp Pulse Resp BP Pulse Ox O2 Del Method 97.5 F 105 H 18 116/48 L 97 Room Air 12/19/24 20:00 12/19/24 20:00 12/19/24 20:00 12/19/24 20:00 12/19/24 20:00 12/19/24 20:00 Results Labs 12/19/24 05:35 12/19/24 06:15 Labs: Short CBC 12/19/24 Range/Units 05:35 WBC 8.4 (3.8-10.6) Thou/mm3 Hgb 15.0 (13.5-16.0) g/dL Hct 45.5 (41.0-53.0) % Plt Count 417 D (140-440) Thou/mm3 BMP 12/19/24 06:15 Sodium 133 L Potassium 4.0 Chloride 99 Carbon Dioxide 26.6 BUN 28 H Creatinine 1.6 H Glucose 135 H Calcium 9.9 Cardiac Enzymes 12/19/24 Range/Units 06:15 Troponin I 0.040 (0.0-0.045) ng/mL Liver Function 12/19/24 Range/Units 06:15 Total Bilirubin 0.9 (0.3-1.2) mg/dL AST 19 (0-34) U/L ALT 13 (10-49) U/L Alkaline Phosphatase 72 (46-116) U/L Albumin 3.9 (3.4-4.8) gm/dL Urine 12/19/24 Range/Units 13:22 Urine Color Lt-Yellow (Lt Yel-Yel) Urine Clarity Clear (Clear/Hazy) Urine pH 6.0 (5.0-7.0) Ur Specific [place] 1.035 (1.001-1.035) Urine Protein Negative (Neg - Trace) Urine Glucose (UA) 1+ A (Negative)
[2024-12-20] VITALS (8 sets, daily range): BP systolic 92–106; BP diastolic 50–79; PULSE 64–99; RESP 14–97; TEMP 36.1–36.7; O2SAT 94–98; BMI 15.0
[2024-12-20 06:09] LABS: Basophils # (Auto) 0.1 Thou/mm3 (0.0-0.2); Basophils % (Auto) 1 % (0-2.5); Eosinophils # (Auto) 0.1 Thou/mm3 (0.0-0.5); Eosinophils % (Auto) 2 % (0-10); Hematocrit 42.8 % (41.0-53.0); Hemoglobin 14.0 g/dL (13.5-16.0); Immature Granulocytes Auto 0.08 Thou/mm3 (0.00-0.00); Lymphocytes # (Auto) 0.6 Thou/mm3 (1.0-4.8); Lymphocytes % (Auto) 10 % (10-50); Mean Corpuscular HGB Conc 32.7 g/dl (31.0-37.0); Mean Corpuscular Hemoglobin 28.4 pg (25.0-35.0); Mean Corpuscular Volume 87 fL (80-100); Monocytes # (Auto) 0.6 Thou/mm3 (0.0-0.8); Monocytes % (Auto) 9 % (0-12); Neutrophils # (Auto) 5.2 Thou/mm3 (1.8-7.7); Neutrophils % (Auto) 78 % (37-80); Nucleated Red Blood Cell # 0.00 Thou/mm3 (0.00-0.00); Nucleated Red Blood Cell % 0 /100 WBC (0); Platelet Count 454 Thou/mm3 (140-440); RDW Standard Deviation 45.9 fL (35.1-43.9); Red Blood Count 4.93 Miln/mm3 (4.50-5.90); White Blood Count 6.7 Thou/mm3 (3.8-10.6)
[2024-12-20 06:41] LABS: Alanine Aminotransferase 10 U/L (10-49); Albumin, Serum 3.6 gm/dL (3.4-4.8); Albumin/Globulin Ratio 1.6 (1.2-2.2); Alkaline Phosphatase 65 U/L (46-116); Anion Gap 11 (7-16); Aspartate Amino Transferase 13 U/L (0-34); BUN/Creatinine Ratio 17 Ratio (12-20); Bilirubin,Total 0.9 mg/dL (0.3-1.2); Blood Urea Nitrogen 22 mg/dL (9-23); Calcium 9.6 mg/dL (8.3-10.6); Calcium (Corrected) 9.9 mg/dL (8.5-10.1); Carbon Dioxide 25.5 mMol/L (20.0-31.0); Cardiac Risk Estimate 3.7 RATIO (4.0-6.7); Chloride 101 mMol/L (98-107); Cholesterol 136 mg/dL (132-200); Creatinine (Component) 1.3 mg/dL (0.6-1.3); Estimated Creatinine Clearance 61.7 mL/min (>60); Globulin 2.2 gm/dL (2.3-3.5); Glucose 108 mg/dL (74-106); HDL Cholesterol 37 mg/dL (40-60); LDL Cholesterol,Calculated 81 mg/dL (0-130); Magnesium 2.0 mg/dL (1.6-2.6); Osmolality,Calculated 278 (275-295); Phosphorous 2.8 mg/dL (2.4-5.1); Potassium 3.9 mMol/L (3.4-5.1); Sodium 137 mMol/L (136-145); Thyroid Stimulating Hormone 1.51 uIU/mL (0.55-4.78); Total Protein 5.8 gm/dL (5.7-8.2); Triglycerides 90 mg/dL (30-150); eGFR 59 See Note
[2024-12-20 07:07] LABS: Glucose Estimated Average 151 mg/dL (80-131); Hemoglobin A1C 6.9 % Hgb (4.8-6.0)
[2024-12-20] MEDS: SPIRONOLACTONE 25 MG TABLET PO (08:12)
[2024-12-20] MEDS: TAMSULOSIN HCL 0.4 MG CAPSULE PO (08:12)
[2024-12-20] MEDS: LINZESS 290 MCG CAPSULE PO (08:12)
[2024-12-20] MEDS: PANTOPRAZOLE 40 MG TABLET PO (08:12)
[2024-12-20] MEDS: HEPARIN SOD INJ 5000 UNIT/ML VIAL SC ×2 (08:13→20:08)
--- NOTE | 2024-12-20 08:47 | XR_ITS ---
Examination: Carotid arterial duplex scan, ultrasound. Date and time of exam: December 20, 2024 1123 hrs. Indications: 18 mm acute infarct right parietal lobe on MR brain study yesterday Technique: Multiple sonographic images have been obtained of the carotid arteries and vertebral arteries, B-mode/grayscale imaging and Doppler spectral analysis and color flow Peak systolic and diastolic velocities have been recorded. Systolic diastolic ratios have been calculated. Findings: Right peak systolic velocities: Distal internal carotid artery peak systolic velocity is 0.6 M/sec Proximal internal carotid artery peak systolic velocity is 0.6 M/sec Carotid bifurcation peak systolic velocity is 0.9 M/sec External carotid artery peak systolic velocity is 0.5 M/sec Vertebral artery flow is antegrade. Left peak systolic velocities: Distal internal carotid artery peak systolic velocity is 0.4 M/sec Proximal internal carotid artery peak systolic velocity is 0.4 M/sec Carotid bifurcation peak systolic velocity is 0.8 M/sec External carotid artery peak systolic velocity is 0.8 M/sec Vertebral artery flow is antegrade Doppler waveform analysis demonstrates no spectral broadening Impression: Right internal carotid artery demonstrates 0-10% stenosis. Left internal carotid artery demonstrates 0-10% stenosis.
--- NOTE | 2024-12-20 10:04 | PCS.ST ---
Swallowing evaluation completed. See report for details. No dysphagia. Advance to regular diet, cardiac restrictions.
[2024-12-20] MEDS: CLOPIDOGREL BISULFATE 75 MG TABLET PO (10:09)
--- NOTE | 2024-12-20 10:24 | ESCONSULT_ITS ---
HPI Data of Consult Consult date: 12/20/24 Requesting Physician: Maulik Arzola MD Admitting Provider: Maulik Arzola MD Attending Provider: Maulik Arzola MD Primary Care Provider: Clemente Gavin MD Consult Narrative Reason for consult: CKD Stage III History of present illness: per H and p and my interview of patient Tawanda Mireles is a 69-year-old male with past medical history significant for A- fib (not on anticoagulation medication of Eliquis for scheduled CABG December 27), DVT, hypertension, CKD, BPH, thoracic aortic aneurysm 4.0 cm (September 2024) presented with slurred speech and left-sided facial droop, confusion, right- sided sensory loss, right upper extremity drift with NIHSS score of 5, admitted for management of stroke. Patient was accompanied by his son who helped tell the history. They stated that when he woke up this morning he started to talk to his son and the son immediately recognized that he was slurring his speech and had left sided facial droop along with being confused and having difficulty with his equilibrium. The son states that this is never happened before to him, though he said he remembered a previous CT showing a previous stroke in preparation for the CABG before this. Patient's primary care doctor is Dr. Gavin. On review of systems, patient endorsed constipation and ~20 pound weight loss in the last month or so due to water pill. Patient denied having fever, chest pain, shortness of breath, abdominal pain, nausea, vomiting, diarrhea. ED Course: -Vitals on admission showed temperature of 97.7 pulse of 98, respiratory rate 18, blood pressure 118/79, oxygen saturation of 95% on room air -Labs significant for Sodium 133, BUN 28, creatinine 1.6, glucose 135, BNP 615 -Imaging included CT head showed no hemorrhage, showed left occipital encephalomalacia. Chest x-ray showed 8 mm right upper lobe pulmonary nodule. Head neck CTA showed 40 to 60% stenosis of right carotid bifurcation, no large vessel occlusions. -In the ED, patient was given Aspirin 325 mg x 1 12/19/2024: Admitted for stroke work up/rule out. Cr 1.6 CTA head and neck with 4 0-60% stenosis right carotid bifurcation origin right internal carotid artery. MRI brain, 18 mm acute infarct right parietal lobe 12/20/2024: Patient seen and examined at bedside. patient's friend seen at bedside. Cr 1.3, eGFR 59, Carotid doppler with no stenosis. ok to discharge from nephrology perspective, discharge pending per primary team cc:: cc: Maulik Arzola MD Review of Systems Review of Systems Narrative Review of Systems: CONSTITUTIONAL: Patient denies any fever, chills. Complaining of fatigue HEENT: Denies any visual disturbances or hearing problems. CARDIOVASCULAR: Patient denies any chest pain, shortness of breath, swelling in the lower extremities. PULMONARY: Patient denies any shortness of breath, cough. GASTROINTESTINAL: Patient denies any abdominal pain, constipation, nausea, vomiting, diarrhea. GENITOURINARY: Patient denies any urinary symptoms of burning or frequency or hematuria, denies any form in the urine. SKIN: Denies any rash. MUSCULOSKELETAL: Does have weakness NEUROLOGICAL: Denies any neurological problems of strokes, seizures or confusion. Denies any memory problems. PSYCHIATRIC: Denies any depression or anxiety. LYMPHATICS : No lymphadenopathy Constitutional Comments: as per hpi Past Medical History Past Medical History NEUROLOGIC: Negative Neurological Disorders, Cerebrovascular Accident or Seizures CARDIAC: Positive Atrial Fibrillation, Deep Vein Thrombosis and Hypertension; Negative Cardiac Disorders, Hypercholesterolemia or Congestive Heart Failure RESPIRATORY: Negative Respiratory Disorders, Chronic Obstructive Pulmonary Disease (COPD), Asthma or Sleep Apnea GASTROINTESTINAL: Positive Gastrointestinal Disorders and Obesity GENITOURINARY: Positive Renal Disease and Benign Prostatic Hyperplasia; Negative Genitourinary Disorders or Kidney Stones MUSCULOSKELETAL: Positive Fractures; Negative Musculoskeletal Disorders or Arthritis ENDOCRINE: Negative Endocrine Disorders, Diabetes Mellitus Type 1, Diabetes Mellitus Type 2 or Hyperthyroidism HEMATOLOGIC: Negative Blood Disorders, Anemia or Sickle Cell Disease PSYCHO/SOCIAL: Positive Anxiety OTHER HISTORY: Positive Measles; Negative Hospitalization, Down Syndrome, Developmental Delay, Falls, Blood Transfusions, Anesthesia Reactions or Cancer Surgical History SURGICAL: Positive Angiogram; Negative Ear Surgery Social History SMOKING STATUS: Never smoker SUBSTANCE USE: does not use Exam Vital Signs Temp Pulse Resp BP Pulse Ox O2 Del Method 97.0 F 78 20 97/68 94 L Room Air 12/20/24 08:00 12/20/24 08:12 12/20/24 08:00 12/20/24 08:12 12/20/24 08:00 12/20/24 08:00 Narrative Exam GENERAL: no acute distress, AAO x3, comfortably laying in bed HEENT: Head AT/ NC. Mucous membranes moist. PERRL. NECK: Supple, no lymphadenopathy, CARDIOVASCULAR: RRR. Normal S1/S2, No m/r/g. No pitting edema of bilateral LEs. RESPIRATORY: CTAB. No wheezing, rhonchi, crackles. GASTROINTESTINAL: Abdomen soft, non tender no palpable masses. Bowel sounds present MUSCULOSKELETAL:? No cyanosis or edema, no visible joint swelling. NEUROLOGICAL: CN not assessed. PSYCHIATRIC: Awake and alert, not agitated, normal mood and affect. SKIN: No obvious rashes, no jaundice, normal turgor. Results Labs 12/20/24 05:25 12/20/24 05:25 Labs: Short CBC 12/20/24 Range/Units 05:25 WBC 6.7 (3.8-10.6) Thou/mm3 Hgb 14.0 (13.5-16.0) g/dL Hct 42.8 (41.0-53.0) % Plt Count 454 H D (140-440) Thou/mm3 BMP 12/20/24 05:25 Sodium 137 Potassium 3.9 Chloride 101 Carbon Dioxide 25.5 BUN 22 Creatinine 1.3 Glucose 108 H Calcium 9.6 Liver Function 12/20/24 Range/Units 05:25 Total Bilirubin 0.9 (0.3-1.2) mg/dL AST 13 (0-34) U/L ALT 10 (10-49) U/L Alkaline Phosphatase 65 (46-116) U/L Albumin 3.6 (3.4-4.8) gm/dL Urine 12/19/24 Range/Units 13:22 Urine Color Lt-Yellow (Lt Yel-Yel) Urine Clarity Clear (Clear/Hazy) Urine pH 6.0 (5.0-7.0) Ur Specific [place] 1.035 (1.001-1.035) Urine Protein Negative (Neg - Trace) Urine Glucose (UA) 1+ A (Negative) Quality Measures Quality Measures stroke Suspected type of Stroke: Unknown at this time Last known well (date): 12/18/24 Last known well (time): 20:30 Tenecteplase given: Reason(s) Tenecteplase not given: Outside the time window not given Rehab services: PT evaluation ordered and Speech Language Pathology eval ordered VTE Prophylaxis: pharmaceutical Antithrombotic by day 2:: ordered Statin ordered: <75 y/o high intensity dose Anticoagulation ordered for A-fib or flutter (current or hx): ordered Advance care planning discussed with:: patient Medications Home Medications and Allergies Home Medications ?Medication ?Instructions ?Recorded ?Confirmed ?Type furosemide 40 mg tablet 40 mg PO DAILY 10/07/2411/24 History linaclotide 290 mcg capsule 290 mcg PO DAILY 10/07/24 12/19/24 History (Linzess) magnesium 250 mg tablet 250 mg PO QDAY 10/31/2411/24 History mecobalamin (vitamin B12) 1,000 1,000 mcg PO QDAY 01/1712/19/24 History mcg chewable tablet (B12 Active) spironolactone 25 mg tablet 25 mg PO QDAY 10/31/24 History tamsulosin 0.4 mg capsule 0.4 mg PO DAILY 11/02/24 History Allergies Allergy/AdvReac Type Severity Reaction Status Date / Time No Known Allergies Allergy Verified 11/09/24 09:05 Visit Medications Acetaminophen (Acetaminophen 325 Mg Tablet) 650 mg PO Q6H PRN PRN Reason: Fever >100 or pain 1-3 Stop: 01/18/25 13:03 Hydrocodone Bitart/Acetaminophen (Hydrocodone/Apap 5/325 Tablet) 1 tab PO Q4HR PRN PRN Reason: PAIN SCALE 4-6 (Moderate Stop: 12/24/24 13:03 Hydrocodone Bitart/Acetaminophen (Hydrocodone/Apap 10/325 Tab) 1 tab PO Q4HR PRN PRN Reason: PAIN SCALE 7-10 (Severe Stop: 12/24/24 13:03 Aspirin (Aspirin 81 Mg Chew) 81 mg PO DAILY [facility] Stop: 01/19/25 08:59 Last Admin: 12/20/24 10:07 Dose: Not Given Atorvastatin Calcium (Atorvastatin Calcium 20 Mg Tablet) 40 mg PO HS [facility] Stop: 01/18/25 20:59 Last Admin: 12/19/24 21:05 Dose: 40 mg Bisacodyl (Bisacodyl 5 Mg Tabec) 10 mg PO QDAY PRN; Protocol PRN Reason: CONSTIPATION Stop: 01/18/25 13:03 Clopidogrel Bisulfate (Clopidogrel Bisulfate 75 Mg Tablet) 75 mg PO QDAY [facility] Stop: 01/19/25 08:59 Last Admin: 12/20/24 10:09 Dose: 75 mg Linzess 290 Mcg (Capsule) 0 ea PO QDAY [facility] Stop: 01/19/25 08:59 Last Admin: 12/20/24 08:12 Dose: 1 capsule Dextrose (Dextrose 50%-Water Inj 50 Ml Syringe) 25 ml IV Q15MIN PRN PRN Reason: BG 50-70 responsive npo pt Stop: 01/19/25 08:49 Dextrose (Dextrose 50%-Water Inj 50 Ml Syringe) 50 ml IV Q15MIN PRN PRN Reason: BG <50 OR BG <70 & pt unresponsive Stop: 01/19/25 08:49 Furosemide (Furosemide 40 Mg Tablet) 40 mg PO DAILY [facility] Stop: 01/19/25 08:59 Last Admin: 12/20/24 08:12 Dose: 40 mg Glucagon (Glucagon Inj 1 Mg Vial) 1 mg IM Q15MIN PRN PRN Reason: BG <70, and no IV access Heparin Sodium (Porcine) (Heparin Sod Inj 5000 Unit/Ml Vial) 5,000 unit SC BID [facility] Stop: 01/02/25 20:59 Last Admin: 12/20/24 08:13 Dose: 5,000 unit Insulin Human Regular (Insulin Hum Regular 1 Unit/0.01 Ml (Per Unit)) 0 unit SC AC [facility]; Protocol Stop: 01/19/25 11:29 Labetalol HCl (Labetalol Inj 5 Mg/Ml Vial 20 Ml) 10 mg IVP Q15M PRN PRN Reason: SBP >220 Ondansetron HCl (Ondansetron Inj 2 Mg/Ml Inj 2 Ml) 4 mg IVP Q4HR PRN PRN Reason: NAUSEA OR VOMITING Stop: 01/18/25 05:17 Pantoprazole Sodium (Pantoprazole 40 Mg Tablet) 40 mg PO QDAY [facility] Stop: 01/19/25 08:59 Last Admin: 12/20/24 08:12 Dose: 40 mg Pharmacy Consult (Pharmacy Renal Dose Adjustment 1 Ea) 1 each XX PRN PRN PRN Reason: CONSULT Stop: 01/18/25 15:51 Sennosides (Senna Tablet) 1 tab PO QDAY PRN; Protocol PRN Reason: constipation Stop: 01/18/25 13:03 Spironolactone (Spironolactone 25 Mg Tablet) 25 mg PO QDAY [facility] Stop: 01/19/25 08:59 Last Admin: 12/20/24 08:12 Dose: 25 mg Tamsulosin HCl (Tamsulosin Hcl 0.4 Mg Capsule) 0.4 mg PO DAILY [facility] Stop: 01/18/25 15:59 Last Admin: 12/20/24 08:12 Dose: 0.4 mg Discontinued Medications Aspirin (Aspirin 325 Mg Tablet) 325 mg PO X1 ONE Stop: 12/19/24 06:24 Last Admin: 12/19/24 06:28 Dose: 325 mg Aspirin (Aspirin 325 Mg Tablet) 325 mg PO DAILY [facility] Stop: 01/19/25 08:59 Last Admin: 12/20/24 08:12 Dose: 325 mg Labetalol HCl (Labetalol Inj 5 Mg/Ml Vial 20 Ml) 10 mg IVP Q15M PRN PRN Reason: HYPER Non-Formulary Medication (Linaclotide [Linzess]) 290 mcg PO DAILY [facility] Stop: 01/19/25 08:59 Assessment & Plan Plan Mr Mireles is a 69 yo gentle man with a hx of for A-fib (not on anticoagulation medication of Eliquis for scheduled CABG December 27), DVT, hypertension, CKD, BPH, thoracic aortic aneurysm 4.0 cm (September 2024) presented with slurred speech and left-sided facial droop, confusion, right-sided sensory loss, right upper extremity drift with NIHSS score of 5, admitted for management of stroke. Leslye is PCP. Discharge pending per primary team, Renal function stable CKD Stage IIIa followed by leslye Cr 1.6 ?> 1.3 better eGFR 59 - avoid nephrotoxic agents - renally dose medications - strict ins and outs - cont IV hydration Afib not on AC (pending CABG) Cards consulted rec restarting the patient on Eliquis due to his current A-fib, stop Eliquis on December 24, patient is still cleared for the CABG procedure on December 27 from a cardiology standpoint Acute stroke Chronic DVT Ascending thoracic aneurysm Mitral regurgitation HFrEF (45%) HTN HLD Diet controlled T2DM - a1c 6.9 BPH - management per primary team Plan discussed with nephrology attending Dr. Leslye Escobar MD Internal Medicine PGY-1 Attending Provider Attestation/Addendum Patient seen and examined with resident physician Dr. Escobar. Note reviewed, agree with findings and recommendations. Admitted with weakness and noted to have CVA. Patient with atrial fibrillation history. He is one of my CKD patients. Thank you for the consult.
--- NOTE | 2024-12-20 14:42 | PC.SS ---
Follow up note: SS met with patient and son at bedside to discuss the options PT discussed earlier with them. D/c options were o/p PT or SNF. Both patient and son were agreeable to o/p PT and will follow up with PCP. Tentative d/c for today. Son will transport home.
--- NOTE | 2024-12-20 14:46 | ESPR_ITS ---
<Statement entered by June Lewis MD - 12/20/24 17:34> I have reviewed the note and agree with the resident's assessment & plan with exceptions as below. I have personally reviewed labs, imaging, home meds/prior records, examined the patient, formulated and discussed management plan with the IM team. Patient examined at bedside today. Patient apparently is to have CABG done on Tuesday, however patient does have acute infarct. Patient will need to be on dual antiplatelet therapy, however patient is also to undergo procedure, will consult cardiology for further coordination of care. If patient were to get medical management of CVA, patient will continue with aspirin and Eliquis as Eliquis is a home medicine for him. Neurology on consult, appreciate recommendations. Repeat hematology and chemistry in AM. June Lewis, PGY-2 Internal Medicine Documentation for date of: 12/20/24 Subjective Subjective Interval history: No acute events overnight. Patient seen and examined at bedside. Vitals and labs reviewed. Patient passed speech/swallow screen, advancing to cardiac diet. Patient denies any complaints/concerns. Patient denies fever, chest pain, shortness of breath Exam Vital Signs Temp Pulse Resp BP Pulse Ox O2 Del Method 97.0 F 86 14 101/64 95 Room Air 12/20/24 12:00 12/20/24 12:00 12/20/24 12:00 12/20/24 12:00 12/20/24 12:12/20/24 12:00 Narrative Exam General: No acute distress; A&Ox3 Skin: Warm, dry, intact, no obvious rash. HENT: NCAT, EOMI, not icteric. External ears normal. No rhinorrhea. Moist mucous membranes Cardiovascular: Regular rate and rhythm, no murmur, +S1/S2. Respiratory: Lungs CTAB GI: Soft, nontender, non-distended. No guarding or rebound tenderness. Extremities: trace bilateral lower extremity edema, no cyanosis, no clubbing. Extremity pulses present Neuro: 4/5 R sided strength lower extremities, sensation intact/equal, L sided facial droop, RUE pronator drift Psychiatric: Cooperative, appropriate affect. Objective Labs 12/21/24 05:27 12/21/24 05:27 Labs: Laboratory Results - last 24 hr 12/20/24 05:25 WBC 6.7 RBC 4.93 Hgb 14.0 Hct 42.8 MCV 87 MCH 28.4 MCHC 32.7 RDW Std Deviation 45.9 H Plt Count 454 H D Neut % (Auto) 78 Lymph % (Auto) 10 [place] % (Auto) 9 Eos % (Auto) 2 Baso % (Auto) 1 Neut # (Auto) 5.2 Lymph # (Auto) 0.6 L [place] # (Auto) 0.6 Eos # (Auto) 0.1 Baso # (Auto) 0.1 Immature Gran # (Auto) 0.08 H Absolute Nucleated RBC 0.00 Immature Gran % 1 H Nucleated RBC % 0 Sodium 137 Potassium 3.9 Chloride 101 Carbon Dioxide 25.5 Anion Gap 11 BUN 22 Creatinine 1.3 Estim Creat Clear Calc 61.7 eGFR 59 L BUN/Creatinine Ratio [address] Glu mg/dL 151 H Hemoglobin A1c 6.9 H Calculated Osmolality 278 Calcium 9.6 Corrected Calcium 9.9 Phosphorus 2.8 Magnesium 2.0 Total Bilirubin 0.9 AST 13 ALT 10 Alkaline Phosphatase 65 Total Protein 5.8 Albumin 3.6 Globulin 2.2 L Albumin/Globulin Ratio 1.6 Triglycerides 90 Cholesterol 136 LDL Cholesterol, Calc 81 HDL Cholesterol 37 L Cholesterol/HDL Ratio 3.7 L TSH 1.51 Quality Measures Quality Measures VTE prophylaxis Advance care planning discussed with:: patient and sibling Assessment & Plan Assessment Current Active Medications: Generic Name Dose Route Start Last Admin Trade Name Freq PRN Reason Stop Dose Admin Acetaminophen 650 mg 12/19/24 13:04 Acetaminophen 325 Mg Tablet PO 01/18/25 13:03 Q6H PRN Fever >100 or pain 1-3 Hydrocodone Bitart/Acetaminophen 1 tab 12/19/24 13:04 Hydrocodone/Apap 5/325 Tablet PO 12/24/24 13:03 Q4HR PRN PAIN SCALE 4-6 (Moderate Hydrocodone Bitart/Acetaminophen 1 tab 12/19/24 13:04 Hydrocodone/Apap 10/325 Tab PO 12/24/24 13:03 Q4HR PRN PAIN SCALE 7-10 (Severe Aspirin 81 mg 12/20/24 09:00 12/20/24 10:07 Aspirin 81 Mg Chew PO 01/19/25 08:59 Not Given DAILY [facility] Atorvastatin Calcium 40 mg 12/19/24 21:00 12/19/24 21:05 Atorvastatin Calcium 20 Mg Tablet PO 01/18/25 20:59 40 mg HS [facility] Administration Bisacodyl 10 mg 12/19/24 13:04 Bisacodyl 5 Mg Tabec PO 01/18/25 13:03 QDAY PRN CONSTIPATION Protocol Clopidogrel Bisulfate 75 mg 12/20/24 09:00 12/20/24 10:09 Clopidogrel Bisulfate 75 Mg Tablet PO 01/19/25 08:59 75 mg QDAY [facility] Administration Linzess 290 Mcg 0 ea 12/20/24 09:00 12/20/24 08:12 Capsule PO 01/19/25 08:59 1 capsule QDAY [facility] Administration Dextrose 25 ml 12/20/24 08:50 Dextrose 50%-Water Inj 50 Ml Syringe IV 01/19/25 08:49 Q15MIN PRN BG 50-70 responsive npo pt Dextrose 50 ml 12/20/24 08:50 Dextrose 50%-Water Inj 50 Ml Syringe IV 01/19/25 08:49 Q15MIN PRN BG <50 OR BG <70 & pt unresponsive Furosemide 40 mg 12/20/24 09:00 12/20/24 08:12 Furosemide 40 Mg Tablet PO 01/19/25 08:59 40 mg DAILY [facility] Administration Glucagon 1 mg 12/20/24 08:50 Glucagon Inj 1 Mg Vial IM Q15MIN PRN BG <70, and no IV access Heparin Sodium (Porcine) 5,000 unit 12/19/24 21:00 12/20/24 08:13 Heparin Sod Inj 5000 Unit/Ml Vial SC 01/02/25 20:59 5,000 unit BID [facility] Administration Insulin Human Regular 0 unit 12/20/24 11:30 12/20/24 12:36 Insulin Hum Regular 1 Unit/0.01 Ml (Per Unit) SC 01/19/25 11:29 Not Given AC [facility] Protocol Labetalol HCl 10 mg 12/19/24 07:25 Labetalol Inj 5 Mg/Ml Vial 20 Ml IVP Q15M PRN SBP >220 Ondansetron HCl 4 mg 12/19/24 05:18 Ondansetron Inj 2 Mg/Ml Inj 2 Ml IVP 01/18/25 05:17 Q4HR PRN NAUSEA OR VOMITING Pantoprazole Sodium 40 mg 12/20/24 09:00 12/20/24 08:12 Pantoprazole 40 Mg Tablet PO 01/19/25 08:59 40 mg QDAY [facility] Administration Pharmacy Consult 1 each 12/19/24 15:52 Pharmacy Renal Dose Adjustment 1 Ea XX 01/18/25 15:51 PRN PRN CONSULT Sennosides 1 tab 12/19/24 13:04 Senna Tablet PO 01/18/25 13:03 QDAY PRN constipation Protocol Spironolactone 25 mg 12/20/24 09:00 12/20/24 08:12 Spironolactone 25 Mg Tablet PO 01/19/25 08:59 25 mg QDAY [facility] Administration Tamsulosin HCl 0.4 mg 12/19/24 16:00 12/20/24 08:12 Tamsulosin Hcl 0.4 Mg Capsule PO 01/18/25 15:59 0.4 mg DAILY [facility] Administration Plan Tawanda Mireles is a 69-year-old male with past medical history significant for A- fib (not on anticoagulation medication of Eliquis for scheduled CABG December 27), DVT, hypertension, CKD, BPH, thoracic aortic aneurysm 4.0 cm (September 2024) presented with slurred speech and left-sided facial droop, confusion, right- sided sensory loss, right upper extremity drift with NIHSS score of 5, admitted for management of stroke. #Acute Stroke Likely acute ischemic stroke given time frame, risk factors, imaging negative for hemorrhage, negative for embolic source (will need bubble study) Presented with NIHSS of 5 due to confusion, left sided facial droop, right sided sensation deficit, RUE drift, and mild aphasia. Son noted previous CT showing a previous stroke in preparation for the CABG CTH without hemorrhage, notable for left occipital encephalomalacia; CTA head and neck pending; Outside thrombolytic window. MRI Brain showed 18 mm acute infarct right parietal lobe Patient passed speech/swallow - diet advanced -Aspirin 81 mg po qd -Plavix 75 mg po qd -atorvastatin 40 mg po hs -labetalol 10 mg iv prn -Neurology Consulted, recs appreciated -labetalol IV prn for elevated BP >220 #Atrial fibrillation Home medication of Eliquis, being held since last week for CABG scheduled for December 27. Denies any chest pain/palpitations #History of chronic DVT Home medication of Eliquis, being held as above #History of CKD stage III CKD secondary to hypertensive/ischemic nephropathy. Cr on admission 1.6, baseline appears to be ~1.5. -will continue to monitor cmp #Ascending thoracic aortic aneurysm #History of mitral regurgitation Chest CTA from 10/07/2024 showed Mild aneurysmal dilatation ascending thoracic aorta AP dimension 4.[address] Perez - no need for any intervention at this point for mitral regurgitation as of September 2024 BNP elevated at 615, possibly due to mitral regurgitation, suspected as possible cause for previous bnp elevation earlier this year. -Will monitor for chest/back pain, hemodynamics. #History of hypertension Patient on home med of Lasix 40 mg x2/day MWF and spironolactone 25 mg qd -will monitor blood pressure, specific relevant management above -considering starting home meds after meds reconciled. # Diet-controlled diabetes. No home medication, lifestyle controlled A1c 5.6 as of 09/28/2024 #BPH Patient's home medication of Tamsulosin 0.4 mg 2x/day -will monitor for urinary symptoms Hospital Management: Disposition: Tele Diet: dysphagia 2 GI Prophylaxis: protonix 40 mg qd Bowel Prophylaxis: Home med Linzess; Senna, Dulcolax prn's DVT Prophylaxis: SCD's CODE STATUS: FULL CODE Patient plan of care was discussed with the attending physician, Dr. Arzola & resident physician Dr. Debbie De Souza MD PGY-1 Attending Provider Attestation/Addendum Please disregard the addendum below I reviewed labs, imaging, EKG, home medications and prior available records. Face to face evaluation was performed by me. I have personally examined the patient and discussed assessment and plan with the IM team. I reviewed the resident note and agree with the plan with exceptions as below. CVA, right parietal acute Slurred speech Left facial droop CAD, pending CABG CKD stage IIIa CT head is negative for acute changes CTA showed moderate R ICA occlusion 40 to 60% Started aspirin and atorvastatin Added Plavix Ordered echocardiogram with bubble study which can be done as outpatient Ordered brain MRI: Showed 18 mm right parietal acute CVA Continue neurochecks every 4 hours Consulted neurology Ordered PT evaluation: Ordered home health Monitor kidney function Consulted cardiology regarding his antiplatelet/anticoagulation recommendations prior to CABG Follow-up with cardiology for CABG
--- NOTE | 2024-12-20 17:38 | ESCONSULT_ITS ---
<Statement entered by Machelle Troy MD - 12/26/24 22:51> I personally examined the patient and evaluated the patient who came with some neurologic symptoms possible TIA versus stroke but patient clinically stable no further episodes of neurologic symptoms evaluated patient with resident physician Dr. Giorgi Escalante patient scheduled to have bypass graft surgery next week Eliquis can be discontinued in preparation for surgery I do not think patient had a stroke some of the symptoms appear to have resolved possibly TIA. Continue resumed Eliquis and stop Eliquis only 3 days before the bypass surgery that is scheduled for December. Agree with the treatment plan recommendation as documented with PGY 1 will continue to monitor the patient as an outpatient HPI Data of Consult Requesting Physician: Maulik Arzola MD Admitting Provider: Maulik Arzola MD Attending Provider: Maulik Arzola MD Primary Care Provider: Clemente Gavin MD Consult Narrative History of present illness: 69-year-old male with a history of A-fib, CAD, BPH, thoracic aortic aneurysm, diabetes, who presented to the ED on 12/19/2024 with his son after an hour of slurred speech and right facial droop. The son said that the patient was last seen the evening before that 2030 before the patient went to bed, at the time he was acting normal. Patient is well-known to Dr. Troy. Echocardiogram performed on 09/20/2024 showed slight calcification of the aortic valve with no stenosis, moderate 2+ aortic valve regurgitation, mitral thickening with slight prolapse and evidence of moderate to severe mitral regurg 2-3+, a dilated left atrium, mildly dilated left ventricle with an end-diastolic diameter 56 mm with evidence of moderate global hypokinesis with an ejection fraction of 45%, there is also mild to moderate tricuspid regurg with no evidence of pulmonary hypertension. Patient had a diagnostic right and left heart catheterization on 10/31/2024 that showed severe multi vessel coronary artery disease with evidence of distal RCA total occlusion, middle and distal circumflex artery total occlusion, and proximal mid LAD total occlusion. The patient was seen in the [facility] office on 11/07/2024 and was referred to have coronary artery bypass surgery x [address] Barney at the time. ED Course: Vitals on admission showed temperature of 97.7 pulse of 98, respiratory rate 18, blood pressure 118/79, oxygen saturation of 95% on room air. Labs were significant for Sodium 133, BUN 28, creatinine 1.6, glucose 135, BNP 615. Imaging included CT head that showed no hemorrhage, showed left occipital encephalomalacia. Brain MRI was significant for an 18 mm acute infarct of the right parietal lobe. Chest x-ray showed 8 mm right upper lobe pulmonary nodule. Head neck CTA showed 40 to 60% stenosis of right carotid bifurcation, no large vessel occlusions. In the ED, patient was given Aspirin 325 mg x 1 and was admitted for stroke. Reason for cardiology consult: Cardiology was consulted for management of the patient's stroke, CAD, and A-fib. History: Past medical history: Diabetes, BPH, CAD, A-fib, thoracic aortic aneurysm Surgical history: Bunion repair, colonoscopy 08/16, right knee arthroscopy, coronary angiogram 10/31/2024 Family history: Father at 64 years old, mother at 68 years old from heart attack Social history: No alcohol, smoking, or drug use Allergies: NKDA Home medications: Tamsulosin Linzess Magnesium Vitamin B12 Vitamin D Lorazepam Furosemide Spironolactone cc:: cc: Maulik Arzola MD Review of Systems Review of Systems Narrative Review of Systems: Review of Systems: * General: Denies fevers, chills. * HEENT: Denies headache, congestion, or sore throat. * Cardiac: Denies chest pain or palpitations. * Pulmonary: Denies shortness of breath or cough. * GI: Denies nausea, vomiting, diarrhea, constipation, melena, or hematochezia. * : Denies dysuria, hematuria, frequency, or urgency. * MSK: Denies pain in the extremities, joints, or myalgias. * Neuro: Denies weakness, numbness, vision changes, or speech difficulty. Exam Vital Signs Temp Pulse Resp BP Pulse Ox O2 Del Method 97.0 F 86 14 101/64 95 Room Air 12/20/24 12:12/20/24 12:12/20/24 12:12/20/24 12:12/20/24 12:12/20/24 12:00 Narrative Exam General: Awake and in no acute distress. Conversational and non-toxic appearing. Neurologic: Confused, not oriented to place, no gross neurological deficit, and patient able to move all 4 extremities. HEENT: Normocephalic, atraumatic, mucous membranes moist. Pupils reactive to light. Heart: Regular rate, irregular rhythm, normal S1 and S2, no murmurs. Lungs: Clear to auscultation bilaterally with no wheezing or crackles. Abdomen: Obese, firm, nondistended, nontender, positive bowel sounds. No guarding or rebound tenderness. Extremities: No edema. 2+ radial and dorsalis pedis pulses bilaterally. 5 out of 5 strength in the upper and lower extremities bilaterally. Skin: Warm. Dry. No rash or ecchymoses. Results Labs 12/20/24 05:25 12/20/24 05:25 Labs: Short CBC 12/20/24 Range/Units 05:25 WBC 6.7 (3.8-10.6) Thou/mm3 Hgb 14.0 (13.5-16.0) g/dL Hct 42.8 (41.0-53.0) % Plt Count 454 H D (140-440) Thou/mm3 BMP 12/20/24 05:25 Sodium 137 Potassium 3.9 Chloride 101 Carbon Dioxide 25.5 BUN 22 Creatinine 1.3 Glucose 108 H Calcium 9.6 Liver Function 12/20/24 Range/Units 05:25 Total Bilirubin 0.9 (0.3-1.2) mg/dL AST 13 (0-34) U/L ALT 10 (10-49) U/L Alkaline Phosphatase 65 (46-116) U/L Albumin 3.6 (3.4-4.8) gm/dL Quality Measures Quality Measures VTE prophylaxis Advance care planning discussed with:: patient Medications Home Medications and Allergies Home Medications ?Medication ?Instructions ?Recorded ?Confirmed ?Type furosemide 40 mg tablet 40 mg PO DAILY 10/07/2411/24 History linaclotide 290 mcg capsule 290 mcg PO DAILY 10/07/24 12/19/24 History (Linzess) magnesium 250 mg tablet 250 mg PO QDAY 10/31/2411/24 History mecobalamin (vitamin B12) 1,000 1,000 mcg PO QDAY 01/1712/19/24 History mcg chewable tablet (B12 Active) spironolactone 25 mg tablet 25 mg PO QDAY 10/31/24 History tamsulosin 0.4 mg capsule 0.4 mg PO DAILY 11/02/24 History Allergies Allergy/AdvReac Type Severity Reaction Status Date / Time No Known Allergies Allergy Verified 11/09/24 09:05 Visit Medications Acetaminophen (Acetaminophen 325 Mg Tablet) 650 mg PO Q6H PRN PRN Reason: Fever >100 or pain 1-3 Stop: 01/18/25 13:03 Hydrocodone Bitart/Acetaminophen (Hydrocodone/Apap 5/325 Tablet) 1 tab PO Q4HR PRN PRN Reason: PAIN SCALE 4-6 (Moderate Stop: 12/24/24 13:03 Hydrocodone Bitart/Acetaminophen (Hydrocodone/Apap 10/325 Tab) 1 tab PO Q4HR PRN PRN Reason: PAIN SCALE 7-10 (Severe Stop: 12/24/24 13:03 Aspirin (Aspirin 81 Mg Chew) 81 mg PO DAILY VINITA Stop: 01/19/25 08:59 Last Admin: 12/20/24 10:07 Dose: Not Given Atorvastatin Calcium (Atorvastatin Calcium 20 Mg Tablet) 40 mg PO HS VINITA Stop: 01/18/25 20:59 Last Admin: 12/19/24 21:05 Dose: 40 mg Bisacodyl (Bisacodyl 5 Mg Tabec) 10 mg PO QDAY PRN; Protocol PRN Reason: CONSTIPATION Stop: 01/18/25 13:03 Clopidogrel Bisulfate (Clopidogrel Bisulfate 75 Mg Tablet) 75 mg PO QDAY VINITA Stop: 01/19/25 08:59 Last Admin: 12/20/24 10:09 Dose: 75 mg Linzess 290 Mcg (Capsule) 0 ea PO QDAY VINITA Stop: 01/19/25 08:59 Last Admin: 12/20/24 08:12 Dose: 1 capsule Dextrose (Dextrose 50%-Water Inj 50 Ml Syringe) 25 ml IV Q15MIN PRN PRN Reason: BG 50-70 responsive npo pt Stop: 01/19/25 08:49 Dextrose (Dextrose 50%-Water Inj 50 Ml Syringe) 50 ml IV Q15MIN PRN PRN Reason: BG <50 OR BG <70 & pt unresponsive Stop: 01/19/25 08:49 Furosemide (Furosemide 40 Mg Tablet) 40 mg PO DAILY VINITA Stop: 01/19/25 08:59 Last Admin: 12/20/24 08:12 Dose: 40 mg Glucagon (Glucagon Inj 1 Mg Vial) 1 mg IM Q15MIN PRN PRN Reason: BG <70, and no IV access Heparin Sodium (Porcine) (Heparin Sod Inj 5000 Unit/Ml Vial) 5,000 unit SC BID [facility] Stop: 01/02/25 20:59 Last Admin: 12/20/24 08:13 Dose: 5,000 unit Insulin Human Regular (Insulin Hum Regular 1 Unit/0.01 Ml (Per Unit)) 0 unit SC AC [facility]; Protocol Stop: 01/19/25 11:29 Last Admin: 12/20/24 17:28 Dose: Not Given Labetalol HCl (Labetalol Inj 5 Mg/Ml Vial 20 Ml) 10 mg IVP Q15M PRN PRN Reason: SBP >220 Ondansetron HCl (Ondansetron Inj 2 Mg/Ml Inj 2 Ml) 4 mg IVP Q4HR PRN PRN Reason: NAUSEA OR VOMITING Stop: 01/18/25 05:17 Pantoprazole Sodium (Pantoprazole 40 Mg Tablet) 40 mg PO QDAY [facility] Stop: 01/19/25 08:59 Last Admin: 12/20/24 08:12 Dose: 40 mg Pharmacy Consult (Pharmacy Renal Dose Adjustment 1 Ea) 1 each XX PRN PRN PRN Reason: CONSULT Stop: 01/18/25 15:51 Sennosides (Senna Tablet) 1 tab PO QDAY PRN; Protocol PRN Reason: constipation Stop: 01/18/25 13:03 Spironolactone (Spironolactone 25 Mg Tablet) 25 mg PO QDAY [facility] Stop: 01/19/25 08:59 Last Admin: 12/20/24 08:12 Dose: 25 mg Tamsulosin HCl (Tamsulosin Hcl 0.4 Mg Capsule) 0.4 mg PO DAILY [facility] Stop: 01/18/25 15:59 Last Admin: 12/20/24 08:12 Dose: 0.4 mg Discontinued Medications Aspirin (Aspirin 325 Mg Tablet) 325 mg PO X1 ONE Stop: 12/19/24 06:24 Last Admin: 12/19/24 06:28 Dose: 325 mg Aspirin (Aspirin 325 Mg Tablet) 325 mg PO DAILY VINITA Stop: 01/19/25 08:59 Last Admin: 12/20/24 08:12 Dose: 325 mg Labetalol HCl (Labetalol Inj 5 Mg/Ml Vial 20 Ml) 10 mg IVP Q15M PRN PRN Reason: HYPER Non-Formulary Medication (Linaclotide [Linzess]) 290 mcg PO DAILY VINITA Stop: 01/19/25 08:59 Assessment & Plan Plan 69-year-old male with a history of A-fib, CAD, BPH, thoracic aortic aneurysm, diabetes, who presented to the ED on 12/19/2024 with his son after an hour of slurred speech and right facial droop. The patient has severe multivessel coronary artery disease and was referred for coronary artery bypass graft x [address] Barney in [place] by Dr. Troy. The patient was admitted for management of his right sided occipital stroke. #A-fib #Severe multivessel coronary artery disease #Cerebral vascular accident #Thoracic aortic aneurysm #Mitral regurg #HFrEF with EF 45% #History of DVT - Patient has an unconfirmed history of A-fib per chart review from the cardiology office, he is in A-fib upon cardiology consultation, stroke likely is embolic in nature - Patient is on furosemide and spironolactone for his heart failure, he denies chest pain or shortness of breath - CTA on 10/07/2024 showed 4 mm aneurysmal dilation of the thoracic aorta - The patient has a history of DVT, there was no evidence of DVT last time the patient visited outpatient cardiology on 11/07/2024 - Patient is scheduled to have coronary artery bypass graft x 4 on December 27 - The severe multivessel coronary artery disease requiring CABG surgery takes precedence in the clinical picture of this patient, as the patient has preserved visual abraham and preservation of strength on exam by the cardiology team Plan: - Cardiology team recommends restarting the patient on Eliquis due to his current A-fib, stop Eliquis on December 24, patient is still cleared for the CABG procedure on December 27 from a cardiology standpoint - No need for intervention on the thoracic aortic aneurysm - Continue home furosemide and spironolactone for HFrEF with EF 45% #History of CKD stage III #Diet-controlled diabetes #BPH The rest of the patient's hospital problems will be managed per the primary team. Patient was seen and discussed with my attending physician Dr. Troy. Giorgi Escalante DO PGY-1.
[2024-12-20] MEDS: ATORVASTATIN CALCIUM 20 MG TABLET 40 MG PO (20:06)
--- NOTE | 2024-12-20 21:03 | PD.NEUROPROG ---
Documentation for date of: 12/20/24 Subjective Subjective Interval history: Patient was seen in telemetry today with his family at the bedside, no new symptoms reported, right facial weakness is resolving. Exam - Neurology Vital Signs Temp Pulse Resp BP Pulse Ox O2 Del Method 98.1 F 70 18 106/79 95 Room Air 12/20/24 16:00 12/20/24 16:00 12/20/24 16:00 12/20/24 16:00 12/20/24 16:00 12/20/24 16:00 Narrative Exam GENERAL APPEARANCE: Well hydrated, well-nourished in no acute distress. HEENT: Normocephalic, atraumatic, extraocular movements intact. Pupils: Equal reacting to light and accommodation NECK: Supple, no JVD or bruits. CARDIOVASULAR: Heart: S1, S2 heard, regular without S3-S4 or murmur no rubs or gallops. LUNGS/CHEST: Clear to auscultation bilaterally. No rails, rhonchi, or wheezing. Normal inspection. ABDOMEN: Soft, nontender, with normal bowel sounds. No pulsatile masses. No rebound, rigidity, or guarding. Normal inspection and palpation. EXTREMITIES: Normal inspection and palpation. No edema, clubbing or cyanosis. SKIN: Warm and dry without rashes. Normal inspection. MUSCULOSKELETAL: No cervical, thoracic, lumbar or midline bony tenderness. Normal inspection. NEURO: Alert, awake and oriented x3. Cranial nerves: II through XII grossly intact with exception of subtle right facial weakness of upper motor neuron type. Speech and language: Normal with no dysarthria or dysphasia. Motor system: Tone and bulk: Normal: Strength: 5 out of 5 in all 4 extremities; No pronator drift noted. Deep tendon reflexes: 2+ bilaterally symmetrical. Plantar reflex: Downgoing bilaterally. Sensory system: Intact to all modalities of sensation bilaterally. Coordination: Intact to [id number] and zppg-[id number]-[id number] test bilaterally. No ataxia, no dysmetria, or dysdiadochokinesia noted. No intention tremors noted. Gait: Normal. Toe, heel, tandem walk all are normal. Romberg: Negative. No signs of meningeal irritation noted. PSYCHIATRIC: Normal mood and affect. Objective Labs 12/21/24 05:27 12/21/24 05:27 Labs: Laboratory Results - last 24 hr 12/20/24 05:25 WBC 6.7 RBC 4.93 Hgb 14.0 Hct 42.8 MCV 87 MCH 28.4 MCHC 32.7 RDW Std Deviation 45.9 H Plt Count 454 H D Neut % (Auto) 78 Lymph % (Auto) 10 Todd % (Auto) 9 Eos % (Auto) 2 Baso % (Auto) 1 Neut # (Auto) 5.2 Lymph # (Auto) 0.6 L Todd # (Auto) 0.6 Eos # (Auto) 0.1 Baso # (Auto) 0.1 Immature Gran # (Auto) 0.08 H Absolute Nucleated RBC 0.00 Immature Gran % 1 H Nucleated RBC % 0 Sodium 137 Potassium 3.9 Chloride 101 Carbon Dioxide 25.5 Anion Gap 11 BUN 22 Creatinine 1.3 Estim Creat Clear Calc 61.7 eGFR 59 L BUN/Creatinine Ratio [address] Glu mg/dL 151 H Hemoglobin A1c 6.9 H Calculated Osmolality 278 Calcium 9.6 Corrected Calcium 9.9 Phosphorus 2.8 Magnesium 2.0 Total Bilirubin 0.9 AST 13 ALT 10 Alkaline Phosphatase 65 Total Protein 5.8 Albumin 3.6 Globulin 2.2 L Albumin/Globulin Ratio 1.6 Triglycerides 90 Cholesterol 136 LDL Cholesterol, Calc 81 HDL Cholesterol 37 L Cholesterol/HDL Ratio 3.7 L TSH 1.51 Assessment & Plan Assessment and plan (1) Acute CVA (cerebrovascular accident): Status: Acute Assessment and plan: MRI brain: Multiple embolic type infarcts in both cerebral hemispheres, biggest 1 is in the right frontal lobe continue with Eliquis and ASA Coordinate with cardiothoracic surgeon to see about the preop prep for CABG scheduled on 27 of December at [facility]. Patient is stable from neurology standpoint for discharge. (2) Atrial fibrillation: Status: Acute Assessment and plan: continue with rate control and Eliquis
[2024-12-21] VITALS: BP 105/80; PULSE 73; RESP 21; TEMP 36.6; O2SAT 97
[2024-12-21 04:00] VITALS: BP 119/71; PULSE 77; RESP 17; TEMP 36.8; O2SAT 98
[2024-12-21 05:41] VITALS: BMI 29.1
[2024-12-21 05:48] LABS: Basophils # (Auto) 0.1 Thou/mm3 (0.0-0.2); Basophils % (Auto) 1 % (0-2.5); Eosinophils # (Auto) 0.1 Thou/mm3 (0.0-0.5); Eosinophils % (Auto) 2 % (0-10); Hematocrit 43.4 % (41.0-53.0); Hemoglobin 14.0 g/dL (13.5-16.0); Immature Granulocytes Auto 0.07 Thou/mm3 (0.00-0.00); Lymphocytes # (Auto) 0.9 Thou/mm3 (1.0-4.8); Lymphocytes % (Auto) 16 % (10-50); Mean Corpuscular HGB Conc 32.3 g/dl (31.0-37.0); Mean Corpuscular Hemoglobin 28.1 pg (25.0-35.0); Mean Corpuscular Volume 87 fL (80-100); Monocytes # (Auto) 0.6 Thou/mm3 (0.0-0.8); Monocytes % (Auto) 11 % (0-12); Neutrophils # (Auto) 4.1 Thou/mm3 (1.8-7.7); Neutrophils % (Auto) 70 % (37-80); Nucleated Red Blood Cell # 0.00 Thou/mm3 (0.00-0.00); Nucleated Red Blood Cell % 0 /100 WBC (0); Platelet Count 464 Thou/mm3 (140-440); RDW Standard Deviation 45.9 fL (35.1-43.9); Red Blood Count 4.99 Miln/mm3 (4.50-5.90); White Blood Count 5.9 Thou/mm3 (3.8-10.6)
[2024-12-21 06:32] LABS: Alanine Aminotransferase 9 U/L (10-49); Albumin, Serum 3.5 gm/dL (3.4-4.8); Albumin/Globulin Ratio 1.5 (1.2-2.2); Alkaline Phosphatase 66 U/L (46-116); Anion Gap 12 (7-16); Aspartate Amino Transferase 13 U/L (0-34); BUN/Creatinine Ratio 14 Ratio (12-20); Bilirubin,Total 0.9 mg/dL (0.3-1.2); Blood Urea Nitrogen 20 mg/dL (9-23); Calcium 9.6 mg/dL (8.3-10.6); Calcium (Corrected) 10.0 mg/dL (8.5-10.1); Carbon Dioxide 25.1 mMol/L (20.0-31.0); Chloride 101 mMol/L (98-107); Creatinine (Component) 1.4 mg/dL (0.6-1.3); Estimated Creatinine Clearance 56.8 mL/min (>60); Globulin 2.4 gm/dL (2.3-3.5); Glucose 85 mg/dL (74-106); Magnesium 1.9 mg/dL (1.6-2.6); Osmolality,Calculated 277 (275-295); Phosphorous 3.2 mg/dL (2.4-5.1); Potassium 4.2 mMol/L (3.4-5.1); Sodium 138 mMol/L (136-145); Total Protein 5.9 gm/dL (5.7-8.2); eGFR 54 See Note
[2024-12-21 08:00] VITALS: BP 94/52; PULSE 97; RESP 18; TEMP 36.2; O2SAT 98
--- NOTE | 2024-12-21 08:26 | ESPR_ITS ---
Documentation for date of: 12/21/24 Subjective Subjective Interval history: per H and p and my interview of patient Tawanda Mireles is a 69-year-old male with past medical history significant for A- fib (not on anticoagulation medication of Eliquis for scheduled CABG December 27), DVT, hypertension, CKD, BPH, thoracic aortic aneurysm 4.0 cm (September 2024) presented with slurred speech and left-sided facial droop, confusion, right- sided sensory loss, right upper extremity drift with NIHSS score of 5, admitted for management of stroke. Patient was accompanied by his son who helped tell the history. They stated that when he woke up this morning he started to talk to his son and the son immediately recognized that he was slurring his speech and had left sided facial droop along with being confused and having difficulty with his equilibrium. The son states that this is never happened before to him, though he said he remembered a previous CT showing a previous stroke in preparation for the CABG before this. Patient's primary care doctor is Dr. Gavin. On review of systems, patient endorsed constipation and ~20 pound weight loss in the last month or so due to water pill. Patient denied having fever, chest pain, shortness of breath, abdominal pain, nausea, vomiting, diarrhea. 12/19/2024: Admitted for stroke work up/rule out. Cr 1.6 CTA head and neck with 4 0-60% stenosis right carotid bifurcation origin right internal carotid artery. MRI brain, 18 mm acute infarct right parietal lobe 12/20/2024: Patient seen and examined at bedside. patient's friend seen at bedside. Cr 1.3, eGFR 59, Carotid doppler with no stenosis. ok to discharge from nephrology perspective, discharge pending per primary team 12/21/2024: Patient seen and examined at bedside patient sitting on edge of bed dressed. Creatinine is improved primary team to restart anticoagulation prior to discharge, today. Patient has upcoming CABG on December 27 per cardiology recommend holding anticoagulation on December 24. Exam Vital Signs Temp Pulse Resp BP Pulse Ox O2 Del Method 98.2 F 97 17 119/71 98 Room Air 12/21/24 04:00 12/21/24 08:00 12/21/24 04:00 12/21/24 04:00 12/21/24 04:00 12/21/24 04:00 Narrative Exam GENERAL: no acute distress, AAO x3, comfortably sitting at edge of bed. HEENT: Head AT/ NC. Mucous membranes moist. PERRL. NECK: Supple, no lymphadenopathy, CARDIOVASCULAR: RRR. Normal S1/S2, No m/r/g. No pitting edema of bilateral LEs. RESPIRATORY: CTAB. No wheezing, rhonchi, crackles. GASTROINTESTINAL: Abdomen soft, non tender no palpable masses. Bowel sounds present MUSCULOSKELETAL:? No cyanosis or edema, no visible joint swelling. NEUROLOGICAL: CN not assessed. UE 5/5, R hip flexion weak 2/2 prior injury. PSYCHIATRIC: Awake and alert, not agitated, normal mood and affect. SKIN: No obvious rashes, no jaundice, normal turgor. Objective Labs 12/21/24 05:27 12/21/24 05:27 Labs: Laboratory Results - last 24 hr 12/21/24 05:27 WBC 5.9 RBC 4.99 Hgb 14.0 Hct 43.4 MCV 87 MCH 28.1 MCHC 32.3 RDW Std Deviation 45.9 H Plt Count 464 H Neut % (Auto) 70 Lymph % (Auto) 16 [place] % (Auto) 11 Eos % (Auto) 2 Baso % (Auto) 1 Neut # (Auto) 4.1 Lymph # (Auto) 0.9 L [place] # (Auto) 0.6 Eos # (Auto) 0.1 Baso # (Auto) 0.1 Immature Gran # (Auto) 0.07 H Absolute Nucleated RBC 0.00 Immature Gran % 1 H Nucleated RBC % 0 Sodium 138 Potassium 4.2 Chloride 101 Carbon Dioxide 25.1 Anion Gap 12 BUN 20 Creatinine 1.4 H Estim Creat Clear Calc 56.8 L eGFR 54 L BUN/Creatinine Ratio 14 Glucose 85 Calculated Osmolality 277 Calcium 9.6 Corrected Calcium 10.0 Phosphorus 3.2 Magnesium 1.9 Total Bilirubin 0.9 AST 13 ALT 9 L Alkaline Phosphatase 66 Total Protein 5.9 Albumin 3.5 Globulin 2.4 Albumin/Globulin Ratio 1.5 Quality Measures Quality Measures VTE prophylaxis Advance care planning discussed with:: patient Assessment & Plan Assessment Current Active Medications: Generic Name Dose Route Start Last Admin Trade Name Freq PRN Reason Stop Dose Admin Acetaminophen 650 mg 12/19/24 13:04 Acetaminophen 325 Mg Tablet PO 01/18/25 13:03 Q6H PRN Fever >100 or pain 1-3 Hydrocodone Bitart/Acetaminophen 1 tab 12/19/24 13:04 Hydrocodone/Apap 5/325 Tablet PO 12/24/24 13:03 Q4HR PRN PAIN SCALE 4-6 (Moderate Hydrocodone Bitart/Acetaminophen 1 tab 12/19/24 13:04 Hydrocodone/Apap 10/325 Tab PO 12/24/24 13:03 Q4HR PRN PAIN SCALE 7-10 (Severe Apixaban 5 mg 12/21/24 09:00 Apixaban 2.5 Mg Tablet PO 01/20/25 08:59 BID VINITA Aspirin 81 mg 12/21/24 09:00 Aspirin Ec 81 Mg Tabec PO 01/20/25 08:59 QDAY VINITA Atorvastatin Calcium 40 mg 12/19/24 21:00 12/20/24 20:06 Atorvastatin Calcium 20 Mg Tablet PO 01/18/25 20:59 40 mg HS VINITA Administration Bisacodyl 10 mg 12/19/24 13:04 Bisacodyl 5 Mg Tabec PO 01/18/25 13:03 QDAY PRN CONSTIPATION Protocol Linzess 290 Mcg 0 ea 12/20/24 09:00 12/20/24 08:12 Capsule PO 01/19/25 08:59 1 capsule QDAY VINITA Administration Dextrose 25 ml 12/20/24 08:50 Dextrose 50%-Water Inj 50 Ml Syringe IV 01/19/25 08:49 Q15MIN PRN BG 50-70 responsive npo pt Dextrose 50 ml 12/20/24 08:50 Dextrose 50%-Water Inj 50 Ml Syringe IV 01/19/25 08:49 Q15MIN PRN BG <50 OR BG <70 & pt unresponsive Furosemide 40 mg 12/20/24 09:00 12/20/24 08:12 Furosemide 40 Mg Tablet PO 01/19/25 08:59 40 mg DAILY VINITA Administration Glucagon 1 mg 12/20/24 08:50 Glucagon Inj 1 Mg Vial IM Q15MIN PRN BG <70, and no IV access Magnesium Sulfate/Dextrose 1 gm in 100 mls @ 100 mls/hr 12/21/24 08:23 Magnesium Sulfate Ivpb IV 12/21/24 09:22 X1 ONE Insulin Human Regular 0 unit 12/20/24 11:30 12/21/24 08:20 Insulin Hum Regular 1 Unit/0.01 Ml (Per Unit) SC 01/19/25 11:29 Not Given AC VINITA Protocol Labetalol HCl 10 mg 12/19/24 07:25 Labetalol Inj 5 Mg/Ml Vial 20 Ml IVP Q15M PRN SBP >220 Ondansetron HCl 4 mg 12/19/24 05:18 Ondansetron Inj 2 Mg/Ml Inj 2 Ml IVP 01/18/25 05:17 Q4HR PRN NAUSEA OR VOMITING Pantoprazole Sodium 40 mg 12/20/24 09:00 12/20/24 08:12 Pantoprazole 40 Mg Tablet PO 01/19/25 08:59 40 mg QDAY VINITA Administration Pharmacy Consult 1 each 12/19/24 15:52 Pharmacy Renal Dose Adjustment 1 Ea XX 01/18/25 15:51 PRN PRN CONSULT Sennosides 1 tab 12/19/24 13:04 Senna Tablet PO 01/18/25 13:03 QDAY PRN constipation Protocol Spironolactone 25 mg 12/20/24 09:00 12/20/24 08:12 Spironolactone 25 Mg Tablet PO 01/19/25 08:59 25 mg QDAY VINITA Administration Tamsulosin HCl 0.4 mg 12/19/24 16:00 12/20/24 08:12 Tamsulosin Hcl 0.4 Mg Capsule PO 01/18/25 15:59 0.4 mg DAILY VINITA Administration Plan Mr. Mireles is a 69 yo gentle man with a hx of for A-fib (not on anticoagulation medication of Eliquis for scheduled CABG December 27), DVT, hypertension, CKD, BPH, thoracic aortic aneurysm 4.0 cm (September 2024) presented with slurred speech and left-sided facial droop, confusion, right-sided sensory loss, right upper extremity drift with NIHSS score of 5, admitted for management of stroke. Luda is PCP. Restarted apix, plan to discharge today per primary team. CKD Stage IIIa followed by luda Cr 1.6 ?> 1.4 better eGFR 59 - follow up with luda outpatient Afib not on AC (pending CABG) Cards consulted rec restarting the patient on Eliquis due to his current A-fib, stop Eliquis on December 24, patient is still cleared for the CABG procedure on December 27 from a cardiology standpoint - primary team restarted apix today Acute stroke Chronic DVT Ascending thoracic aneurysm Mitral regurgitation HFrEF (45%) HTN HLD Diet controlled T2DM - a1c 6.9 BPH - management per primary team Plan discussed with nephrology attending Dr. Luda Escobar MD Internal Medicine PGY-1 Attending Provider Attestation/Addendum Patient seen and examined with resident physician Dr. Escobar. Note reviewed, agree with findings and recommendations. Patient currently seen in telemetry. Resting comfortably. Shortness of breath and chest pain markedly improved. Creatinine improved. Renal gonzalez stable for discharge.
[2024-12-21] MEDS: APIXABAN 2.5 MG TABLET 5 MG PO (08:36)
[2024-12-21] MEDS: ASPIRIN EC 81 MG TABEC PO (08:37)
[2024-12-21] MEDS: TAMSULOSIN HCL 0.4 MG CAPSULE PO (08:37)
[2024-12-21] MEDS: PANTOPRAZOLE 40 MG TABLET PO (08:37)
[2024-12-21] MEDS: LINZESS 290 MCG CAPSULE PO (08:37)
--- NOTE | 2024-12-21 10:32 | ESDS_ITS ---
<Statement entered by June Lewis MD - 12/21/24 14:37> I have reviewed the note and agree with the resident's assessment & plan with exceptions as below. I have personally reviewed labs, imaging, home meds/prior records, examined the patient, formulated and discussed management plan with the IM team. Patient examined at bedside today. Patient cleared from neurology and cardiology at this time. Patient to continue with aspirin and Eliquis for acute CVA and for atrial fibrillation. Patient to get coronary artery bypass surgery on December 27 as he will hold his Eliquis 3 days before his procedure as this means that his last dose of Eliquis will be December 24. Patient to continue taking aspirin indefinitely regardless of surgery. Patient was then medically cleared for discharge. Patient was then discharged with the following instructions listed below. June Lewis, PGY-2 Internal Medicine Planned Discharge Date 12/21/24 DS: Providers Provider Date of admission: 12/19/24 08:39 Primary care physician: Clemente Gavin MD Admitting Provider: Maulik Arzola MD Attending Provider on Admission: Maulik Arzola MD Consults: 12/19/24 05:18 Consult to Neurology / Tele-Neurology Routine Comment: Consulting Provider: [facility] 12/19/24 15:50 Speech [Referral - [employer] Support Administrator] Routine Comment: 12/19/24 15:51 Referral Physical Therapy Routine Comment: Physician Instructions: 12/19/24 15:53 Consult to Neurology / Tele-Neurology Urgent Comment: stroke Consulting Provider: Myles Ribera 12/20/24 07:19 Referral Speech Therapy Urgent Comment: 12/20/24 16:02 Consult to Cardiology Routine Comment: Consulting Provider: Machelle Troy Instructions: medication management as pt is planned for CABG and had acute stroke Attending Provider on DC: Maulik Arzola MD Discharging Provider: Maulik Arzola MD DS: Diagnosis Problem List Completed Was Problem List Reviewed/Reconciled?: Yes Hospital Course Hospital Course Hospital course: Tawanda Mireles is a 69-year-old male with past medical history significant for A- fib (not on anticoagulation medication of Eliquis for scheduled CABG December 27), DVT, hypertension, CKD, BPH, thoracic aortic aneurysm 4.0 cm (September 2024) presented with acute stroke symptoms in the ED at [facility], NIHSS score of 5, admitted for management of acute stroke. Patient was not a candidate for fibrinolytic therapy as he was outside the 4.5 hour window. Vitals on admission were stable. Labs on admission significant for mildly elevated creatinine along with elevated BNP. EKG showed atrial fibrillation. Imaging of CT head showed no hemorrhage, showed left occipital encephalomalacia. Chest x-ray showed 8 mm right upper lobe pulmonary nodule. Head neck CTA showed 40 to 60% stenosis of right carotid bifurcation, no large vessel occlusions. Carotid doppler unremarkable. Patient was given an initial loading dose of aspirin in the ED. Neurology was consulted and recommended to continue with aspirin and to appropriately goal reduce blood pressure. Brain MRI was ordered and showed 18 mm acute infarct right parietal lobe with no large vessel occlusions. Neurology found there to be multiple embolic type infarcts in both cerebral hemispheres, biggest 1 is in the right frontal lobe, they recommended to continue with Eliquis and ASA. Patient was discharged in clinically stable condition as is recommended to continue aspirin for lifetime once per day and ton continue Eliquis through December 24 and then discontinue after December 24 in preparation for his heart surgery. Discharge Instructions Follow-up with your PCP within 1 week Follow up with your conveyor man within one week STOP TAKING ELIQUIS AFTER in PREPARATION FOR YOUR HEART SURGERY (LAST DOSE is December 24) CONTINUE TAKING ASPIRIN INDEFINITELY, CONTINUE TAKING THROUGH SURGERY Follow up with neurology outpatient, have your PCP refer you to Dr. Ribera Take your medicines as prescribed Return to ED if your symptoms worsen or return Admission Diagnosis #Acute CVA #Chronic Atrial fibrillation #History of chronic DVT #History of CKD stage III #Ascending thoracic aortic aneurysm #History of mitral regurgitation #History of hypertension #Diet-controlled diabetes. #BPH Patient plan of care was discussed with the attending physician, Dr. Arzola & resident physician Dr. Debbie De Souza MD PGY-1 Time Spent with Patient Time attestation: Total time spent providing and/or coordinating discharge services: Time spent: Greater than 30 minutes Exam Vital Signs Temp Pulse Resp BP Pulse Ox O2 Del Method 97.1 F 97 18 94/52 L 98 Room Air 12/21/24 08:00 12/21/24 08:00 12/21/24 08:00 12/21/24 08:00 12/21/24 08:00 12/21/24 04:00 Narrative Exam General: No acute distress; A&Ox3 Skin: Warm, dry, intact, no obvious rash. HENT: NCAT, EOMI, not icteric. External ears normal. No rhinorrhea. Moist mucous membranes Cardiovascular: Regular rate and rhythm, no murmur, +S1/S2. Respiratory: Lungs CTAB GI: Soft, nontender, non-distended. No guarding or rebound tenderness. Extremities: trace bilateral lower extremity edema, no cyanosis, no clubbing. Extremity pulses present Neuro: 4/5 R sided strength lower extremities, sensation intact/equal, L sided facial droop, RUE pronator drift Psychiatric: Cooperative, appropriate affect. Discharge Plan Plan Patient Disposition: HOME (Self Care) Patient condition on transfer: Stable Care Plan Goals: Discharge instructions Follow-up with your PCP within 1 week Follow up with your conveyor man within one week STOP TAKING ELIQUIS AFTER in PREPARATION FOR YOUR HEART SURGERY (LAST DOSE is December 24) CONTINUE TAKING ASPIRIN INDEFINITELY, CONTINUE TAKING THROUGH SURGERY Follow up with neurology outpatient, have your PCP refer you to Dr. Ribera Take your medicines as prescribed Return to ED if your symptoms worsen or return Prescriptions/Referrals Prescriptions/Med Rec: New aspirin 81 mg tablet 81 mg PO QDAY 30 Days Qty: 30 0RF Rx Instructions: Take one tablet by mouth every day atorvastatin [Lipitor] 80 mg tablet 80 mg PO QPM 30 Days Qty: 30 0RF Rx Instructions: Take one tablet by mouth at bedtime Continued Eliquis 5 mg tablet 5 mg PO BID Qty: 60 0RF furosemide 40 mg tablet 40 mg PO DAILY Patient Comments: TAKE 1 TABLET BY MOUTH TWICE A DAY Linzess 290 mcg capsule 290 mcg PO DAILY tamsulosin 0.4 mg capsule 0.4 mg PO DAILY Patient Comments: TAKE 2 CAPSULES BY MOUTH EVERY DAY magnesium 250 mg tablet 250 mg PO QDAY spironolactone 25 mg tablet 25 mg PO QDAY mecobalamin (vitamin B12) [B12 Active] 1,000 mcg tablet,chewable 1,000 mcg PO QDAY Referrals: Machelle Troy MD [Physician] - Myles Ribera MD [Physician] - Clemente Gavin MD [Primary Care Provider] - Patient/Caregiver Discharge Instructions Discharge Activity: activity as tolerated Education Materials: Stroke and Heart Disease, Coronary Artery Bypass Surgery, Stroke: Taking Medicines, Stroke Mood Swings Depression, Stroke: Resources and Support, Stroke: Self-Care, Stroke: Tips for Swallowing, Stroke Regaining Movement, Stroke Self Care After, Stroke Prevent Another Caregiver, Stroke Prevention Activity, Stroke Prevent Live W Atrial Fib Print Language: Syriac Stand Alone Forms: Sherrie Award Info., Patient Portal Info Letter Discharge Order Discharge Orders: Discharge (Routine); Ordered 12/21/24 Ordered By: June Lewis Quality Discharge Quality Measures VTE prophylaxis (Eliquis) Attestestation MD Attestation I reviewed labs, imaging, EKG, home medications and prior available records. Face to face evaluation was performed by me. I have personally examined the patient and discussed assessment and plan with the IM team. I reviewed the resident note and agree with the plan with exceptions as below. CVA, right parietal acute Slurred speech Left facial droop CAD, pending CABG CKD stage IIIa CT head is negative for acute changes CTA showed moderate R ICA occlusion 40 to 60% Started aspirin and atorvastatin Continue aspirin until CABG surgery Continue Eliquis until 12/24, 3 days prior to CABG surgery Ordered echocardiogram with bubble study which can be done as outpatient Ordered brain MRI: Showed 18 mm right parietal acute CVA Outpatient follow-up with neurology Ordered PT evaluation: Ordered home health Monitor kidney function Outpatient follow-up with cardiology Time spent
[2024-12-21 11:30] VITALS: PULSE 89
[2024-12-21 11:33] VITALS: BP 103/61; PULSE 78; RESP 24; TEMP 36.1; O2SAT 98
== END 2024-12-21 12:57 | disposition home or self-care (01) | DRG 65 ==
LOC: SERX 06:54 → SERHOLD 08:52 → S2NX 18:03
PROVIDERS: Physician Assistant; Student in an Organized Health Care Education/Training Program; Admitting Provider Student in an Organized Health Care Education/Training Program; Emergency Provider Emergency Medicine; PCP Internal Medicine; Visit Provider Student in an Organized Health Care Education/Training Program
DX: I63.89 Other cerebral infarction (principal); I13.0 Hypertensive heart and chronic kidney disease with heart failure and stage 1 through stage 4 chronic kidney disease, or unspecified chronic kidney disease; I48.20 Chronic atrial fibrillation, unspecified; I50.20 Unspecified systolic (congestive) heart failure; R29.810 Facial weakness; N40.0 Benign prostatic hyperplasia without lower urinary tract symptoms; I25.10 Atherosclerotic heart disease of native coronary artery without angina pectoris; I48.91 Unspecified atrial fibrillation; R47.1 Dysarthria and anarthria; N18.31 Chronic kidney disease, stage 3a; I12.9 Hypertensive chronic kidney disease with stage 1 through stage 4 chronic kidney disease, or unspecified chronic kidney disease; I65.21 Occlusion and stenosis of right carotid artery; R29.705 NIHSS score 5; I71.21 Aneurysm of the ascending aorta, without rupture; E11.22 Type 2 diabetes mellitus with diabetic chronic kidney disease; R29.703 NIHSS score 3; R47.01 Aphasia; Z79.82 Long term (current) use of aspirin; E78.5 Hyperlipidemia, unspecified; I34.0 Nonrheumatic mitral (valve) insufficiency; Z79.899 Other long term (current) drug therapy; Z86.73 Personal history of transient ischemic attack (TIA), and cerebral infarction without residual deficits; Z95.1 Presence of aortocoronary bypass graft
CPT/HCPCS: 36415; 70450; 70496; 70498; 70544; 71045; 80053; 80061; 80307; 81001; 83036; 83735; 84100; 84443; 84484; 85025; 85610; 85730; 92610; 93005; 93306; 93880; 97162; 99285; A4649; J1644; J3475; Q9967; A9270

== ENCOUNTER 2025-01-13 00:57 | Emergency (ER) | payer OTHER, MEDICAID, SELFPAY ==
[2025-01-13 01:06] VITALS: PULSE 84; RESP 18; O2SAT 97; BMI 30.1
[2025-01-13 01:25] VITALS: BP 175/90; PULSE 108; RESP 18; TEMP 37.1; O2SAT 97
--- NOTE | 2025-01-13 01:26 | PD.EDFALL ---
ED Fall Injury RME/HPI General Chief Complaint: Fall Stated Complaint: FALL Time Seen by Provider: 01/13/25 01:28 Arrival date/time: 01/13/25 00:57 RME / HPI RME / HPI Narrative: See [facility] for Dr. Brown's HPI Documentation. Related Data Home Medications ?Medication ?Instructions ?Recorded ?Confirmed furosemide 40 mg tablet 40 mg PO DAILY 10/07/24 12/19/24 linaclotide 290 mcg capsule 290 mcg PO DAILY 10/07/24 12/19/24 (Linzess) magnesium 250 mg tablet 250 mg PO QDAY 10/31/24 12/19/24 mecobalamin (vitamin B12) 1,000 1,000 mcg PO QDAY 10/31/24 12/19/24 mcg chewable tablet (B12 Active) spironolactone 25 mg tablet 25 mg PO QDAY 10/31/24 12/19/24 tamsulosin 0.4 mg capsule 0.4 mg PO DAILY 11/02/24 12/19/24 Previous Rx's ?Medication ?Instructions ?Recorded apixaban 5 mg tablet (Eliquis) 5 mg PO BID #60 tabs 10/07/24 aspirin 81 mg tablet 81 mg PO QDAY 1 month #30 tabs 12/21/24 atorvastatin 80 mg tablet (Lipitor) 80 mg PO QPM 1 month #30 tabs 12/21/24 ibuprofen 800 mg tablet 800 mg PO Q8H PRN pain #30 tabs 01/13/25 lidocaine 5 % topical patch 2 patch topical QDAY PRN pain #30 01/13/25 (Lidoderm) ea Allergies Allergy/AdvReac Type Severity Reaction Status Date / Time No Known Allergies Allergy Verified 01/13/25 01:06 Review of Systems Review of Systems Systems Reviewed: All systems reviewed, normal except as documented Past Medical History Past Medical History CARDIAC: Positive Atrial Fibrillation, Deep Vein Thrombosis and Hypertension GASTROINTESTINAL: Positive Gastrointestinal Disorders and Obesity GENITOURINARY: Positive Renal Disease and Benign Prostatic Hyperplasia MUSCULOSKELETAL: Positive Fractures PSYCHO/SOCIAL: Positive Anxiety OTHER HISTORY: Positive Measles Surgical History SURGICAL: Positive Angiogram Social History SMOKING STATUS: Former smoker ED Exam Narrative Physical exam: See [facility] for Dr. Brown's Physical Exam Documentation. Course Quality Measures none Orders Category Date Time Status Apply knee immobilizer NOW Care 01/13/25 05:[address] Screening NOW Care 01/13/25 01:30 Completed Crutches .NOW Care 01/13/25 05:25 Completed Insert IV NOW Care 01/13/25 01:[address] femur RT wo con Stat Exams 01/13/25 01:30 Completed XR knee RT 3V Stat Exams 01/13/25 01:29 Completed Ibuprofen Tab [Motrin Tab] Med 01/13/25 05:25 Discontinued 800 mg PO X1 ONE Lidocaine 5% Patch Med 01/13/25 05:25 Discontinued 2 patch TOP X1 ONE Vital Signs Vital signs: Vital Signs Temperature 98.8 F 01/13/25 01:25 Pulse Rate 108 H 01/13/25 01:25 Respiratory Rate 18 01/13/25 01:25 Blood Pressure 175/90 H 01/13/25 01:25 Pulse Oximetry (%) 97 01/13/25 01:25 Oxygen Delivery Method Room Air 01/13/25 01:25 Fall MDM Narrative MDM Narrative:: This section includes all my notes and documentations, including HPI, PE, and ED course. Jared Brown MD HPI: 69 y/o male with Hx of CVA, Atrial fibrillation, and HTN BIBA from home with right knee pain and back pain s/p twisting the right knee and falling onto his back approximately 36 hours ago. No head injury or LOC. No other complaints. ROS: All negative except as documented in HPI. Physical Exam: General: Alert and oriented. No acute distress. Eyes: Conjunctivae and lids clear. EOMI. PERRL. ENT: No signs of head trauma. Neck: No tenderness. Heart: RRR. Lungs: No respiratory distress. Good air movement. No rhonchi, wheezing, rales. Chest: No tenderness. Abdomen: Soft and nontender. Normal bowel sounds. No distension. No rebound or guarding. Back: No tenderness. Skin: Warm and dry. Neuro: Alert and oriented X 3. Cranial Nerves II-XII grossly intact. No peripheral motor deficits. Musculoskeletal: Remarkable for right hip tenderness and right knee tenderness. All other major joints and bones are not tender with no limited ROM. I reviewed EMS and [facility] notes. I reviewed all diagnostic test results: My interpretation of the Right Knee x-ray is no fracture. My review of the Right Femur CT report is no fracture. At this point, diagnoses include: Right Knee Sprain Treatment here included: Motrin 800 mg Lidocaine Patch Recommended more outpatient care. Based on my best medical judgment, made decision no further evaluation or treatment indicated at this time. Patient understands and agrees to the discharge instructions customized and printed, see below. Discharge Instructions from Dr. Brown: --After evaluation, there is no evidence of any broken bone. --You sprained your knee.? This means tears to your soft structures, such as sliwypd-hebqanh-jabytzjgq-cartilage.? --To help the healing process, minimal weight bearing (knee immobilizer and crutches) and elevate above waist level for 3 days as much as possible.?? --Apply ice for 20 minutes every 2-3 hours today and tomorrow.? --Take Ibuprofen 800 mg every 6-8 hours today and tomorrow to help decrease swelling then as needed.? --Most importantly, see a private doctor on 01/15/2025 for recheck and further care. If you are not better, you will need more care not available here in the ER--such as MRI imaging, bone scan, physical therapy, and a referral to see a specialist.? To make sure you don't have major tears needing surgery--cannot see big tears on x-rays.?? --Seek immediate medical care with any concerns.?? Jared Brown MD Patient data External records reviewed:: [facility] previous records (Reviewed prior ED records from 12/19/24. Patient was seen for Acute CVA (cerebrovascular accident).) and EMS form Clinical information provided by:: patient and EMS Social determinants that could affect healthcare access:: none Patient has the following chronic illnesses:: Atrial Fibrillation, Deep Vein Thrombosis, Hypertension, Obesity, Renal Disease, Benign Prostatic Hyperplasia, Anxiety How is presenting disease/condition affected by chronic disease/condition?: exacerbated by Evaluation data The following diagnostics were reviewed and interpreted by me:: radiology exam(s) Lab and/or radiology exams considered but not ordered:: None Interpretation Summary: I reviewed all diagnostic test results: My interpretation of the Right Knee x-ray is no fracture. My review of the Right Femur CT report is no fracture. Medications / Prescriptions Medications or Prescriptions considered but not ordered:: None Medication administrations:: Medication Administration History Discontinued Medications Ibuprofen (Ibuprofen Tab 400 Mg Tablet) 800 mg PO X1 ONE Stop: 01/13/25 05:26 Last Admin: 01/13/25 06:07 Dose: Not Given Documented By: GINETTE Non-Admin Reason: Patient Refused Lidocaine (Lidocaine 5% 1 Patch) 2 patch TOP X1 ONE Stop: 01/13/25 05:26 Last Admin: 01/13/25 06:08 Dose: Not Given Documented By: GINETTE Non-Admin Reason: Patient Refused Motrin 800 mg Lidocaine Patch Consultations Consultation(s) initiated? (list below): No Diagnosis Fall Differential Diagnosis: syncope, dislocation of shoulder region, fracture of wrist, compression fracture and concussion without loss of consciousness Most likely diagnosis given after review of the tests above:: Right Knee Sprain Admission Indicated Admission indicated?: not indicated Explain why admission is indicated or not indicated:: With no condition needing emergent intervention, there was no indication for admission. Admission Request Was there a request for admission?: No Disposition Plan Disposition Plan: Discharge Discharge Attestation Discharge Attestation: The patient and all family members were given an opportunity to ask questions and understood the discharge instructions. Discharge instructions specifically effects, indications for sooner follow up or return to the emergency department, and the expected course of current diagnosis. Patient condition: Stable Discharge Plan Plan Patient Disposition: HOME (Self Care) Prescriptions/Referrals Prescriptions/Med Rec: New ibuprofen 800 mg tablet 800 mg PO Q8H PRN (Reason: pain) Qty: 30 0RF lidocaine [Lidoderm] 5 % adhesive patch,medicated 2 patch topical QDAY PRN (Reason: pain) Qty: 30 0RF Rx Instructions: leave on most painful area for up to 12 hrs No Action Eliquis 5 mg tablet 5 mg PO BID Qty: 60 0RF furosemide 40 mg tablet 40 mg PO DAILY Patient Comments: TAKE 1 TABLET BY MOUTH TWICE A DAY Linzess 290 mcg capsule 290 mcg PO DAILY tamsulosin 0.4 mg capsule 0.4 mg PO DAILY Patient Comments: TAKE 2 CAPSULES BY MOUTH EVERY DAY magnesium 250 mg tablet 250 mg PO QDAY spironolactone 25 mg tablet 25 mg PO QDAY mecobalamin (vitamin B12) [B12 Active] 1,000 mcg tablet,chewable 1,000 mcg PO QDAY aspirin 81 mg tablet 81 mg PO QDAY 30 Days Qty: 30 0RF Rx Instructions: Take one tablet by mouth every day atorvastatin [Lipitor] 80 mg tablet 80 mg PO QPM 30 Days Qty: 30 0RF Rx Instructions: Take one tablet by mouth at bedtime Referrals: Clemente Gavin MD [Primary Care Provider, Nephrology] - In 1 week Problem List Clinical Impression: Right knee sprain Patient/Caregiver Discharge Instructions Discharge Activity: activity as tolerated Education Materials: ED Knee Sprain Additional Instructions: Discharge Instructions from Dr. Brown: --After evaluation, there is no evidence of any broken bone. --You sprained your knee.? This means tears to your soft structures, such as jgnkhxp-akopanp-ydiymaznn-cartilage.? --To help the healing process, minimal weight bearing (knee immobilizer and crutches) and elevate above waist level for 3 days as much as possible.?? --Apply ice for 20 minutes every 2-3 hours today and tomorrow.? --Take Ibuprofen 800 mg every 6-8 hours today and tomorrow to help decrease swelling then as needed.? --Most importantly, see a private doctor on 01/15/2025 for recheck and further care. If you are not better, you will need more care not available here in the ER--such as MRI imaging, bone scan, physical therapy, and a referral to see a specialist.? To make sure you don't have major tears needing surgery--cannot see big tears on x-rays.?? --Seek immediate medical care with any concerns.?? Print Language: Irish Stand Alone Forms: Sherrie Award Info., Patient Portal Info Letter
--- NOTE | 2025-01-13 01:29 | XR_ITS ---
Examination: Knee, right , 3 views Technique: Knee AP, lateral, oblique 3 views Date and time of exam: January 13, 2025, 0227 hrs. Indications: Patient fell 3 days ago with injury of the knee, knee pain. Findings: Advanced tricompartment osteoarthritis. No fracture or dislocation. Moderate knee effusion seen with internal derangement of the knee Impression: Moderate tricompartment osteoarthritis. No acute fracture Moderate knee effusion
--- NOTE | 2025-01-13 01:30 | XR_ITS ---
Examination: CT right femur, without contrast. 2-D sagittal reconstructions. 2-D coronal reconstructions. 3-D reconstructions. Date and time of exam:January 13, 2025, 0335 hrs. Indications: Patient fell today with injury of the right leg, right femur pain CTDI: vol (mGy):12.89 DLP: (mGycm):1487 Technique: Multiple 1.25 mm axial sections of the right femur without intravenous contrast have been obtained. 2-D sagittal and coronal reconstructions have been obtained. 3-D reconstructions have been obtained. Low dose protocols were performed. One or more of the following dose reduction techniques were used; automated exposure control, adjustment of the mA and/or KV according to patient size, use of iterative reconstruction technique. Findings: Moderate right hip osteoarthritis Right hip intact Greater trochanteric bursitis right hip Shaft of the femur intact Moderate right knee tricompartment osteoarthritis Soft tissue vascular calcification. 29 mm radiolucent lesion in the intertrochanteric region right hip Impression: No acute fracture Recommend plain films right hip to assess the 29th radiolucent lesion in the intertrochanteric region right hip
--- NOTE | 2025-01-13 04:48 | PRELIM_ITS ---
CT right femur without intravenous contrast (axial sections with sagittal and coronal reformats) January 13, 2025 at 0335 hours Clinical History: Fall. Comparison: No prior study is available for comparison. Findings: The femur is intact. There is well-defined lucent lesion in the proximal femoral shaft measuring 2.1 x 2.9 cm with central ring and arc calcification, likely benign. The remaining visualized bones and joints are unremarkable. There is diffuse osteopenia. No fracture or dislocation is seen. Multiple subchondral degenerative cysts are noted in the knee joint. There is narrowing of the knee joint space. Small to moderate knee joint effusion. Multiple marginal osteophytes are noted in the knee and ankle joint. Extensive periarticular calcification in the ankle joint. The visualized muscles are unremarkable with maintained intermuscular fat planes. Diffuse vascular calcification in the lower extremities. The visualized subcutaneous soft tissues are unremarkable. There is 1.7 x 3.0 cm Soni cyst. Impression: 1. No acute fracture or dislocation. 2. Moderate knee and ankle osteoarthritis. Small to moderate knee joint effusion. 3. Diffuse osteopenia. 4. Possible small enchondroma in the right proximal femur. Report Electronically Signed By: Todd Payton 01/13/2025 4:48:17 AM [EST]
[2025-01-13 06:08] VITALS: BP 154/68; PULSE 86; RESP 19; O2SAT 97
== END 2025-01-13 06:09 | disposition home or self-care (01) ==
PROVIDERS: Emergency Provider Emergency Medicine; PCP Internal Medicine
DX: S83.91XA Sprain of unspecified site of right knee, initial encounter (principal); S79.921A Unspecified injury of right thigh, initial encounter; W01.0XXA Fall on same level from slipping, tripping and stumbling without subsequent striking against object, initial encounter
CPT/HCPCS: 73562; 73700; 99284